=== PATIENT | female | born 1960 | race Caucasian/White ===

== ENCOUNTER → 2016-11-09 | Outpatient (CLI) | payer BC, MEDICARE ==
[~2016-11-09] MED LIST: ALBUAER3 IN; ASPI-231 PO; CARV3.1213 OR; INSUINJ37 SUBCUT; LORA10TA58 PO; MEC25T PO; MET10LQ PO; OMEP20TA44 PO; PIOG45TA6 PO; PRAV20TA3 OR; PREG50CA PO; RAMI5CAP18 PO; SUCR1TAB36 PO; [UNRECOGNIZED DRUG - CODE] PO
[2016-11-09 09:41] LABS: Basophils # (auto) 0.1 uL; Basophils % (auto) 0.6 % (0.0-2.0); Eosinophils # (auto) 0.2 uL; Eosinophils % (auto) 2.6 % (0.0-7.0); Hematocrit 33.9 % (36.0-46.0); Hemoglobin 10.9 g/dL (12.2-16.2); Lymphocytes # (auto) 1.4 uL; Mean Corpuscular Hemoglobin 27.9 pg (28.0-32.0); Mean Corpuscular Hgb Conc. 32.2 g/dL (32.0-36.0); Mean Corpuscular Volume 86.5 fL (80.0-100.0); Mean Platelet Volume 9.6 fL (7.4-10.4); Monocytes # (auto) 0.6 uL; Neutrophils # (auto) 6.6 uL; Neutrophils % (auto) 73.8 % (37.0-80.0); Platelet Count (auto) 342 10^3/uL (140-450); Red Cell Distribution Width 16.5 % (11.6-16.0)
[2016-11-09 10:17] LABS: Albumin 3.9 g/dL (3.4-5.0); BUN/Creatinine Ratio 26.4; Bilirubin, Total 0.2 mg/dL (0.2-1.0); Calcium 10.1 mg/dL (8.5-10.1); Total Protein 8.1 g/dL (6.4-8.2)
== END | disposition home or self-care (01) ==
LOC: LAB 09:27
PROVIDERS: ATTEND Podiatrist Foot & Ankle Surgery
DX: Z00.00 Encounter for general adult medical examination without abnormal findings (principal)
CPT/HCPCS: 36415; 80053; 85025

== ENCOUNTER 2017-05-03 10:52 | Inpatient (IN) | payer BC, MEDICARE ==
[~2017-05-03] VITALS: Ht 165.1 cm; Wt 99.2 kg
[2017-05-03] VITALS (42 sets, daily range): BP systolic 96–131; BP diastolic 55–76
[~2017-05-03 10:52] MED LIST changes: +CAR3125T OR; -CARV3.1213 OR
[2017-05-03] MEDS ORDERED: MORPHINE SULF INJ 2 MG/ML SYRINGE 1ML IV PRN ×2 (11:15)
[2017-05-03] MEDS ORDERED: NITROGLYCERIN 0.4 MG SL TAB SL PRN (11:15)
[2017-05-03] MEDS ORDERED: ACETAMINOPHEN 325 MG TAB PO PRN (11:15)
[2017-05-03] MEDS ORDERED: DEXTROSE (50%) 50ML SYRG IV PRN ×3 (11:15→16:30)
[2017-05-03] MEDS ORDERED: MECLIZINE HCL 25 MG TAB PO PRN (11:30)
[2017-05-03] MEDS ORDERED: ALBUTEROL SULF 2.5 MG/0.5ML(0.5%) NEB SOLN NEB PRN (11:30)
[2017-05-03] MEDS: ONDANSETRON HCL 4 MG/2 ML VIAL IV PRN ×2 (11:54→18:50)
[2017-05-03] MEDS: SODIUM CHLORIDE 0.9% 1,000 ML IV SCH ×2 (11:55→17:11)
[2017-05-03] MEDS ORDERED: ACCU-CHEK COMFORT CURVE STRIP VI SCH ×2 (12:00→13:30)
[2017-05-03] MEDS ORDERED: InsuLIN REG 1unit/0.01ml Soln (100units/ml) SC SCH (12:00)
[2017-05-03] MEDS ORDERED: InsuLIN R (HUMAN) 100 UNITS in SODIUM CHL 0.9% 99 ML IV SCH (12:17)
[2017-05-03] MEDS: SUCRALFATE 1 GM/10 ML ORAL SUSP PO SCH ×2 (12:30→17:03)
[2017-05-03] MEDS: ACCU-CHEK COMFORT CURVE STRIP VI SCH ×4 (13:44→20:00)
[2017-05-03] MEDS: METOCLOPRAMIDE HCL 10 MG TAB PO SCH ×2 (13:56→21:56)
[2017-05-03 13:57] LABS: Eosinophils # (auto) 0 uL; Hemoglobin 11.8 g/dL (12.2-16.2); Mean Platelet Volume 10.3 fL (6.9-10.8); Monocytes # (auto) 0.5 uL
[2017-05-03 13:59] LABS: Potassium 4.4 mmol/L (3.5-5.1)
[2017-05-03 14:00] LABS: BUN/Creatinine Ratio 31.6; Basophils # (auto) 0.1 uL; Basophils % (auto) 0.8 % (0.0-2.0); Calcium 9.4 mg/dL (8.5-10.1); Eosinophils % (auto) 0.4 % (0.0-7.0); Hematocrit 37.7 % (36.0-46.0); Lymphocytes % (auto) 14.6 % (10.0-50.0); Mean Corpuscular Hemoglobin 25.8 pg (28.0-32.0); Mean Corpuscular Hgb Conc. 31.4 g/dL (32.0-36.0); Mean Corpuscular Volume 82.1 fL (80.0-100.0); Neutrophils # (auto) 5.4 uL; Neutrophils % (auto) 77.2 % (37.0-80.0); Platelet Count (auto) 246 10^3/uL (140-450); Red Cell Distribution Width 17.1 % (11.8-14.3)
[2017-05-03] MEDS: BETHANECHOL CHLORIDE 25 MG TAB PO SCH ×2 (14:00→22:00)
[2017-05-03] MEDS ORDERED: BETHANECHOL CHLORIDE 25 MG TAB PO SCH (14:00)
[2017-05-03] MEDS ORDERED: INSULIN DETEMIR(LEVEMIR) 1unit/0.01ml Soln (100units/ml) SC ONE (16:00)
[2017-05-03] MEDS: HYDROmorphone HCL 2 MG/ML VL IV PRN ×2 (16:16→20:20)
[2017-05-03] MEDS: InsuLIN REG 1unit/0.01ml Soln (100units/ml) SC SCH (20:00)
[2017-05-03] MEDS: PRAVASTATIN SODIUM 20 MG TAB PO SCH (21:55)
[2017-05-03] MEDS: PREGABALIN 25 MG CAP PO SCH (21:56)
[2017-05-03] MEDS: LORATADINE 10 MG TAB PO SCH (21:56)
[2017-05-03] MEDS ORDERED: PANTOPRAZOLE 40 MG TAB PO SCH (22:00)
[2017-05-03] MEDS: [UNRECOGNIZED DRUG - OTHER] PO SCH (22:00)
[2017-05-03] MEDS: UROCIT K 10 MEQ PO SCH (22:00)
[2017-05-03] MEDS ORDERED: PRAVASTATIN SODIUM 20 MG TAB PO SCH (22:00)
[2017-05-04] VITALS (35 sets, daily range): BP systolic 93–132; BP diastolic 53–73
[2017-05-04] MEDS: SODIUM CHLORIDE 0.9% 1,000 ML IV SCH ×4 (00:20→22:00)
[2017-05-04] MEDS: HYDROmorphone HCL 2 MG/ML VL IV PRN ×4 (00:21→22:00)
[2017-05-04 03:32] LABS: Basophils # (auto) 0.1 uL; Eosinophils # (auto) 0.2 uL; Hemoglobin 10.4 g/dL (12.2-16.2); Neutrophils # (auto) 2.5 uL; White Blood Cell 4.9 10^3/uL (4.4-10.8)
[2017-05-04 03:34] LABS: Basophils % (auto) 1.3 % (0.0-2.0); Eosinophils % (auto) 4.6 % (0.0-7.0); Hematocrit 32.1 % (36.0-46.0); Lymphocytes # (auto) 1.5 uL; Lymphocytes % (auto) 30.5 % (10.0-50.0); Mean Corpuscular Hemoglobin 25.9 pg (28.0-32.0); Mean Corpuscular Hgb Conc. 32.3 g/dL (32.0-36.0); Mean Corpuscular Volume 80.1 fL (80.0-100.0); Mean Platelet Volume 9.9 fL (6.9-10.8); Monocytes # (auto) 0.6 uL; Monocytes % (auto) 11.7 % (0.0-12.0); Neutrophils % (auto) 51.9 % (37.0-80.0); Platelet Count (auto) 228 10^3/uL (140-450); Red Cell Distribution Width 17.1 % (11.8-14.3)
[2017-05-04 03:57] LABS: BUN/Creatinine Ratio 35.8; Calcium 8.9 mg/dL (8.5-10.1); Potassium 4.3 mmol/L (3.5-5.1)
[2017-05-04] MEDS: ACCU-CHEK COMFORT CURVE STRIP VI SCH ×7 (04:00→23:56)
[2017-05-04] MEDS: InsuLIN REG 1unit/0.01ml Soln (100units/ml) SC SCH ×7 (04:00→23:56)
[2017-05-04 04:01] LABS: Bilirubin, Total 0.1 mg/dL (0.2-1.0); Total Protein 6.3 g/dL (6.4-8.2)
[2017-05-04] MEDS: BETHANECHOL CHLORIDE 25 MG TAB PO SCH ×3 (06:00→21:50)
[2017-05-04] MEDS: METOCLOPRAMIDE HCL 10 MG TAB PO SCH ×3 (06:10→21:47)
[2017-05-04] MEDS: SUCRALFATE 1 GM/10 ML ORAL SUSP PO SCH ×3 (07:22→16:38)
[2017-05-04] MEDS: ONDANSETRON HCL 4 MG/2 ML VIAL IV PRN ×3 (07:57→21:54)
[2017-05-04 08:26] LABS: Urine Mucus FEW (None Seen); Urine RBC 1 /hpf (0 - 4); Urine Squamous Epithelial Cell MANY /hpf (<5)
[2017-05-04] MEDS: UROCIT K 10 MEQ PO SCH ×2 (09:11→21:49)
[2017-05-04] MEDS: RAMIPRIL 2.5 MG CAP PO SCH (09:12)
[2017-05-04] MEDS: PANTOPRAZOLE 40 MG/10 ML VIAL IV SCH ×2 (09:19→21:51)
[2017-05-04] MEDS: ASPirin 81 mg TAB PO SCH (09:20)
[2017-05-04] MEDS: CARVEDILOL 3.125 MG TAB PO SCH (09:20)
[2017-05-04] MEDS: CITALOPRAM HYDROBR 20 MG TAB PO SCH (09:20)
[2017-05-04] MEDS: FUROSEMIDE 40 MG TAB PO SCH (09:21)
[2017-05-04] MEDS: PREGABALIN 25 MG CAP PO SCH ×2 (09:21→21:46)
[2017-05-04] MEDS: PRAVASTATIN SODIUM 20 MG TAB PO SCH (21:47)
[2017-05-04] MEDS: [UNRECOGNIZED DRUG - OTHER] PO SCH (21:48)
[2017-05-04] MEDS: LORATADINE 10 MG TAB PO SCH (21:48)
[2017-05-05] MEDS: SODIUM CHLORIDE 0.9% 1,000 ML IV SCH ×4 (03:15→23:27)
[2017-05-05] MEDS: InsuLIN REG 1unit/0.01ml Soln (100units/ml) SC SCH ×6 (03:48→23:39)
[2017-05-05] MEDS: ACCU-CHEK COMFORT CURVE STRIP VI SCH ×6 (03:48→23:39)
[2017-05-05 05:00] VITALS: BP 136/67
[2017-05-05 05:13] LABS: Basophils # (auto) 0.1 uL; Eosinophils # (auto) 0.2 uL; Lymphocytes # (auto) 1.2 uL; Mean Corpuscular Hemoglobin 26.2 pg (28.0-32.0); Mean Corpuscular Hgb Conc. 32.5 g/dL (32.0-36.0); Mean Platelet Volume 10.3 fL (6.9-10.8); Monocytes # (auto) 0.5 uL; Neutrophils # (auto) 2.7 uL
[2017-05-05 05:18] LABS: Basophils % (auto) 1.3 % (0.0-2.0); Eosinophils % (auto) 5.3 % (0.0-7.0); Hematocrit 31.4 % (36.0-46.0); Hemoglobin 10.2 g/dL (12.2-16.2); Mean Corpuscular Volume 80.7 fL (80.0-100.0); Monocytes % (auto) 10.6 % (0.0-12.0); Neutrophils % (auto) 57.8 % (37.0-80.0); Platelet Count (auto) 202 10^3/uL (140-450); Red Cell Distribution Width 16.5 % (11.8-14.3); White Blood Cell 4.7 10^3/uL (4.4-10.8)
[2017-05-05 05:35] LABS: Potassium 4.5 mmol/L (3.5-5.1)
[2017-05-05 05:44] LABS: Albumin 2.9 g/dL (3.4-5.0); BUN/Creatinine Ratio 19.7; Calcium 8.6 mg/dL (8.5-10.1)
[2017-05-05 05:48] LABS: Bilirubin, Total 0.2 mg/dL (0.2-1.0); Total Protein 6.2 g/dL (6.4-8.2)
[2017-05-05] MEDS: BETHANECHOL CHLORIDE 25 MG TAB PO SCH ×3 (06:30→21:38)
[2017-05-05] MEDS: METOCLOPRAMIDE HCL 10 MG TAB PO SCH ×3 (06:52→21:33)
[2017-05-05] MEDS: SUCRALFATE 1 GM/10 ML ORAL SUSP PO SCH ×3 (06:53→17:11)
[2017-05-05] MEDS: HYDROmorphone HCL 2 MG/ML VL IV PRN ×3 (07:42→23:26)
[2017-05-05] MEDS: ONDANSETRON HCL 4 MG/2 ML VIAL IV PRN ×3 (07:42→23:26)
[2017-05-05 09:00] VITALS: BP 125/96
[2017-05-05] MEDS: UROCIT K 10 MEQ PO SCH ×2 (10:00→21:36)
[2017-05-05] MEDS: RAMIPRIL 2.5 MG CAP PO SCH (10:00)
[2017-05-05] MEDS: PREGABALIN 25 MG CAP PO SCH ×2 (10:00→21:34)
[2017-05-05] MEDS: PANTOPRAZOLE 40 MG/10 ML VIAL IV SCH ×2 (10:43→21:35)
[2017-05-05] MEDS: FUROSEMIDE 40 MG TAB PO SCH (10:44)
[2017-05-05] MEDS: CITALOPRAM HYDROBR 20 MG TAB PO SCH (10:45)
[2017-05-05] MEDS: CARVEDILOL 3.125 MG TAB PO SCH (10:45)
[2017-05-05] MEDS: ASPirin 81 mg TAB PO SCH (10:57)
[2017-05-05] MEDS: [UNRECOGNIZED DRUG - OTHER] PO SCH (10:58)
[2017-05-05 13:00] VITALS: BP 102/54
[2017-05-05 17:38] VITALS: BP 87/49
[2017-05-05] MEDS: LORATADINE 10 MG TAB PO SCH (21:33)
[2017-05-05] MEDS: PRAVASTATIN SODIUM 20 MG TAB PO SCH (21:34)
[2017-05-05 22:00] VITALS: BP 112/60
[2017-05-05] MEDS: INSULIN DETEMIR(LEVEMIR) 1unit/0.01ml Soln (100units/ml) SC SCH (22:00)
[2017-05-06] MEDS: ACCU-CHEK COMFORT CURVE STRIP VI SCH ×5 (04:23→20:29)
[2017-05-06] MEDS: HYDROmorphone HCL 2 MG/ML VL IV PRN ×5 (04:24→21:49)
[2017-05-06] MEDS: InsuLIN REG 1unit/0.01ml Soln (100units/ml) SC SCH ×5 (04:24→20:30)
[2017-05-06 05:00] VITALS: BP 115/61
[2017-05-06] MEDS: SODIUM CHLORIDE 0.9% 1,000 ML IV SCH ×3 (05:40→18:47)
[2017-05-06] MEDS: BETHANECHOL CHLORIDE 25 MG TAB PO SCH ×3 (05:41→21:39)
[2017-05-06] MEDS: SUCRALFATE 1 GM/10 ML ORAL SUSP PO SCH ×3 (05:41→17:34)
[2017-05-06] MEDS: METOCLOPRAMIDE HCL 10 MG TAB PO SCH ×3 (05:41→21:39)
[2017-05-06 06:33] LABS: Eosinophils # (auto) 0.2 uL; Hemoglobin 9.8 g/dL (12.2-16.2); Lymphocytes # (auto) 1.2 uL; Mean Corpuscular Hemoglobin 25.8 pg (28.0-32.0); Mean Corpuscular Hgb Conc. 31.9 g/dL (32.0-36.0); Monocytes # (auto) 0.5 uL; White Blood Cell 4.9 10^3/uL (4.4-10.8)
[2017-05-06 06:35] LABS: Basophils # (auto) 0.1 uL; Basophils % (auto) 1.2 % (0.0-2.0); Eosinophils % (auto) 4.4 % (0.0-7.0); Hematocrit 30.8 % (36.0-46.0); Lymphocytes % (auto) 25.7 % (10.0-50.0); Mean Corpuscular Volume 80.9 fL (80.0-100.0); Mean Platelet Volume 10.6 fL (6.9-10.8); Monocytes % (auto) 10.2 % (0.0-12.0); Neutrophils # (auto) 2.8 uL; Neutrophils % (auto) 58.5 % (37.0-80.0); Nucleated Red Blood Cells % 0.1 %; Platelet Count (auto) 212 10^3/uL (140-450); Red Cell Distribution Width 16.4 % (11.8-14.3)
[2017-05-06 06:41] LABS: INR 0.99 (0.9-1.15); Partial Thromboplastin Time 21.1 sec (22.64-33.71); Prothrombin Time 10.8 sec (9.37-12.3)
[2017-05-06 06:46] LABS: Albumin 2.8 g/dL (3.4-5.0); Calcium 8.5 mg/dL (8.5-10.1); Potassium 4.2 mmol/L (3.5-5.1)
[2017-05-06 06:49] LABS: BUN/Creatinine Ratio 18.3
[2017-05-06 06:52] LABS: Bilirubin, Total 0.2 mg/dL (0.2-1.0)
[2017-05-06] MEDS: ONDANSETRON HCL 4 MG/2 ML VIAL IV PRN ×2 (08:03→17:33)
[2017-05-06] MEDS ORDERED: diphenhdrAMINE HCL 50 MG/1 ML VL ONE (08:07)
[2017-05-06] MEDS ORDERED: SODIUM CHLORIDE LOCK 10 ML ONE (08:07)
[2017-05-06] MEDS ORDERED: LIDOCAINE VISCOUS 2% 15ML UD ONE (08:07)
[2017-05-06 09:00] VITALS: BP 115/62
[2017-05-06] MEDS: RAMIPRIL 2.5 MG CAP PO SCH ×2 (10:00→16:28)
[2017-05-06] MEDS: CARVEDILOL 3.125 MG TAB PO SCH ×3 (10:00→17:34)
[2017-05-06] MEDS: CITALOPRAM HYDROBR 20 MG TAB PO SCH ×2 (10:00→16:28)
[2017-05-06] MEDS: PREGABALIN 25 MG CAP PO SCH ×2 (10:00→21:39)
[2017-05-06] MEDS: FUROSEMIDE 40 MG TAB PO SCH ×2 (10:00→16:29)
[2017-05-06] MEDS: ASPirin 81 mg TAB PO SCH (10:00)
[2017-05-06] MEDS: UROCIT K 10 MEQ PO SCH ×2 (10:00→21:38)
[2017-05-06] MEDS: PANTOPRAZOLE 40 MG/10 ML VIAL IV SCH (10:00)
[2017-05-06] MEDS: MIDAZOLAM HCL 5 MG/ML-1ML VIAL ONE ×2 (11:50→11:54)
[2017-05-06] MEDS: fentaNYL CITRATE 100 MCG/2 ML VL ONE ×2 (11:50→11:54)
[2017-05-06 13:00] VITALS: BP 144/91
[2017-05-06] MEDS: Boost Glucose Control 8 Ounces PO SCH ×2 (13:18→18:44)
[2017-05-06 15:33] VITALS: BP 156/86
[2017-05-06 17:00] VITALS: BP 120/68
[2017-05-06] MEDS: [UNRECOGNIZED DRUG - OTHER] PO SCH (21:38)
[2017-05-06] MEDS: LORATADINE 10 MG TAB PO SCH (21:39)
[2017-05-06] MEDS: PRAVASTATIN SODIUM 20 MG TAB PO SCH (21:39)
[2017-05-06] MEDS: PANTOPRAZOLE 40 MG TAB PO SCH (21:39)
[2017-05-06] MEDS: INSULIN DETEMIR(LEVEMIR) 1unit/0.01ml Soln (100units/ml) SC SCH (21:40)
[2017-05-06 22:09] VITALS: BP 106/51
[2017-05-07] MEDS: InsuLIN REG 1unit/0.01ml Soln (100units/ml) SC SCH ×3 (01:26→08:00)
[2017-05-07] MEDS: HYDROmorphone HCL 2 MG/ML VL IV PRN ×2 (01:39→09:23)
[2017-05-07] MEDS: SODIUM CHLORIDE 0.9% 1,000 ML IV SCH (01:55)
[2017-05-07] MEDS: ACCU-CHEK COMFORT CURVE STRIP VI SCH ×3 (04:00→10:29)
[2017-05-07 05:20] VITALS: BP 90/45
[2017-05-07] MEDS: METOCLOPRAMIDE HCL 10 MG TAB PO SCH (06:00)
[2017-05-07] MEDS: BETHANECHOL CHLORIDE 25 MG TAB PO SCH (06:00)
[2017-05-07 06:46] LABS: Basophils # (auto) 0 uL; Eosinophils # (auto) 0.3 uL; Hemoglobin 9.8 g/dL (12.2-16.2); Neutrophils # (auto) 2.9 uL
[2017-05-07 06:49] LABS: Basophils % (auto) 0.9 % (0.0-2.0); Eosinophils % (auto) 5.1 % (0.0-7.0); Hematocrit 30.7 % (36.0-46.0); Lymphocytes # (auto) 1.3 uL; Lymphocytes % (auto) 25.5 % (10.0-50.0); Mean Corpuscular Hemoglobin 25.9 pg (28.0-32.0); Mean Corpuscular Volume 80.9 fL (80.0-100.0); Mean Platelet Volume 10.3 fL (6.9-10.8); Monocytes # (auto) 0.6 uL; Neutrophils % (auto) 56.5 % (37.0-80.0); Platelet Count (auto) 210 10^3/uL (140-450); Red Cell Distribution Width 16.2 % (11.8-14.3); White Blood Cell 5.2 10^3/uL (4.4-10.8)
[2017-05-07] MEDS: SUCRALFATE 1 GM/10 ML ORAL SUSP PO SCH (07:04)
[2017-05-07 07:13] LABS: BUN/Creatinine Ratio 25.3; Calcium 8.7 mg/dL (8.5-10.1); Potassium 4.4 mmol/L (3.5-5.1)
[2017-05-07 09:00] VITALS: BP 107/59
[2017-05-07] MEDS: UROCIT K 10 MEQ PO SCH (10:00)
[2017-05-07] MEDS: Boost Glucose Control 8 Ounces PO SCH (10:29)
[2017-05-07] MEDS: PREGABALIN 25 MG CAP PO SCH (10:30)
[2017-05-07] MEDS: ASPirin 81 mg TAB PO SCH (10:30)
[2017-05-07] MEDS: RAMIPRIL 2.5 MG CAP PO SCH (10:30)
[2017-05-07] MEDS: FUROSEMIDE 40 MG TAB PO SCH (10:31)
[2017-05-07] MEDS: CARVEDILOL 3.125 MG TAB PO SCH (10:31)
[2017-05-07] MEDS: PANTOPRAZOLE 40 MG TAB PO SCH (10:31)
[2017-05-07] MEDS: CITALOPRAM HYDROBR 20 MG TAB PO SCH (10:31)
[2017-05-07 10:51] VITALS: BP 107/59
[2017-05-07 13:00] VITALS: BP 107/70
== END 2017-05-07 12:00 | disposition home or self-care (01) | DRG 392 ==
LOC: TELE-CENTR 10:52 → ICU WEST 12:50 → TELE-EAST 05-04 11:47 → OVERFLOW 05-06 15:28 → TELE-EAST 05-06 15:29
PROVIDERS: ADMIT Internal Medicine; ATTEND Internal Medicine
PROC: 0DB68ZX Excision of Stomach, Via Natural or Artificial Opening Endoscopic, Diagnostic (ICD-10-PCS; principal; 2017-05-06 11:45)
DX: K21.0 Gastro-esophageal reflux disease with esophagitis (principal); E44.0 Moderate protein-calorie malnutrition; K29.70 Gastritis, unspecified, without bleeding; R13.10 Dysphagia, unspecified; I10 Essential (primary) hypertension; K29.60 Other gastritis without bleeding; E11.9 Type 2 diabetes mellitus without complications; E86.0 Dehydration; J45.909 Unspecified asthma, uncomplicated; Z87.440 Personal history of urinary (tract) infections; Z87.11 Personal history of peptic ulcer disease; Z68.36 Body mass index [BMI] 36.0-36.9, adult; Z90.49 Acquired absence of other specified parts of digestive tract; Z90.710 Acquired absence of both cervix and uterus
CPT/HCPCS: 36415; 71010; 80048; 80053; 81015; 82962; 83690; 85025; 85610; 85730; 87081; 87086; 93005; C9113; J1815; J2250; J2405

== ENCOUNTER 2017-06-02 14:16 | Inpatient (IN) | payer BC, MEDICARE ==
[~2017-06-02] VITALS: Ht 165.1 cm; Wt 96.5 kg
[2017-06-02] MEDS ORDERED: SODIUM CHLORIDE 0.9% 1,000 ML IV ONE ×4 (14:59→18:15)
[2017-06-02 15:20] LABS: Basophils # (auto) 0 uL; Basophils % (auto) 0.1 % (0.0-2.0); Eosinophils # (auto) 0 uL; Eosinophils % (auto) 0.1 % (0.0-7.0); Hematocrit 34.5 % (36.0-46.0); Hemoglobin 10.8 g/dL (12.2-16.2); Lymphocytes # (auto) 0.4 uL; Lymphocytes % (auto) 3.1 % (10.0-50.0); Mean Corpuscular Hemoglobin 25.8 pg (28.0-32.0); Mean Corpuscular Hgb Conc. 31.3 g/dL (32.0-36.0); Mean Corpuscular Volume 82.5 fL (80.0-100.0); Monocytes # (auto) 0.9 uL; Monocytes % (auto) 5.9 % (0.0-12.0); Neutrophils # (auto) 13.3 uL; Neutrophils % (auto) 90.8 % (37.0-80.0); Platelet Count (auto) 196 10^3/uL (140-450); Red Blood Cells 4.18 10^6/uL (4.0-5.20); Red Cell Distribution Width 17.6 % (11.8-14.3); White Blood Cell 14.6 10^3/uL (4.4-10.8)
[2017-06-02 15:29] LABS: INR 0.9 (0.9-1.15); Prothrombin Time 9.8 sec (9.37-12.3)
[2017-06-02 15:32] LABS: Albumin 2.5 g/dL (3.4-5.0); Anion Gap 23 (5-15); Blood Urea Nitrogen 44 mg/dL (7-18); Calcium 9.7 mg/dL (8.5-10.1); Carbon Dioxide 12 mmol/L (21-32); Chloride 82 mmol/L (98-107); Magnesium 2.2 mg/dL (1.6-2.6); Potassium 4.5 mmol/L (3.5-5.1)
[2017-06-02 15:33] LABS: Amylase 17 U/L (25-115); Lipase 125 U/L (73-393)
[2017-06-02 15:36] LABS: Alanine Aminotransferase 13 U/L (13-56); Aspartate Aminotransferase 7 U/L (15-37); GFR African American 57 mL/min; GFR Non-African American 47 mL/min; Total Protein 8.1 g/dL (6.4-8.2)
[2017-06-02 15:41] LABS: Alkaline Phosphatase 137 U/L (45-117); Bilirubin, Total 0.5 mg/dL (0.2-1.0)
[2017-06-02 15:56] LABS: Sodium 117 mmol/L (136-145)
[2017-06-02 15:57] LABS: BUN/Creatinine Ratio 35.2; Glucose 715 mg/dL (74-106)
[2017-06-02] MEDS ORDERED: InsuLIN R (HUMAN) 100 UNITS in SODIUM CHL 0.9% 99 ML IV SCH ×2 (15:57→16:54)
[2017-06-02] MEDS ORDERED: PIPERACILLIN-TAZOB 3.375GM 100 ML IV ONE ×2 (16:00→18:00)
[2017-06-02] MEDS ORDERED: DEXTROSE (50%) 50ML SYRG IV PRN ×2 (16:00→17:00)
[2017-06-02] MEDS ORDERED: ACCU-CHEK COMFORT CURVE STRIP VI SCH (16:30)
[2017-06-02] MEDS ORDERED: SOD CHL 0.9%/ KCL 20MEQ 1,000 ML IV SCH (17:00)
[2017-06-02] MEDS ORDERED: NITROGLYCERIN 0.4 MG SL TAB SL PRN (17:00)
[2017-06-02] MEDS ORDERED: MORPHINE SULFATE 10 MG/ML INJ 1ML SDV IV PRN (17:00)
[2017-06-02] MEDS: PROMETHAZINE HCL 25 MG/ML 1ML IV PRN (17:30)
[2017-06-02] MEDS: ACCU-CHEK COMFORT CURVE STRIP VI SCH ×4 (17:38→22:30)
[2017-06-02] MEDS: HYDROmorphone HCL 2 MG/ML VL IV PRN (17:42)
[2017-06-02 17:50] LABS: BUN/Creatinine Ratio 38.1; Calcium 9.3 mg/dL (8.5-10.1); Potassium 4.4 mmol/L (3.5-5.1)
[2017-06-02] MEDS ORDERED: cefTRIAXone 1GM/50ML D5W 50 ML IV ONE (18:00)
[2017-06-02] MEDS ORDERED: PANTOPRAZOLE 40 MG/10 ML VIAL IV ONE (18:00)
[2017-06-02 18:45] LABS: Urine Bacteria NONE SEEN /hpf (None Seen); Urine Blood Negative /uL (Negative); Urine Specific Gravity 1.016 (1.001-1.035); Urine WBC 6 /hpf (0 - 5)
[2017-06-02] MEDS: SOD CHL 0.9%/ KCL 20MEQ 1,000 ML IV SCH (20:00)
[2017-06-02] MEDS: PANTOPRAZOLE 80 MG in SODIUM CHL 0.9% 60 ML IV SCH (20:00)
[2017-06-03 00:24] LABS: BUN/Creatinine Ratio 34.4; Potassium 3.8 mmol/L (3.5-5.1)
[2017-06-03] MEDS: ACCU-CHEK COMFORT CURVE STRIP VI SCH ×6 (00:40→23:53)
[2017-06-03] MEDS: HYDROmorphone HCL 2 MG/ML VL IV PRN ×4 (01:06→20:22)
[2017-06-03] MEDS: PROMETHAZINE HCL 25 MG/ML 1ML IV PRN ×4 (01:06→20:22)
[2017-06-03] MEDS ORDERED: DEXTROSE (50%) 50ML SYRG IV PRN ×2 (01:30→06:15)
[2017-06-03] MEDS ORDERED: InsuLIN REG 1unit/0.01ml Soln (100units/ml) ONE (01:39)
[2017-06-03] MEDS: SOD CHL 0.9%/ KCL 20MEQ 1,000 ML IV SCH ×4 (03:00→23:53)
[2017-06-03 03:43] LABS: Basophils # (auto) 0 uL; Hemoglobin 9.6 g/dL (12.2-16.2); Monocytes # (auto) 1.3 uL
[2017-06-03 03:45] LABS: Basophils % (auto) 0.1 % (0.0-2.0); Eosinophils # (auto) 0.1 uL; Eosinophils % (auto) 0.5 % (0.0-7.0); Hematocrit 29.7 % (36.0-46.0); Lymphocytes # (auto) 0.6 uL; Lymphocytes % (auto) 4.3 % (10.0-50.0); Mean Corpuscular Hemoglobin 25.3 pg (28.0-32.0); Mean Corpuscular Hgb Conc. 32.4 g/dL (32.0-36.0); Mean Corpuscular Volume 78.2 fL (80.0-100.0); Monocytes % (auto) 8.8 % (0.0-12.0); Neutrophils # (auto) 12.8 uL; Neutrophils % (auto) 86.3 % (37.0-80.0); Platelet Count (auto) 175 10^3/uL (140-450); White Blood Cell 14.9 10^3/uL (4.4-10.8)
[2017-06-03] MEDS ORDERED: ACCU-CHEK COMFORT CURVE STRIP VI SCH (04:00)
[2017-06-03] MEDS ORDERED: InsuLIN REG 1unit/0.01ml Soln (100units/ml) SC SCH (04:00)
[2017-06-03 04:01] LABS: BUN/Creatinine Ratio 33.8; Calcium 8.6 mg/dL (8.5-10.1); Potassium 3.9 mmol/L (3.5-5.1)
[2017-06-03] MEDS: PANTOPRAZOLE 80 MG in SODIUM CHL 0.9% 60 ML IV SCH (04:27)
[2017-06-03] MEDS: InsuLIN REG 1unit/0.01ml Soln (100units/ml) SC SCH ×5 (08:15→23:54)
[2017-06-03] MEDS: cefTRIAXone 1GM/50ML D5W 50 ML IV SCH (09:30)
[2017-06-03] MEDS: METOCLOPRAMIDE HCL 5MG/ml INJ 2ml VIAL IV SCH ×2 (16:48→22:23)
[2017-06-03] MEDS: SUCRALFATE 1 GM/10 ML ORAL SUSP PO SCH ×2 (16:49→22:23)
[2017-06-03 17:00] VITALS: BP 156/89
[2017-06-03 20:00] VITALS: BP 150/65
[2017-06-03 21:30] VITALS: BP 150/65
[2017-06-03] MEDS: PANTOPRAZOLE 40 MG/10 ML VIAL IV SCH (22:24)
[2017-06-04] VITALS (8 sets, daily range): BP systolic 132–182; BP diastolic 72–89
[2017-06-04] MEDS: HYDROmorphone HCL 2 MG/ML VL IV PRN ×4 (02:36→21:07)
[2017-06-04] MEDS: PROMETHAZINE HCL 25 MG/ML 1ML IV PRN ×4 (02:36→21:06)
[2017-06-04] MEDS: InsuLIN REG 1unit/0.01ml Soln (100units/ml) SC SCH ×6 (04:01→23:50)
[2017-06-04] MEDS: ACCU-CHEK COMFORT CURVE STRIP VI SCH ×6 (04:01→23:50)
[2017-06-04] MEDS: METOCLOPRAMIDE HCL 5MG/ml INJ 2ml VIAL IV SCH ×3 (06:18→22:03)
[2017-06-04] MEDS: SUCRALFATE 1 GM/10 ML ORAL SUSP PO SCH ×4 (06:18→22:03)
[2017-06-04] MEDS ORDERED: METF-370 PO (07:07)
[2017-06-04 07:30] LABS: Basophils # (auto) 0 uL; Eosinophils # (auto) 0.3 uL; Hematocrit 31.6 % (36.0-46.0); Hemoglobin 10.3 g/dL (12.2-16.2); Lymphocytes # (auto) 1.1 uL; Neutrophils # (auto) 7.7 uL; Red Blood Cells 4.02 10^6/uL (4.0-5.20)
[2017-06-04 07:32] LABS: Basophils % (auto) 0.4 % (0.0-2.0); Lymphocytes % (auto) 10.5 % (10.0-50.0); Mean Corpuscular Hemoglobin 25.7 pg (28.0-32.0); Mean Corpuscular Hgb Conc. 32.7 g/dL (32.0-36.0); Mean Corpuscular Volume 78.7 fL (80.0-100.0); Monocytes % (auto) 9.8 % (0.0-12.0); Neutrophils % (auto) 76.3 % (37.0-80.0); Platelet Count (auto) 183 10^3/uL (140-450); Red Cell Distribution Width 17.3 % (11.8-14.3)
[2017-06-04 08:00] LABS: BUN/Creatinine Ratio 17.2; Bilirubin, Total 0.4 mg/dL (0.2-1.0); Calcium 8.4 mg/dL (8.5-10.1); Potassium 3.5 mmol/L (3.5-5.1); Total Protein 6.6 g/dL (6.4-8.2)
[2017-06-04] MEDS: SOD CHL 0.9%/ KCL 20MEQ 1,000 ML IV SCH ×3 (08:15→18:00)
[2017-06-04] MEDS: cefTRIAXone 1GM/50ML D5W 50 ML IV SCH (09:37)
[2017-06-04] MEDS: PANTOPRAZOLE 40 MG/10 ML VIAL IV SCH ×2 (09:37→22:03)
[2017-06-04] MEDS: LISINOPRIL 5 MG TAB PO SCH (09:38)
[2017-06-05] VITALS (8 sets, daily range): BP systolic 105–165; BP diastolic 48–89
[2017-06-05] MEDS: ACCU-CHEK COMFORT CURVE STRIP VI SCH ×5 (04:28→20:54)
[2017-06-05] MEDS: InsuLIN REG 1unit/0.01ml Soln (100units/ml) SC SCH ×5 (04:28→20:54)
[2017-06-05] MEDS: PROMETHAZINE HCL 25 MG/ML 1ML IV PRN (04:29)
[2017-06-05] MEDS: HYDROmorphone HCL 2 MG/ML VL IV PRN ×5 (04:29→22:46)
[2017-06-05] MEDS: SOD CHL 0.9%/ KCL 20MEQ 1,000 ML IV SCH ×3 (04:54→22:46)
[2017-06-05] MEDS: SUCRALFATE 1 GM/10 ML ORAL SUSP PO SCH ×4 (06:09→21:43)
[2017-06-05] MEDS: METOCLOPRAMIDE HCL 5MG/ml INJ 2ml VIAL IV SCH ×3 (06:09→21:44)
[2017-06-05 07:36] LABS: BUN/Creatinine Ratio 10.6; Calcium 8.2 mg/dL (8.5-10.1); Potassium 3.5 mmol/L (3.5-5.1)
[2017-06-05] MEDS: LISINOPRIL 5 MG TAB PO SCH (09:58)
[2017-06-05] MEDS: cefTRIAXone 1GM/50ML D5W 50 ML IV SCH (09:58)
[2017-06-05] MEDS: PANTOPRAZOLE 40 MG/10 ML VIAL IV SCH ×2 (09:58→21:45)
[2017-06-05] MEDS: ALBUTEROL SULF 2.5 MG/0.5ML(0.5%) NEB SOLN NEB PRN (20:59)
[2017-06-06] VITALS (8 sets, daily range): BP systolic 124–162; BP diastolic 77–89
[2017-06-06] MEDS: ACCU-CHEK COMFORT CURVE STRIP VI SCH ×6 (00:24→21:00)
[2017-06-06] MEDS: InsuLIN REG 1unit/0.01ml Soln (100units/ml) SC SCH ×6 (00:25→21:00)
[2017-06-06] MEDS: HYDROmorphone HCL 2 MG/ML VL IV PRN ×5 (04:31→22:02)
[2017-06-06 06:20] LABS: Hemoglobin 9.6 g/dL (12.2-16.2); White Blood Cell 7.3 10^3/uL (4.4-10.8)
[2017-06-06 06:21] LABS: Hematocrit 29.8 % (36.0-46.0); Mean Corpuscular Hemoglobin 25.4 pg (28.0-32.0); Mean Corpuscular Hgb Conc. 32.3 g/dL (32.0-36.0); Mean Corpuscular Volume 78.5 fL (80.0-100.0); Platelet Count (auto) 221 10^3/uL (140-450); Red Cell Distribution Width 17.7 % (11.8-14.3)
[2017-06-06 06:24] LABS: Basophils % (manual) 0 (0.0-2.0); Blast Cells 0; Myelocytes % 0; Promyelocytes % 0; Reactive Lymphocytes 0
[2017-06-06] MEDS: METOCLOPRAMIDE HCL 5MG/ml INJ 2ml VIAL IV SCH (06:30)
[2017-06-06] MEDS: SUCRALFATE 1 GM/10 ML ORAL SUSP PO SCH ×4 (06:30→21:58)
[2017-06-06 06:34] LABS: Albumin 1.9 g/dL (3.4-5.0); BUN/Creatinine Ratio 9.8; Bilirubin, Total 0.2 mg/dL (0.2-1.0); Calcium 8.2 mg/dL (8.5-10.1); Potassium 3.2 mmol/L (3.5-5.1); Total Protein 6.2 g/dL (6.4-8.2)
[2017-06-06 07:28] LABS: Band Neutrophils % (manual) 6; Eosinophils % (manual) 3 (0-7); Lymphocytes % (manual) 15 (10.0-50.0); Metamyelocytes % 2; Monocytes % (manual) 19 (0-12)
[2017-06-06] MEDS: ALBUTEROL SULF 2.5 MG/0.5ML(0.5%) NEB SOLN NEB PRN ×3 (07:35→22:15)
[2017-06-06] MEDS: cefTRIAXone 1GM/50ML D5W 50 ML IV SCH (09:44)
[2017-06-06] MEDS: PANTOPRAZOLE 40 MG/10 ML VIAL IV SCH ×2 (09:44→22:01)
[2017-06-06] MEDS: LISINOPRIL 5 MG TAB PO SCH (09:44)
[2017-06-06] MEDS ORDERED: InsuLIN REG 1unit/0.01ml Soln (100units/ml) SC ONE (12:30)
[2017-06-06] MEDS: POTASSIUM CHLORIDE 40 MEQ, LIDOCAINE 1% (LOCAL ANESTH.) 4 ML in SODIUM CHL 0.9% 250 ML IV SCH ×2 (12:33→16:21)
[2017-06-06] MEDS: SOD CHL 0.9%/ KCL 20MEQ 1,000 ML IV SCH (12:55)
[2017-06-06] MEDS: METOCLOPRAMIDE HCL 10 MG TAB PO SCH ×2 (13:07→22:03)
[2017-06-06] MEDS ORDERED: INSULIN DETEMIR(LEVEMIR) 1unit/0.01ml Soln (100units/ml) SC SCH (22:00)
[2017-06-07] MEDS: ACCU-CHEK COMFORT CURVE STRIP VI SCH ×3 (00:09→08:21)
[2017-06-07] MEDS: SOD CHL 0.9%/ KCL 20MEQ 1,000 ML IV SCH (02:35)
[2017-06-07] MEDS: HYDROmorphone HCL 2 MG/ML VL IV PRN ×2 (02:36→06:20)
[2017-06-07] MEDS: InsuLIN REG 1unit/0.01ml Soln (100units/ml) SC SCH ×3 (04:44→08:21)
[2017-06-07 05:00] VITALS: BP 141/82
[2017-06-07] MEDS: METOCLOPRAMIDE HCL 10 MG TAB PO SCH (06:12)
[2017-06-07] MEDS: SUCRALFATE 1 GM/10 ML ORAL SUSP PO SCH (06:12)
[2017-06-07] MEDS: ALBUTEROL SULF 2.5 MG/0.5ML(0.5%) NEB SOLN NEB PRN (06:44)
[2017-06-07 07:05] LABS: BUN/Creatinine Ratio 7.4; Calcium 8.9 mg/dL (8.5-10.1); Magnesium 1.9 mg/dL (1.6-2.6); Potassium 3.9 mmol/L (3.5-5.1)
[2017-06-07 09:44] VITALS: BP 131/79
== END 2017-06-07 10:40 | disposition home or self-care (01) | DRG 871 ==
LOC: ER 14:16 → TELE 14:17 → TELE-E-ADS 06-03 10:36 → TELE-CENTR 06-03 16:12
PROVIDERS: ADMIT Internal Medicine; ATTEND Internal Medicine
DX: A41.51 Sepsis due to Escherichia coli [E. coli] (principal); E11.10 Type 2 diabetes mellitus with ketoacidosis without coma; E43 Unspecified severe protein-calorie malnutrition; E11.42 Type 2 diabetes mellitus with diabetic polyneuropathy; K31.84 Gastroparesis; E83.42 Hypomagnesemia; E86.0 Dehydration; N39.0 Urinary tract infection, site not specified; E87.1 Hypo-osmolality and hyponatremia; K25.9 Gastric ulcer, unspecified as acute or chronic, without hemorrhage or perforation; K29.70 Gastritis, unspecified, without bleeding; D64.9 Anemia, unspecified; E78.5 Hyperlipidemia, unspecified; F41.9 Anxiety disorder, unspecified; I10 Essential (primary) hypertension; J44.9 Chronic obstructive pulmonary disease, unspecified; K21.9 Gastro-esophageal reflux disease without esophagitis; Z88.6 Allergy status to analgesic agent; Z68.35 Body mass index [BMI] 35.0-35.9, adult; Z90.49 Acquired absence of other specified parts of digestive tract; Z90.710 Acquired absence of both cervix and uterus; I25.2 Old myocardial infarction; Z23 Encounter for immunization
CPT/HCPCS: 36415; 36600; 71010; 74176; 80048; 80053; 81001; 82010; 82150; 82805; 82962; 83605; 83690; 83735; 84484; 85007; 85025; 85027; 85610; 85730; 87040; 87077; 87086; 87088; 87186; 93005; 94640; 96361; 96372; 96374; 96375; C9113; J0696; J1815; J2001; J2543

== ENCOUNTER 2018-08-12 11:45 | Emergency (ER) | payer MEDICARE, BC ==
[~2018-08-12] VITALS: Ht 165.1 cm; Wt 89.4 kg
[~2018-08-12 11:45] MED LIST changes: +METF-370 PO; -PIOG45TA6 PO; +PIOG45TA8 PO; -RAMI5CAP18 PO; -[UNRECOGNIZED DRUG - CODE] PO
[2018-08-12] MEDS ORDERED: CARISOPRODOL 350 MG TAB PO ONE (12:30)
[2018-08-12 13:06] LABS: Basophils # (auto) 0.1 uL; Eosinophils # (auto) 0.1 uL; Monocytes # (auto) 0.8 uL; Nucleated Red Blood Cells % 0.1 %
[2018-08-12 13:08] LABS: Basophils % (auto) 0.7 % (0.0-2.0); Eosinophils % (auto) 1.1 % (0.0-7.0); Hematocrit 33.9 % (36.0-46.0); Hemoglobin 10.3 g/dL (12.2-16.2); Lymphocytes # (auto) 1.2 uL; Lymphocytes % (auto) 10.8 % (10.0-50.0); Mean Corpuscular Hemoglobin 22.7 pg (28.0-32.0); Mean Corpuscular Hgb Conc. 30.4 g/dL (32.0-36.0); Mean Corpuscular Volume 74.7 fL (80.0-100.0); Neutrophils % (auto) 80.4 % (37.0-80.0); Platelet Count (auto) 386 10^3/uL (140-450); Red Blood Cells 4.55 10^6/uL (4.0-5.20); Red Cell Distribution Width 17.9 % (11.8-14.3); White Blood Cell 11.2 10^3/uL (4.4-10.8)
[2018-08-12 13:19] LABS: INR 0.95 (0.9-1.15); Partial Thromboplastin Time 31.3 sec (23.78-33.04); Prothrombin Time 10.2 sec (9.27-12.13)
[2018-08-12 13:24] LABS: Alanine Aminotransferase 23 U/L (13-56); Albumin 3.3 g/dL (3.4-5.0); Anion Gap 12 (5-15); Aspartate Aminotransferase 18 U/L (15-37); BUN/Creatinine Ratio 12.1; Blood Urea Nitrogen 17 mg/dL (7-18); Calcium 8.8 mg/dL (8.5-10.1); Carbon Dioxide 19 mmol/L (21-32); Chloride 106 mmol/L (98-107); GFR African American 50 mL/min; GFR Non-African American 41 mL/min; Glucose 154 mg/dL (74-106); Magnesium 1.9 mg/dL (1.6-2.6); Potassium 4.4 mmol/L (3.5-5.1); Sodium 137 mmol/L (136-145)
[2018-08-12 13:29] LABS: Alkaline Phosphatase 100 U/L (45-117); Bilirubin, Total 0.3 mg/dL (0.2-1.0); Total Protein 7.5 g/dL (6.4-8.2)
[2018-08-12] MEDS ORDERED: cefTRIAXone 1GM/50ML D5W 50 ML IV ONE (14:45)
[2018-08-12 14:57] VITALS: BP 95/63
== END 2018-08-12 15:20 | disposition home or self-care (01) ==
LOC: ER 11:59 → UNDOADMIN 14:03 → TELE 14:03 → ER 15:20
DX: S29.011A Strain of muscle and tendon of front wall of thorax, initial encounter (principal); N39.0 Urinary tract infection, site not specified; J44.9 Chronic obstructive pulmonary disease, unspecified; E11.9 Type 2 diabetes mellitus without complications; I10 Essential (primary) hypertension; I25.2 Old myocardial infarction; Z88.6 Allergy status to analgesic agent; Z79.82 Long term (current) use of aspirin; Z79.899 Other long term (current) drug therapy; Z79.84 Long term (current) use of oral hypoglycemic drugs; W22.8XXA Striking against or struck by other objects, initial encounter; Y93.89 Activity, other specified; Y99.8 Other external cause status; Y92.89 Other specified places as the place of occurrence of the external cause
CPT/HCPCS: 36415; 70450; 71101; 80053; 83735; 83880; 84484; 85025; 85610; 85730; 93005; 96365; 99284; J0696

== ENCOUNTER 2019-04-15 09:21 | Day surgery (SDC) | payer MEDICARE, BC ==
[2019-04-14 13:04] LABS: Basophils # (auto) 0.1 uL; Basophils % (auto) 0.7 % (0.0-2.0); Eosinophils # (auto) 0.2 uL; Eosinophils % (auto) 2.4 % (0.0-7.0); Hematocrit 34.1 % (36.0-46.0); Lymphocytes # (auto) 1.1 uL; Lymphocytes % (auto) 15.2 % (10.0-50.0); Mean Corpuscular Hemoglobin 28.6 pg (28.0-32.0); Mean Corpuscular Hgb Conc. 32.2 g/dL (32.0-36.0); Mean Corpuscular Volume 88.6 fL (80.0-100.0); Monocytes # (auto) 0.4 uL; Monocytes % (auto) 5.4 % (0.0-12.0); Neutrophils # (auto) 5.7 uL; Neutrophils % (auto) 76.3 % (37.0-80.0); Platelet Count (auto) 322 10^3/uL (140-450); Red Blood Cells 3.85 10^6/uL (4.0-5.20); Red Cell Distribution Width 15.8 % (11.8-14.3); Urine Bacteria NONE SEEN /hpf (None Seen); Urine Blood Negative /uL (Negative); Urine Hyaline Cast FEW /lpf (0 - 2); Urine Specific Gravity 1.027 (1.001-1.035); Urine WBC 1 /hpf (0 - 5); White Blood Cell 7.5 10^3/uL (4.4-10.8)
[2019-04-14 13:16] LABS: INR < 0.93 (0.9-1.15); Partial Thromboplastin Time 28.5 sec (23.64-32.05)
[2019-04-14 13:40] LABS: Albumin 3.1 g/dL (3.4-5.0); BUN/Creatinine Ratio 21.4; Calcium 9.4 mg/dL (8.5-10.1); Potassium 4.8 mmol/L (3.5-5.1)
[2019-04-14 13:42] LABS: Bilirubin, Total 0.2 mg/dL (0.2-1.0); Total Protein 7.3 g/dL (6.4-8.2)
[~2019-04-15] VITALS: Ht 165.1 cm; Wt 88.0 kg
[~2019-04-15 09:21] MED LIST changes: -ALBUAER3 IN; +BETH50TA2 PO; +BUSP10TA90 PO; -CAR3125T OR; +CITA-73 PO; +FLUT100I IN; +INSLISPI SC; -MEC25T PO; -MET10LQ PO; +MIDO5TAB22 PO; -PIOG45TA8 PO; +PRA25T PO; -PREG50CA PO; +RAMI5CAP40 PO; +RANI-226 PO; +SITA100T7 PO; +SODI650T PO
[2019-04-15] MEDS ORDERED: ceFAZolin 1GM/50ML 50 ML IV ONE (12:20)
[2019-04-15] MEDS ORDERED: ROPIVACAINE 0.5% (5MG/ML) 20ML AMPULE IJ ONE (13:27)
[2019-04-15] MEDS ORDERED: ETOMIDATE (2MG/ML) 20ML VIAL IV ONE (13:45)
[2019-04-15] MEDS ORDERED: PHENYLEPHRINE HCL 10 MG/ML VL IV ONE (13:45)
[2019-04-15] MEDS ORDERED: MIDAZOLAM HCL 1MG/1ML-2 ML VIAL ONE (13:53)
[2019-04-15] MEDS ORDERED: MEPERIDINE HCL (50 MG/ML) 1 ML VIAL ONE (13:53)
[2019-04-15] MEDS ORDERED: fentaNYL CITRATE 100 MCG/2 ML VL ONE (13:53)
[2019-04-15] MEDS ORDERED: PROPOFOL 10 MG/ML 20 ML IV ONE (14:22)
[2019-04-15] MEDS ORDERED: KETOROLAC TROMETH 30 MG/ML 1ML VIAL ONE (14:22)
[2019-04-15] MEDS ORDERED: ACCU-CHEK COMFORT CURVE STRIP VI ONE (14:30)
[2019-04-15] MEDS ORDERED: ONDANSETRON HCL 4 MG/2 ML VIAL IV PRN (14:30)
[2019-04-15] MEDS ORDERED: MIDAZOLAM HCL 1MG/1ML-2 ML VIAL IV PRN (14:30)
[2019-04-15] MEDS ORDERED: LABETALOL HCL 5 MG/ML 4ML SYRINGE IV PRN (14:30)
[2019-04-15] MEDS ORDERED: ePHEDrine SULFATE 50 MG/ML AMP IV PRN (14:30)
[2019-04-15] MEDS ORDERED: MORPHINE SULFATE 4 MG/ML SYR/VIAL IV PRN (14:30)
[2019-04-15] MEDS ORDERED: HYDROmorphone HCL 2 MG/ML VL IV PRN (14:30)
[2019-04-15 16:20] VITALS: BP 148/84
== END 2019-04-15 16:30 | disposition home or self-care (01) ==
LOC: SUR 09:21
PROVIDERS: ATTEND Podiatrist Foot & Ankle Surgery
DX: S82.842A Displaced bimalleolar fracture of left lower leg, initial encounter for closed fracture (principal); M85.872 Other specified disorders of bone density and structure, left ankle and foot; E11.9 Type 2 diabetes mellitus without complications; I10 Essential (primary) hypertension; J44.9 Chronic obstructive pulmonary disease, unspecified; K21.9 Gastro-esophageal reflux disease without esophagitis; E66.9 Obesity, unspecified; Z68.32 Body mass index [BMI] 32.0-32.9, adult; Z44.9 Encounter for fitting and adjustment of unspecified external prosthetic device; Z98.51 Tubal ligation status; Z90.710 Acquired absence of both cervix and uterus; Z98.890 Other specified postprocedural states; Z87.59 Personal history of other complications of pregnancy, childbirth and the puerperium; Z79.4 Long term (current) use of insulin; Z88.8 Allergy status to other drugs, medicaments and biological substances; X58.XXXA Exposure to other specified factors, initial encounter; Y93.89 Activity, other specified; Y92.89 Other specified places as the place of occurrence of the external cause; Y99.8 Other external cause status
CPT/HCPCS: 27814; 36415; 73600; 80053; 81001; 82962; 85025; 85610; 85730; 88304; 88311; 93005; C1713; J0690; J1170; J1885; J2175; J2250; J2370; J2704; J2795; J3010

== ENCOUNTER 2019-04-27 13:26 | Inpatient (IN) | payer MEDICARE, BC ==
[~2019-04-27] VITALS: Ht 165.1 cm; Wt 90.9 kg
[2019-04-27] MEDS ORDERED: NITROGLYCERIN 0.4 MG SL TAB SL PRN (14:30)
[2019-04-27] MEDS ORDERED: DEXTROSE (50%) 50ML SYRG IV PRN (14:30)
[2019-04-27] MEDS ORDERED: MORPHINE SULF INJ 2 MG/ML SYRINGE 1ML IV PRN (14:30)
[2019-04-27 14:45] VITALS: BP 123/84
--- NOTE | 2019-04-27 14:45 | NUR ---
Telemetry admit from [facility] admitted to Telemetry unit after SBAR received. Patient oriented to Beatrice Kern, primary RN, unit, room, bed, and unit policies regarding patient care and visiting hours. Patient weighed by bedscale and encouraged to call if they need something. All questions and concerns addressed, patient verbalized understanding.
[2019-04-27] MEDS: ONDANSETRON HCL 4 MG/2 ML VIAL IV PRN ×2 (15:30→23:53)
[2019-04-27] MEDS: SODIUM CHLORIDE 0.9% 1,000 ML IV SCH (15:30)
--- NOTE | 2019-04-27 15:45 | NUR ---
Pt placed of tele monitor, tele 34, sinus rhythm at 95 bpm. MRSA swab sent to lab.
[2019-04-27 15:47] LABS: Basophils # (auto) 0.1 uL; Eosinophils # (auto) 0.1 uL; Mean Corpuscular Hemoglobin 28.3 pg (28.0-32.0); Monocytes # (auto) 0.7 uL; Red Cell Distribution Width 15.6 % (11.8-14.3); White Blood Cell 10.1 10^3/uL (4.4-10.8)
[2019-04-27 15:49] LABS: Basophils % (auto) 0.7 % (0.0-2.0); Eosinophils % (auto) 0.8 % (0.0-7.0); Hematocrit 36.8 % (36.0-46.0); Hemoglobin 12.2 g/dL (12.2-16.2); Lymphocytes # (auto) 1.9 uL; Lymphocytes % (auto) 18.9 % (10.0-50.0); Mean Corpuscular Hgb Conc. 33.1 g/dL (32.0-36.0); Mean Corpuscular Volume 85.5 fL (80.0-100.0); Monocytes % (auto) 7.3 % (0.0-12.0); Neutrophils # (auto) 7.3 uL; Neutrophils % (auto) 72.3 % (37.0-80.0); Platelet Count (auto) 682 10^3/uL (140-450)
[2019-04-27 16:04] LABS: BUN/Creatinine Ratio 15.8; Calcium 10.3 mg/dL (8.5-10.1); Potassium 4.9 mmol/L (3.5-5.1)
[2019-04-27 17:00] VITALS: BP 122/83
[2019-04-27] MEDS: HYDROcodone-ACET 5/325MG TAB PO PRN ×2 (17:06→21:24)
[2019-04-27] MEDS: ACCU-CHEK COMFORT CURVE STRIP VI SCH (17:07)
[2019-04-27] MEDS: InsuLIN REG 1unit/0.01ml Soln (100units/ml) SC SCH (17:12)
--- NOTE | 2019-04-27 17:31 | NUR ---
Dr. Williamson at bed side to see pt, doctor discussed the plan of care with pt and pt's .
[2019-04-27] MEDS: cefTRIAXone 1GM/50ML D5W 50 ML IV SCH (18:46)
--- NOTE | 2019-04-27 19:30 | NUR ---
Opening Shift Note Assumed care of patient, alert and oriented x 4. No S/S of distress/SOB. C/O pain level of 8/10 to LT ankle. ambulatory to bedside commode. On room air. Contact precautions in place. Bed in lowest locked position, side rails up x 2, call light within reach. Instructed on POC and to call for assist PRN, will continue to monitor for changes Q1hr and PRN.
[2019-04-27 20:00] VITALS: BP 134/79
[2019-04-27 20:13] LABS: Urine WBC None Seen /hpf (0 - 5)
[2019-04-27 21:03] LABS: Urine Bacteria NONE SEEN /hpf (None Seen); Urine Blood Negative /uL (Negative); Urine Specific Gravity 1.008 (1.001-1.035)
[2019-04-27 21:48] VITALS: BP 134/79
[2019-04-27] MEDS: CLINDAMYCIN 300MG IV 50 ML IV SCH (21:52)
[2019-04-27] MEDS ORDERED: ENOXAPARIN SOD 40 MG/0.4 ML SYRINGE SC SCH (22:00)
[2019-04-28] MEDS: ACCU-CHEK COMFORT CURVE STRIP VI SCH ×5 (00:01→23:46)
[2019-04-28] MEDS: SODIUM CHLORIDE 0.9% 1,000 ML IV SCH ×3 (00:30→23:46)
[2019-04-28] MEDS: HYDROcodone-ACET 5/325MG TAB PO PRN ×2 (01:32→05:40)
[2019-04-28 04:49] VITALS: BP 181/83
--- NOTE | 2019-04-28 05:10 | NUR ---
LEFT MESSAGE WITH STAFFING ASSISTANT ANSWERING SERVICE FOR DR. FUENTES. NOTIFIED OF ELEVATED BLOOD PRESSURE OF 181/83. AWAITING CALL BACK. PATIENT A&OX4, NO S/S OF ACUTE DISTRESS NOTED.
[2019-04-28 05:12] LABS: Basophils # (auto) 0.1 uL; Eosinophils # (auto) 0 uL; Eosinophils % (auto) 0.5 % (0.0-7.0); Hematocrit 34.9 % (36.0-46.0); Hemoglobin 11.6 g/dL (12.2-16.2); Lymphocytes # (auto) 0.9 uL; Lymphocytes % (auto) 10.5 % (10.0-50.0); Mean Corpuscular Hemoglobin 28.3 pg (28.0-32.0); Mean Corpuscular Hgb Conc. 33.3 g/dL (32.0-36.0); Mean Corpuscular Volume 85.1 fL (80.0-100.0); Monocytes # (auto) 0.6 uL; Monocytes % (auto) 6.1 % (0.0-12.0); Neutrophils # (auto) 7.4 uL; Neutrophils % (auto) 81.9 % (37.0-80.0); Platelet Count (auto) 572 10^3/uL (140-450); Red Blood Cells 4.11 10^6/uL (4.0-5.20); Red Cell Distribution Width 15.7 % (11.8-14.3)
[2019-04-28 05:32] LABS: Calcium 9.5 mg/dL (8.5-10.1)
[2019-04-28 05:35] LABS: Albumin 3.3 g/dL (3.4-5.0); BUN/Creatinine Ratio 17.9
--- NOTE | 2019-04-28 05:35 | NUR ---
RECEIVED CALL BACK FROM DR. FUENTES. AWARE OF PATIENTS ELEVATED BLOOD PRESSURE AND PAIN 10/10 TO RIGHT FLANK. ORDERED TO MONITOR BLOOD PRESSURE AND RECEIVED ORDER FOR DILAUDED 0.5 MG IV Q4HR PRN. RBO AND VERIFIED. WILL CARRY OUT AND CONTINUE CARE.
[2019-04-28 05:38] LABS: Bilirubin, Total 0.2 mg/dL (0.2-1.0); Total Protein 7.6 g/dL (6.4-8.2)
[2019-04-28] MEDS: CLINDAMYCIN 300MG IV 50 ML IV SCH ×3 (05:39→21:34)
[2019-04-28] MEDS: InsuLIN REG 1unit/0.01ml Soln (100units/ml) SC SCH ×5 (05:40→23:46)
[2019-04-28] MEDS: HYDROmorphone HCL 2 MG/ML VL IV PRN ×5 (05:50→22:46)
[2019-04-28] MEDS: ONDANSETRON HCL 4 MG/2 ML VIAL IV PRN (06:30)
--- NOTE | 2019-04-28 07:01 | NUR ---
ENDORSED CARE TO DAYSHIFT TAJ CORBETT.
--- NOTE | 2019-04-28 08:00 | NUR ---
Opening Shift Note Assumed care of patient, awake and alert X4. No S/S of distress/SOB or pain. InsTructed on POC and to call for assist PRN, will continue to monitor for changes Q1hr and PRN.
[2019-04-28] MEDS: PANTOPRAZOLE 40 MG TAB PO SCH (08:59)
[2019-04-28 09:00] VITALS: BP 155/76
[2019-04-28] MEDS: cefTRIAXone 1GM/50ML D5W 50 ML IV SCH (09:00)
[2019-04-28] MEDS: ENOXAPARIN SOD 40 MG/0.4 ML SYRINGE SC SCH (09:00)
--- NOTE | 2019-04-28 09:22 | NUR ---
CARLOS AMANDA REGARDING DRESSING CHANGE. STATED OK TO CHANGE DRESSING.
--- NOTE | 2019-04-28 10:00 | NUR ---
Brodie GINA AT BEDSIDE. UPDATED ON PATIENT STATUS. NO NEW ORDERS RECEIVED. WILL CONTINUE CARE
[2019-04-28 13:00] VITALS: BP 146/76
--- NOTE | 2019-04-28 15:36 | NUR ---
Assessment Pt is a 58 yr old alert and oriented female. Prior to admit, pt went to primary Dr. Williamson with complaints of right kidney pain and left-sided face pain. Dr. Williamson instructed her to go to the hospital. Pt is living with her , Tyrone, who is her emergency contact at [phone]. Prior to admit, pt used an electric scooter to ambulate. Pt and her are able to cook and clean between the 2 of them and was independent with ADLs. Pt stated that her and daughter have been helpful and have helped to take care of her. 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 Pt expressed that due to this condition, she is worried about falling again at home when no one is around. Pts is retired and is often home but pt stated that her primary doctor recommended that she gets a manual w/c and sits in it when she doesnt have family members around to prevent future falls. GUTIERREZ asked the pt if she would feel safe to go home if she had a w/c for extra support. Pt agreed. GUTIERREZ talked with pts nurse to notify them of the need for a w/c for safety precautions in the home. Pt has no current interest in AD. No other needs or concerns expressed at this time. Addendum: 04/28/19 at 1536 by NAYA CAST Amended: Links added.
--- NOTE | 2019-04-28 16:00 | NUR ---
DRESSING TO LEFT ANKLE CHANGED. NOTED SEROSANGUINEOUS DRAINAGE ON BOTH INCISIONS. INTERIOR INCISION REDDENED WITH SMALL AMOUNT OF SEROUS DRAINAGE. CLEANED WITH WOUND CLEANSER AND WRAPPED WITH KERLIX. SPLINT PUT BACK IN PLACE. PATIENT TOLERATED WELL.
--- NOTE | 2019-04-28 19:00 | NUR ---
ENDORSED CARE TO TAJ BAEZ. ALL QUESTIONS ANSWERED. FALL PRECAUTIONS IN PLACE. PATIENT IN NO S/S OF DISTRESS AT THIS TIME.
--- NOTE | 2019-04-28 19:45 | NUR ---
OPENING SHIFT NOTE ASSUMED CARE OF PATIENT, A&OX4. ON ROOM AIR AND AMBULATORY TO BEDSIDE COMMODE. NO S/S OF ACUTE DISTRESS OR SOB. NO PAIN. ON CONTACT ISOLATION PRECAUTIONS. BED IN LOWEST LOCKED POSITION, SIDE RAILS UP X 2, CALL LIGHT WITHIN REACH. INSTRUCTED ON POC AND TO CALL FOR ASSIST PRN. WILL CONTINUE TO MONITOR EVERY HOUR AND NEEDED.
[2019-04-28 20:00] VITALS: BP 111/62
[2019-04-28 22:01] VITALS: BP 111/62
[2019-04-29] MEDS: ONDANSETRON HCL 4 MG/2 ML VIAL IV PRN ×2 (01:11→07:30)
[2019-04-29] MEDS: HYDROmorphone HCL 2 MG/ML VL IV PRN ×5 (03:00→20:08)
[2019-04-29 05:00] VITALS: BP 169/98
[2019-04-29] MEDS: ACCU-CHEK COMFORT CURVE STRIP VI SCH ×3 (05:30→17:59)
[2019-04-29] MEDS: CLINDAMYCIN 300MG IV 50 ML IV SCH ×3 (05:30→22:10)
[2019-04-29] MEDS: InsuLIN REG 1unit/0.01ml Soln (100units/ml) SC SCH ×3 (05:31→18:00)
[2019-04-29] MEDS: SODIUM CHLORIDE 0.9% 1,000 ML IV SCH ×2 (05:32→17:03)
[2019-04-29 06:15] LABS: Eosinophils # (auto) 0.1 uL; Lymphocytes # (auto) 0.8 uL; Monocytes # (auto) 0.5 uL; Red Cell Distribution Width 15.3 % (11.8-14.3)
[2019-04-29 06:18] LABS: Basophils # (auto) 0.1 uL; Basophils % (auto) 0.6 % (0.0-2.0); Eosinophils % (auto) 0.6 % (0.0-7.0); Hematocrit 35.6 % (36.0-46.0); Hemoglobin 11.7 g/dL (12.2-16.2); Lymphocytes % (auto) 9.4 % (10.0-50.0); Mean Corpuscular Hemoglobin 27.9 pg (28.0-32.0); Mean Corpuscular Hgb Conc. 32.9 g/dL (32.0-36.0); Mean Corpuscular Volume 84.7 fL (80.0-100.0); Monocytes % (auto) 5.9 % (0.0-12.0); Neutrophils # (auto) 7.5 uL; Neutrophils % (auto) 83.5 % (37.0-80.0); Platelet Count (auto) 576 10^3/uL (140-450); Red Blood Cells 4.21 10^6/uL (4.0-5.20)
[2019-04-29 06:30] LABS: Albumin 3.1 g/dL (3.4-5.0); Calcium 9.3 mg/dL (8.5-10.1); Potassium 3.9 mmol/L (3.5-5.1)
[2019-04-29 06:32] LABS: BUN/Creatinine Ratio 16.9
[2019-04-29 06:35] LABS: Bilirubin, Total 0.3 mg/dL (0.2-1.0); Total Protein 7.7 g/dL (6.4-8.2)
--- NOTE | 2019-04-29 07:30 | NUR ---
Opening Shift Note Assumed care of patient, awake and alert X4. No S/S of distress/SOB. Patient reports pain at a 10/10 to Right lower back area. Instructed on POC and to call for assist PRN, will continue to monitor for changes Q1hr and PRN.
[2019-04-29 09:00] VITALS: BP 122/67
[2019-04-29] MEDS: PANTOPRAZOLE 40 MG TAB PO SCH (09:05)
[2019-04-29] MEDS: ENOXAPARIN SOD 40 MG/0.4 ML SYRINGE SC SCH (09:05)
[2019-04-29] MEDS: cefTRIAXone 1GM/50ML D5W 50 ML IV SCH (09:05)
--- NOTE | 2019-04-29 10:00 | NUR ---
Brodie GINA AT BEDSIDE. RECEIVED NEW ORDERS. WILL FOLLOW THROUGH.
[2019-04-29 13:05] VITALS: BP 106/79
[2019-04-29 17:28] VITALS: BP 109/66
--- NOTE | 2019-04-29 19:45 | NUR ---
Opening Shift Note Assumed care of patient, awake and alert oriented x4. No S/S of distress/SOB noted. Bed is in lowest locked position with bed rails up x2 and call light is within reach of the patient. Instructed on POC and to call for assist PRN.
[2019-04-29 22:00] VITALS: BP 137/72
[2019-04-30] MEDS: ACCU-CHEK COMFORT CURVE STRIP VI SCH ×3 (00:10→11:58)
[2019-04-30] MEDS: HYDROmorphone HCL 2 MG/ML VL IV PRN ×3 (00:10→08:40)
[2019-04-30] MEDS: InsuLIN REG 1unit/0.01ml Soln (100units/ml) SC SCH ×3 (00:19→11:58)
[2019-04-30] MEDS: SODIUM CHLORIDE 0.9% 1,000 ML IV SCH ×2 (00:20→12:30)
[2019-04-30 05:00] VITALS: BP 152/88
[2019-04-30] MEDS: CLINDAMYCIN 300MG IV 50 ML IV SCH (05:33)
[2019-04-30 06:04] LABS: Basophils # (auto) 0 uL; Basophils % (auto) 0.7 % (0.0-2.0); Eosinophils # (auto) 0.1 uL; Eosinophils % (auto) 1.6 % (0.0-7.0); Hematocrit 33.7 % (36.0-46.0); Lymphocytes # (auto) 1.2 uL; Lymphocytes % (auto) 19.9 % (10.0-50.0); Mean Corpuscular Hemoglobin 28.2 pg (28.0-32.0); Mean Corpuscular Hgb Conc. 32.6 g/dL (32.0-36.0); Mean Corpuscular Volume 86.5 fL (80.0-100.0); Monocytes # (auto) 0.6 uL; Monocytes % (auto) 10.1 % (0.0-12.0); Neutrophils # (auto) 4.1 uL; Neutrophils % (auto) 67.7 % (37.0-80.0); Nucleated Red Blood Cells % 0.1 %; Platelet Count (auto) 502 10^3/uL (140-450); Red Cell Distribution Width 15.7 % (11.8-14.3)
[2019-04-30 06:26] LABS: Potassium 4.5 mmol/L (3.5-5.1)
[2019-04-30 06:32] LABS: BUN/Creatinine Ratio 20.8; Bilirubin, Total 0.2 mg/dL (0.2-1.0); Calcium 9.3 mg/dL (8.5-10.1)
[2019-04-30 09:00] VITALS: BP 168/96
[2019-04-30] MEDS: cefTRIAXone 1GM/50ML D5W 50 ML IV SCH (09:00)
[2019-04-30] MEDS: PANTOPRAZOLE 40 MG TAB PO SCH (11:57)
[2019-04-30] MEDS: ENOXAPARIN SOD 40 MG/0.4 ML SYRINGE SC SCH (11:58)
[2019-04-30 13:00] VITALS: BP 166/95
--- NOTE | 2019-04-30 14:30 | NUR ---
D/C Planning Per SS consult for wheelchair due to non weight bearing. I was unable to complete order for wheelchair due to Pt leaving and signing AMA for wheelchair.
[2019-05-26] MEDS ORDERED: ALBUAER3 IN (14:52)
== END 2019-04-30 14:00 | disposition home or self-care (01) | DRG 638 ==
LOC: TELE-CENTR 14:02
PROVIDERS: ADMIT Internal Medicine; ATTEND Internal Medicine
DX: E11.65 Type 2 diabetes mellitus with hyperglycemia (principal); E44.0 Moderate protein-calorie malnutrition; J01.90 Acute sinusitis, unspecified; F32.9 Major depressive disorder, single episode, unspecified; E88.09 Other disorders of plasma-protein metabolism, not elsewhere classified; J45.909 Unspecified asthma, uncomplicated; K29.70 Gastritis, unspecified, without bleeding; I10 Essential (primary) hypertension; G90.8 Other disorders of autonomic nervous system; K21.9 Gastro-esophageal reflux disease without esophagitis; Z87.440 Personal history of urinary (tract) infections; Z87.11 Personal history of peptic ulcer disease; Z90.710 Acquired absence of both cervix and uterus; Z90.49 Acquired absence of other specified parts of digestive tract; Z88.6 Allergy status to analgesic agent; Z79.899 Other long term (current) drug therapy; Z68.33 Body mass index [BMI] 33.0-33.9, adult
CPT/HCPCS: 36415; 76775; 80048; 80053; 81001; 82962; 85025; 87040; 87081; 87086; 87205; G0378; J0696; J1815; J2405; J3490

== ENCOUNTER 2019-05-27 10:50 | Inpatient (IN) | payer MEDICARE, OTHER ==
[2019-05-26 15:43] LABS: Eosinophils # (auto) 0.1 uL; Lymphocytes # (auto) 2.2 uL; Neutrophils # (auto) 5.2 uL; Nucleated Red Blood Cells % 0.1 %; Red Cell Distribution Width 16.8 % (11.8-14.3)
[2019-05-26 15:47] LABS: Basophils # (auto) 0 uL; Basophils % (auto) 0.5 % (0.0-2.0); Eosinophils % (auto) 1.7 % (0.0-7.0); Hematocrit 32.9 % (36.0-46.0); Hemoglobin 10.7 g/dL (12.2-16.2); Lymphocytes % (auto) 27.5 % (10.0-50.0); Mean Corpuscular Hemoglobin 28.5 pg (28.0-32.0); Mean Corpuscular Hgb Conc. 32.6 g/dL (32.0-36.0); Mean Corpuscular Volume 87.3 fL (80.0-100.0); Monocytes # (auto) 0.5 uL; Monocytes % (auto) 5.9 % (0.0-12.0); Neutrophils % (auto) 64.4 % (37.0-80.0); Platelet Count (auto) 533 10^3/uL (140-450); Red Blood Cells 3.76 10^6/uL (4.0-5.20); White Blood Cell 8.1 10^3/uL (4.4-10.8)
[2019-05-26 15:56] LABS: INR < 0.93 (0.9-1.15); Partial Thromboplastin Time 28.3 sec (23.64-32.05)
[2019-05-26 16:14] LABS: Urine Bacteria NONE SEEN /hpf (None Seen); Urine Blood Negative /uL (Negative); Urine WBC 3 /hpf (0 - 5)
[2019-05-26 16:17] LABS: Albumin 3.3 g/dL (3.4-5.0); BUN/Creatinine Ratio 18.7; Bilirubin, Total 0.2 mg/dL (0.2-1.0); Calcium 9.6 mg/dL (8.5-10.1); Potassium 4.4 mmol/L (3.5-5.1); Total Protein 7.7 g/dL (6.4-8.2)
[~2019-05-27] VITALS: Ht 165.1 cm; Wt 87.6 kg
[~2019-05-27 10:50] MED LIST changes: +ALBUAER3 IN
[2019-05-27] MEDS ORDERED: ceFAZolin 1GM VL ONE ×2 (13:18→13:50)
[2019-05-27] MEDS ORDERED: MIDAZOLAM HCL 1MG/1ML-2 ML VIAL ONE (13:37)
[2019-05-27] MEDS ORDERED: fentaNYL CITRATE 100 MCG/2 ML VL ONE ×2 (13:37→14:29)
[2019-05-27] MEDS ORDERED: PROPOFOL 10 MG/ML 20 ML IV ONE (13:38)
[2019-05-27] MEDS ORDERED: ePHEDrine SULFATE 50 MG/ML AMP IV PRN (14:00)
[2019-05-27] MEDS ORDERED: ONDANSETRON HCL 4 MG/2 ML VIAL IV PRN ×2 (14:00→14:15)
[2019-05-27] MEDS ORDERED: fentaNYL CITRATE 100 MCG/2 ML VL IV PRN (14:00)
[2019-05-27] MEDS ORDERED: hydrALAZINE HCL 20 MG/ML VL IV PRN (14:00)
[2019-05-27] MEDS ORDERED: VANCOMYCIN PER PHARMACY 0 MG IV SCH (14:15)
[2019-05-27] MEDS ORDERED: DEXTROSE (50%) 50ML SYRG IV PRN (14:15)
--- NOTE | 2019-05-27 15:45 | NUR ---
PATIENT ARRIVED FROM RECOVERY ROOM VIA HOSPITAL BED, ALERT ORIENTED X4, NO DISTRESS NOTED, HEAD OF BED ELEVATED, PT HAS SOFT SPLINT AT THE LEFT LOWER LEG, PATIENT TOES WARM TO TOUCH, POSITIVE DORSALIS PULSES, LEFT HAND 22 G WITH LR INFUSION,ROOM ORIENTATION GIVEN TO PT, ON A PRIVATE ROOM FOR HISTORY OF MRSA, IN CONTACT ISOLATION, REMAIN AT BED SIDE AT ALL TIMES.
[2019-05-27] MEDS: InsuLIN REG 1unit/0.01ml Soln (100units/ml) SC SCH ×2 (17:00→22:00)
[2019-05-27] MEDS: MORPHINE SULF INJ 2 MG/ML SYRINGE 1ML IV PRN ×2 (17:50→22:51)
[2019-05-27] MEDS: ACCU-CHEK COMFORT CURVE STRIP VI SCH ×2 (17:57→22:56)
[2019-05-27] MEDS: SUCRALFATE 1 GM TAB PO SCH ×2 (17:57→22:50)
[2019-05-27 17:58] VITALS: BP 134/79
[2019-05-27] MEDS: MIDODRINE HCL 10 MG TAB PO SCH (17:58)
[2019-05-27] MEDS: VANCOMYCIN 750mg/250ml 250 ML IV SCH (18:21)
--- NOTE | 2019-05-27 18:35 | NUR ---
PT CONTINUE STABLE, CONTINUE MONITORING
--- NOTE | 2019-05-27 19:15 | NUR ---
Opening Shift Note Report received from day shift RN. Assumed care of patient. Patient sitting in bed awake and A&O x4. No S/S of distress/SOB noted. Patient states having pain to left foot 5/10 on numerical scale. Will medicate as ordered. Patient's left foot wrapped in bandages and supported with a soft splint. The left foot is warm to the touch, pulses palpable, and has appropriate sensation. Fall risk precautions continued. Bed locked left in the lowest position with side rails up x2. Call light left within reach. Instructed on POC and to call for assist PRN, will continue to monitor for changes Q1hr and PRN.
[2019-05-27 21:34] VITALS: BP 129/70
[2019-05-27] MEDS: PRAMIPEXOLE DIHYDROCHLORIDE MO 0.25 MG TAB PO SCH (22:50)
[2019-05-27] MEDS: busPIRone HCL 10 MG TAB PO SCH (22:50)
[2019-05-28] MEDS: VANCOMYCIN 750mg/250ml 250 ML IV SCH ×2 (05:30→18:06)
[2019-05-28] MEDS: MORPHINE SULF INJ 2 MG/ML SYRINGE 1ML IV PRN ×5 (05:31→22:35)
[2019-05-28] MEDS: MIDODRINE HCL 10 MG TAB PO SCH ×3 (05:32→18:06)
[2019-05-28 05:37] VITALS: BP 110/56
[2019-05-28 06:22] LABS: Basophils # (auto) 0 uL; Basophils % (auto) 0.6 % (0.0-2.0); Eosinophils # (auto) 0.2 uL; Hematocrit 33.5 % (36.0-46.0); Hemoglobin 10.9 g/dL (12.2-16.2); Lymphocytes # (auto) 1.1 uL; Lymphocytes % (auto) 20.2 % (10.0-50.0); Mean Corpuscular Hemoglobin 28.4 pg (28.0-32.0); Mean Corpuscular Hgb Conc. 32.4 g/dL (32.0-36.0); Mean Corpuscular Volume 87.5 fL (80.0-100.0); Monocytes # (auto) 0.5 uL; Monocytes % (auto) 8.8 % (0.0-12.0); Neutrophils # (auto) 3.7 uL; Neutrophils % (auto) 67.4 % (37.0-80.0); Platelet Count (auto) 492 10^3/uL (140-450); Red Blood Cells 3.83 10^6/uL (4.0-5.20); Red Cell Distribution Width 16.7 % (11.8-14.3); White Blood Cell 5.5 10^3/uL (4.4-10.8)
[2019-05-28] MEDS: InsuLIN REG 1unit/0.01ml Soln (100units/ml) SC SCH ×4 (06:37→22:00)
[2019-05-28] MEDS: ACCU-CHEK COMFORT CURVE STRIP VI SCH ×4 (06:37→21:55)
[2019-05-28 06:41] LABS: BUN/Creatinine Ratio 11.7; Calcium 9.4 mg/dL (8.5-10.1); Potassium 4.3 mmol/L (3.5-5.1)
[2019-05-28] MEDS: SUCRALFATE 1 GM TAB PO SCH ×4 (06:41→21:55)
--- NOTE | 2019-05-28 08:00 | NUR ---
ASSESSMENT NOTE PATIENT CONTINUE TO BE ALERT ORIENTED X4, SELF REPOSITION NEEDED, LEFT LEG CONTINUE ON SOFT SPLINT, PAIN MANAGEMENT NEEDED, NO DISTRESS NOTED, IN CONTACT ISOLATION FOR HISTORY FOR MRSA, CALL LIGHT WITHIN REACH
[2019-05-28 09:00] VITALS: BP 125/80
[2019-05-28] MEDS: busPIRone HCL 10 MG TAB PO SCH ×2 (09:15→21:54)
[2019-05-28] MEDS: RAMIPRIL 2.5 MG CAP PO SCH (09:15)
[2019-05-28] MEDS: FAMOTIDINE 20 MG TAB PO SCH (09:16)
[2019-05-28] MEDS: CITALOPRAM HYDROBR 20 MG TAB PO SCH (09:16)
[2019-05-28] MEDS: ASPirin 81 mg TAB PO SCH (09:52)
--- NOTE | 2019-05-28 10:30 | NUR ---
WOUND CARE NOTE: IN TO SEE PATIENT AT THIS TIME PER WOUND CARE CONSULT REQUEST FOR WOUND VAC PLACEMENT. PATIENT IS S/P DEBRIDEMENT OF INFECTED WOUND AND DEVITALIZED TISSUE/WOUND DEHISCENCE LEFT MEDIAL ANKLE, PERFORMED BY DR. AMANDA ON 05/27/19. PATIENT HAS CURRENT MARSHALL SCORE OF 18. SKIN/WOUND CARE PLAN HAS BEEN IMPLEMENTED. WOUND VAC PLACEMENT ORDERED BY DR. AMANDA, TO BE DONE THIS AM. PATIENT HAS BEEN PREMEDICATED FOR PAIN BY BEDSIDE NURSE. PATIENT IS CURRENTLY IN NO PAIN/DISCOMFORT. POST SURGICAL DRESSING REMOVED. THERE IS LIGHT AMOUNTS OF SEROSANGUINEOUS DRAINAGE NOTED ON OLD DRESSING. WOUND MEASURES 4.2 X 3 X 1 CM. NO UNDERMINING OR TUNNELLING NOTED. WOUND BED IS RED, PERIWOUND IS PINK. LIGHT SEROSANGUINOUS DRAINAGE NOTED. MILD EDEMA NOTED TO PERIWOUND. CLEANSED WOUND WITH NS, PATTED DRY WITH STERILE GAUZE. APPLIED CAVILON NO STING BARRIER FILM TO PERIWOUND, PLACED CLEAR DRAPE TO PERIWOUND AND BRIDGE SKIN FOR PROTECTION. APPLIED BLACK GRANUFOAM INTO OPEN WOUND BED AND UP ALONG SKIN/CALF TO MEDIAL LOWER THIGH. COVERED ALL WITH STERILE DRAPE. APPLIED TRAC PAD, ATTACHED TO WOUND VAC. VAC TURNED ON, SET TO 125 MM/HG CONTINUOUS. GOOD SUCTION, NO LEAKS DETECTED. APPLIED POST SURGICAL BRACE TO LEG/FOOT, SECURED WITH 4 INCH PHILIP WRAP. TRAC PAD IS PLACED ABOVE BRACE/PHILIP WRAP SO NOT TO CAUSE ANY PRESSURE INJURIES. PATIENT TOLERATED DRESSING CHANGE WELL, NOTING NO PAIN BY PATIENT. RECOMMEND: Q 3 DAY WOUND VAC DRESSING CHANGE PER MD ORDER, SKIN/WOUND CARE PLAN, DIETARY CONSULT. HOSPITALIST, DR. FUENTES HAS ORDERED WOUND VAC FOR HOME. COMPLETED [employer] THER[employer]Y INSURANCE AUTHORIZATION FORM, PLACED IN CHART FOR FUND DIRECTOR/CASE MANAGEMENT ACTION. WOUND CARE TEAM WILL CONTINUE TO MONITOR. Addendum: 05/28/19 at 1424 by Ainsley Quezada RN Amended: Links added.
[2019-05-28] MEDS: HYDROcodone-ACET 5/325MG TAB PO PRN (10:52)
--- NOTE | 2019-05-28 11:10 | NUR ---
WOUND NURSE RN TYRONE AT BED SIDE WITH WOUND VACUUM PT TOLERATED WELL AT BED SIDE AWARE
--- NOTE | 2019-05-28 11:45 | NUR ---
PI LINE NURSE AT BED SIDE
--- NOTE | 2019-05-28 12:06 | NUR ---
NUTRITION CONSULT/ASSESSMENT NOTES Please refer to link notes of nutrition screen form filed under the intervention section of the plan of care for further details. Est. Needs: 1700 kcal to 2100 kcal (20-25 kcal/kgBW), 67 gms to 84 gms pro (0.8-1.0 gms/kgBW). Will continue to monitor pertinent labs and reassess nutrient need prn Thank you for this consult. Addendum: 05/28/19 at [address] Amended: Links added.
[2019-05-28 13:00] VITALS: BP 106/62
--- NOTE | 2019-05-28 13:00 | NUR ---
DR VILLALOBOS IS HERE FOLLOWING UP ON PT, SAID PT IS CLEAR TO GO HOME TOMORROW
--- NOTE | 2019-05-28 13:06 | NUR ---
PICC line placement Patient/Patient significant other educated on need for PICC line placement. All risks and benefits explained and all questions and concerns addressed prior to procedure. Noted past medical history and allergies with no contraindications. INR and Plt counts within acceptable range. 4 fr PICC line inserted via RIGHT BASILIC vein using [employer] US and Tip Location System. Sterile technique with maximum barrier precautions utilized. Blood return obtained from each of SINGLE lumens and each flushed easily with NS using proper technique. PICC secured with Stat-lock; biodisc and occlusive dressing applied. Stat portable chest x-ray obtained for PICC tip placement. *Baseline Arm Circumference 34CM. *Internal lenght 36cm *External lenght 0cm * PICC lot #[id number]. Note:
[2019-05-28] MEDS ORDERED: LIDOCAINE 1% (LOCAL ANESTH.) PF 5ml SDV ID ONE (13:15)
--- NOTE | 2019-05-28 14:37 | NUR ---
Okay to use PICC line Xray completed. Okay to use PICC line.
[2019-05-28 16:49] VITALS: BP 111/66
--- NOTE | 2019-05-28 17:04 | NUR ---
Discharge planning per SS consult, referral sent to [facility], they have accepted per Arabella. Shane will provided IV ABX upon dc, and wound vac will be sent to [facility] on 05.29.19 for processing.
--- NOTE | 2019-05-28 19:09 | NUR ---
PT IS RESTING COMFORTABLY IN BED, ABLE TO USE BSC NEEDED, ROUNDEDWITH PERINATAL SPECIALIST NURSE AND INTRODUCE , CONTINUE MONITORING
--- NOTE | 2019-05-28 20:10 | NUR ---
RECEIVE IN BED CONTACT ISOLATION LT ANLKE WITH WOUND VAC LEG IS WRAPPED NO VOICED COMPLAINTS
[2019-05-28 21:00] VITALS: BP 147/80
[2019-05-28] MEDS: PRAMIPEXOLE DIHYDROCHLORIDE MO 0.25 MG TAB PO SCH (21:55)
[2019-05-28] MEDS: SODIUM CHLOR 0.9% PF (SALINE LOCK) 10ML VIAL/SYR IV SCH (22:04)
[2019-05-29] MEDS: MORPHINE SULF INJ 2 MG/ML SYRINGE 1ML IV PRN ×5 (04:11→23:15)
[2019-05-29 04:30] VITALS: BP 131/78
[2019-05-29] MEDS: VANCOMYCIN 750mg/250ml 250 ML IV SCH ×2 (05:53→18:34)
[2019-05-29] MEDS: MIDODRINE HCL 10 MG TAB PO SCH ×3 (05:54→18:35)
[2019-05-29 06:29] LABS: Basophils # (auto) 0.1 uL; Eosinophils # (auto) 0.2 uL; Monocytes # (auto) 0.5 uL; Nucleated Red Blood Cells % 0.1 %
[2019-05-29 06:33] LABS: Basophils % (auto) 1.4 % (0.0-2.0); Eosinophils % (auto) 3.8 % (0.0-7.0); Hemoglobin 10.3 g/dL (12.2-16.2); Lymphocytes # (auto) 1.3 uL; Lymphocytes % (auto) 23.9 % (10.0-50.0); Mean Corpuscular Hgb Conc. 33.4 g/dL (32.0-36.0); Mean Corpuscular Volume 86.9 fL (80.0-100.0); Monocytes % (auto) 9.6 % (0.0-12.0); Neutrophils # (auto) 3.3 uL; Neutrophils % (auto) 61.3 % (37.0-80.0); Platelet Count (auto) 442 10^3/uL (140-450); Red Blood Cells 3.57 10^6/uL (4.0-5.20); Red Cell Distribution Width 17.3 % (11.8-14.3); White Blood Cell 5.3 10^3/uL (4.4-10.8)
[2019-05-29 06:38] LABS: Albumin 2.7 g/dL (3.4-5.0); BUN/Creatinine Ratio 20.3; Calcium 9.1 mg/dL (8.5-10.1); Potassium 4.2 mmol/L (3.5-5.1)
[2019-05-29 06:41] LABS: Bilirubin, Total 0.1 mg/dL (0.2-1.0); Total Protein 6.7 g/dL (6.4-8.2)
[2019-05-29] MEDS: SUCRALFATE 1 GM TAB PO SCH ×4 (06:42→23:13)
[2019-05-29] MEDS: InsuLIN REG 1unit/0.01ml Soln (100units/ml) SC SCH ×4 (06:46→23:14)
[2019-05-29] MEDS: ACCU-CHEK COMFORT CURVE STRIP VI SCH ×4 (06:51→23:14)
--- NOTE | 2019-05-29 07:54 | NUR ---
AT THE BEDSIDE DR. FUENTES AT THE BEDSIDE, UPDATING PATIENT ON POC. ALL QUESTIONS AND CONCERNS ADDRESSED AT THIS TIME.
--- NOTE | 2019-05-29 08:15 | NUR ---
Opening Shift Note Assumed care of patient, awake and alert. No S/S of distress/SOB. Patient reports 9/10 pain in her left foot. Will medicate patient for pain per MD order. Instructed on POC and to call for assist PRN, will continue to monitor for changes Q1hr and PRN.
[2019-05-29 08:49] VITALS: BP 139/94
--- NOTE | 2019-05-29 09:45 | NUR ---
WOUND CARE NOTE: IN TO ASSESS FUNCTION OF WOUND VAC DRESSING APPLIED TO LEFT ANKLE AT THIS TIME. VAC IS RUNNING AT 125 MM/HG CONTINUOUS. GOOD SUCTION, NO LEAKS DETECTED AT THIS TIME. WOUND CARE TEAM WILL CONTINUE TO MONITOR.
[2019-05-29] MEDS: FAMOTIDINE 20 MG TAB PO SCH (09:46)
[2019-05-29] MEDS: CITALOPRAM HYDROBR 20 MG TAB PO SCH (09:47)
[2019-05-29] MEDS: busPIRone HCL 10 MG TAB PO SCH ×2 (09:47→23:13)
[2019-05-29] MEDS: RAMIPRIL 2.5 MG CAP PO SCH (09:47)
[2019-05-29] MEDS: ASPirin 81 mg TAB PO SCH (09:47)
--- NOTE | 2019-05-29 09:50 | NUR ---
warp placer Kelsie at bedside with patient.
[2019-05-29] MEDS: SODIUM CHLOR 0.9% PF (SALINE LOCK) 10ML VIAL/SYR IV SCH ×2 (10:04→23:12)
--- NOTE | 2019-05-29 10:22 | NUR ---
[facility] Spoke with Thao from [facility] regarding vancomycin patient will receive at home 1 gram for 4 weeks. Vancomycin order was verified. Thao asked to receive a call when patient discharge date will be known. Call back phone number is .
[2019-05-29 12:52] VITALS: BP 158/85
--- NOTE | 2019-05-29 14:30 | NUR ---
SPOKE WITH NEHEMIAS FROM [facility] REGARDING WOUND VAC. PER NEHEMIAS, WOUND VAC WILL BE DELIVERED TONIGHT AND IS COMING FROM [facility].
--- NOTE | 2019-05-29 14:46 | NUR ---
Pt is an alert and oriented female that has been functioning independently prior to admission. Pt resides with her spouse, Tyrone, who will be able to provide assistance upon discharge. Pt will need home health for IV ABX upon discharge. Pt states she has not been on home health before. Provided pt with list of choice and pt selected [facility]. Pt signed choice letter. Will have hospitality coordinator completion of discharge plan for home health with [facility]. Addendum: 05/29/19 at 1454 by DENNYS GOMEZ SS Amended: Links added.
[2019-05-29 16:58] VITALS: BP 114/68
--- NOTE | 2019-05-29 17:37 | NUR ---
Discharge planning per SS consult. Patient has orders to dc with IV antibiotics, home health and wound vac. Referral sent to [facility] for home health and wound vac care, they have accepted. Please call Ignacio at [phone] prior to discharge to advise so that they can start care for IV meds and wound vac. Please call Shane at [phone] prior to discharge to advise so they can deliver the IV medication. Wound Vac was sent to [facility], placed a follow up call, spoke with Naa and was advised that they will deliver the the wound vac to bedside today. [facility] was advised.
--- NOTE | 2019-05-29 19:00 | NUR ---
CLOSING NOTE Patient is awake and alert. No S/S of distress/SOB or pain. Bed locked in the lowest position. Bed rails up x2. Call light in reach. Endorsed care to night nurse.
[2019-05-29 21:00] VITALS: BP 109/69
[2019-05-29] MEDS: PRAMIPEXOLE DIHYDROCHLORIDE MO 0.25 MG TAB PO SCH (23:13)
[2019-05-30 05:07] VITALS: BP 116/69
[2019-05-30] MEDS: MORPHINE SULF INJ 2 MG/ML SYRINGE 1ML IV PRN ×2 (06:27→11:30)
[2019-05-30] MEDS: MIDODRINE HCL 10 MG TAB PO SCH ×2 (06:28→11:30)
[2019-05-30] MEDS: SUCRALFATE 1 GM TAB PO SCH ×2 (06:28→11:30)
[2019-05-30] MEDS: VANCOMYCIN 750mg/250ml 250 ML IV SCH ×2 (06:28→15:08)
[2019-05-30] MEDS: InsuLIN REG 1unit/0.01ml Soln (100units/ml) SC SCH ×2 (06:29→11:31)
[2019-05-30] MEDS: ACCU-CHEK COMFORT CURVE STRIP VI SCH ×2 (06:29→11:31)
[2019-05-30 06:59] LABS: Calcium 9.4 mg/dL (8.5-10.1); Potassium 4.1 mmol/L (3.5-5.1)
--- NOTE | 2019-05-30 07:50 | NUR ---
Opening Shift Note Assumed care of patient, awake and alert. No S/S of distress/SOB or pain. Instructed on POC and to call for assist PRN, will continue to monitor for changes Q1hr and PRN.
[2019-05-30 08:48] LABS: BUN/Creatinine Ratio 19.4
[2019-05-30 09:00] VITALS: BP 123/73
[2019-05-30] MEDS: busPIRone HCL 10 MG TAB PO SCH (09:50)
[2019-05-30] MEDS: CITALOPRAM HYDROBR 20 MG TAB PO SCH (09:51)
[2019-05-30] MEDS: ASPirin 81 mg TAB PO SCH (09:51)
[2019-05-30] MEDS: FAMOTIDINE 20 MG TAB PO SCH (09:51)
[2019-05-30] MEDS: RAMIPRIL 2.5 MG CAP PO SCH (09:52)
[2019-05-30] MEDS: SODIUM CHLOR 0.9% PF (SALINE LOCK) 10ML VIAL/SYR IV SCH (09:52)
[2019-05-30] MEDS: HYDROcodone-ACET 5/325MG TAB PO PRN (09:58)
[2019-05-30 13:00] VITALS: BP 120/70
--- NOTE | 2019-05-30 15:00 | NUR ---
WOUND CARE NOTE: Patient is being discharged home with home vac. Educated patient with bedside RNMaria T at bedside on use of home vac. Dressing intact to left leg. Good suction maintained at 125mm Hg continuous. All questions answered.
== END 2019-05-30 16:45 | disposition home health service (06) | DRG 856 ==
LOC: SUR 10:50 → EAST 15:59
PROVIDERS: ADMIT Podiatrist Foot & Ankle Surgery; ATTEND Internal Medicine
PROC: 0JBR0ZZ Excision of Left Foot Subcutaneous Tissue and Fascia, Open Approach (ICD-10-PCS; principal; 2019-05-27 13:26)
PROC: 02HV33Z Insertion of Infusion Device into Superior Vena Cava, Percutaneous Approach (ICD-10-PCS; 2019-05-28)
DX: T81.41XA Infection following a procedure, superficial incisional surgical site, initial encounter (principal); E43 Unspecified severe protein-calorie malnutrition; E78.5 Hyperlipidemia, unspecified; F41.9 Anxiety disorder, unspecified; F32.9 Major depressive disorder, single episode, unspecified; J45.909 Unspecified asthma, uncomplicated; K21.9 Gastro-esophageal reflux disease without esophagitis; E11.42 Type 2 diabetes mellitus with diabetic polyneuropathy; G90.8 Other disorders of autonomic nervous system; L08.89 Other specified local infections of the skin and subcutaneous tissue; Y83.8 Other surgical procedures as the cause of abnormal reaction of the patient, or of later complication, without mention of misadventure at the time of the procedure; I10 Essential (primary) hypertension; Z90.710 Acquired absence of both cervix and uterus; Z87.11 Personal history of peptic ulcer disease; Z88.6 Allergy status to analgesic agent; Z86.19 Personal history of other infectious and parasitic diseases; Z87.898 Personal history of other specified conditions; Z87.440 Personal history of urinary (tract) infections; Y92.89 Other specified places as the place of occurrence of the external cause; Z68.32 Body mass index [BMI] 32.0-32.9, adult; Z79.899 Other long term (current) drug therapy
CPT/HCPCS: 36415; 36569; 71045; 80048; 80053; 80202; 81001; 82962; 83036; 85025; 85610; 85730; 87070; 87075; 87077; 87081; 87086; 87088; 87186; 87205; G0378; J0690; J1815; J2250; J2704

== ENCOUNTER → 2019-07-15 | Day surgery (SDC) | payer MEDICARE, BC ==
[2019-07-14 10:25] LABS: Basophils # (auto) 0.1 uL; Basophils % (auto) 1.1 % (0.0-2.0); Eosinophils # (auto) 0.1 uL; Eosinophils % (auto) 2.1 % (0.0-7.0); Hematocrit 35.4 % (36.0-46.0); Hemoglobin 11.2 g/dL (12.2-16.2); Lymphocytes % (auto) 15.5 % (10.0-50.0); Mean Corpuscular Hgb Conc. 31.5 g/dL (32.0-36.0); Mean Corpuscular Volume 85.6 fL (80.0-100.0); Monocytes # (auto) 0.4 uL; Monocytes % (auto) 6.4 % (0.0-12.0); Neutrophils # (auto) 4.8 uL; Neutrophils % (auto) 74.9 % (37.0-80.0); Platelet Count (auto) 321 10^3/uL (140-450); Red Blood Cells 4.13 10^6/uL (4.0-5.20); Red Cell Distribution Width 17.5 % (11.8-14.3); White Blood Cell 6.4 10^3/uL (4.4-10.8)
[2019-07-14 10:40] LABS: INR 0.97 (0.9-1.15); Partial Thromboplastin Time 27.4 sec (23.64-32.05)
[2019-07-14 10:58] LABS: Urine Bacteria NONE SEEN /hpf (None Seen); Urine Blood Negative /uL (Negative); Urine Mucus FEW (None Seen); Urine Specific Gravity 1.023 (1.001-1.035); Urine WBC 1 /hpf (0 - 5)
[2019-07-14 11:27] LABS: Potassium 4.5 mmol/L (3.5-5.1)
[2019-07-14 11:32] LABS: Albumin 3.7 g/dL (3.4-5.0); BUN/Creatinine Ratio 15.1; Bilirubin, Total 0.3 mg/dL (0.2-1.0); Calcium 9.5 mg/dL (8.5-10.1); Total Protein 7.7 g/dL (6.4-8.2)
[~2019-07-15] VITALS: Ht 165.1 cm; Wt 84.8 kg
[~2019-07-15] MED LIST changes: +ACCU-CHEK COMFORT CURVE STRIP VI ONE; +GLYCOPYRROLATE 0.2 MG/ML 1ML VIAL ONE; +HYDROmorphone HCL 2 MG/ML VL IV PRN; +METOCLOPRAMIDE HCL 5MG/ml INJ 2ml VIAL ONE; +MIDAZOLAM HCL 1MG/1ML-2 ML VIAL ONE; +NALOXONE HCL 0.4 MG/ML VIAL IV PRN; +ONDANSETRON HCL 4 MG/2 ML VIAL IV PRN; +PROPOFOL 10 MG/ML 20 ML IV ONE; +ceFAZolin 1GM VL ONE; +ceFAZolin 1GM/50ML 50 ML IV ONE; +diphenhdrAMINE HCL 50 MG/1 ML VL ONE
[2019-07-15] MEDS: HYDROmorphone HCL 2 MG/ML VL IV PRN ×4 (15:26→15:56)
[2019-07-15 16:21] VITALS: BP 157/77
== END | disposition home or self-care (01) ==
LOC: SUR 11:34
PROVIDERS: ATTEND Podiatrist Foot & Ankle Surgery
DX: T81.30XA Disruption of wound, unspecified, initial encounter (principal); K44.9 Diaphragmatic hernia without obstruction or gangrene; D64.9 Anemia, unspecified; E66.9 Obesity, unspecified; J44.9 Chronic obstructive pulmonary disease, unspecified; I25.10 Atherosclerotic heart disease of native coronary artery without angina pectoris; E11.9 Type 2 diabetes mellitus without complications; G40.909 Epilepsy, unspecified, not intractable, without status epilepticus; Z79.01 Long term (current) use of anticoagulants; Z88.8 Allergy status to other drugs, medicaments and biological substances; Z90.49 Acquired absence of other specified parts of digestive tract; Z98.890 Other specified postprocedural states; Z68.32 Body mass index [BMI] 32.0-32.9, adult; Z79.02 Long term (current) use of antithrombotics/antiplatelets; Z79.4 Long term (current) use of insulin; Z79.84 Long term (current) use of oral hypoglycemic drugs; Z79.899 Other long term (current) drug therapy; Z91.048 Other nonmedicinal substance allergy status
CPT/HCPCS: 15271; 36415; 80053; 81001; 82962; 85025; 85610; 85730; 87070; 87075; 87077; 87186; 87205; C1887; C9354; J0690; J1170; J1200; J2250; J2704; J2765

== ENCOUNTER 2020-04-06 06:18 | Day surgery (SDC) | payer MEDICARE, BC ==
[2020-04-01 14:25] LABS: Basophils # (auto) 0.1 10 ^3/uL (0-0.2); Eosinophils # (auto) 0.1 10 ^3/uL (0-0.8); Eosinophils % (auto) 0.8 % (0.0-7.0); Hemoglobin 10.2 g/dL (12.2-16.2); Monocytes # (auto) 0.4 10 ^3/uL (0-1.3); White Blood Cell 7.9 10^3/uL (4.4-10.8)
[2020-04-01 14:27] LABS: Basophils % (auto) 0.9 % (0.0-2.0); Hematocrit 33.2 % (36.0-46.0); Lymphocytes % (auto) 25.6 % (10.0-50.0); Mean Corpuscular Hemoglobin 24.4 pg (28.0-32.0); Mean Corpuscular Hgb Conc. 30.7 g/dL (32.0-36.0); Mean Corpuscular Volume 79.5 fL (80.0-100.0); Monocytes % (auto) 5.7 % (0.0-12.0); Neutrophils # (auto) 5.3 10 ^3/uL (1.6-8.6); Platelet Count (auto) 366 10^3/uL (140-450); Red Blood Cells 4.17 10^6/uL (4.0-5.20); Red Cell Distribution Width 17.5 % (11.8-14.3)
[2020-04-01 14:37] LABS: Urine Bacteria NONE SEEN /hpf (None Seen); Urine Blood Negative /uL (Negative); Urine Specific Gravity 1.033 (1.001-1.035); Urine WBC 1 /hpf (0 - 5)
[2020-04-01 14:45] LABS: INR 0.92 (0.9-1.15); Partial Thromboplastin Time 25.8 sec (23.0-31.2)
[2020-04-01 14:46] LABS: Albumin 3.3 g/dL (3.4-5.0); BUN/Creatinine Ratio 21.7; Calcium 9.3 mg/dL (8.5-10.1); Potassium 4.1 mmol/L (3.5-5.1)
[2020-04-01 14:48] LABS: Bilirubin, Total 0.1 mg/dL (0.2-1.0); Total Protein 7.5 g/dL (6.4-8.2)
[~2020-04-06] VITALS: Ht 165.1 cm; Wt 83.9 kg
[~2020-04-06 06:18] MED LIST changes: -ACCU-CHEK COMFORT CURVE STRIP VI ONE; -GLYCOPYRROLATE 0.2 MG/ML 1ML VIAL ONE; -HYDROmorphone HCL 2 MG/ML VL IV PRN; -INSUINJ37 SUBCUT; +LEVEMIR SC; -METF-370 PO; -METOCLOPRAMIDE HCL 5MG/ml INJ 2ml VIAL ONE; -MIDAZOLAM HCL 1MG/1ML-2 ML VIAL ONE; -NALOXONE HCL 0.4 MG/ML VIAL IV PRN; -ONDANSETRON HCL 4 MG/2 ML VIAL IV PRN; -PRA25T PO; +PRAM0.252 PO; -PROPOFOL 10 MG/ML 20 ML IV ONE; -RAMI5CAP40 PO; -SITA100T7 PO; -ceFAZolin 1GM VL ONE; -ceFAZolin 1GM/50ML 50 ML IV ONE; -diphenhdrAMINE HCL 50 MG/1 ML VL ONE
[2020-04-06] MEDS ORDERED: ceFAZolin 1GM/50ML 50 ML IV ONE (06:36)
[2020-04-06] MEDS ORDERED: LIDOCAINE 1% HCL (LOCAL ANESTH.) INJ 20ML MDV ONE (06:59)
[2020-04-06] MEDS ORDERED: SUCCINYLCHOLINE CHLORIDE 20 MG/ML 10ML VIAL IV ONE (06:59)
[2020-04-06] MEDS ORDERED: SODIUM CHLORIDE LOCK 10 ML ONE (07:04)
[2020-04-06] MEDS ORDERED: PROPOFOL 10 MG/ML 20 ML IV ONE (07:04)
[2020-04-06] MEDS ORDERED: MIDAZOLAM HCL 1MG/1ML-2 ML VIAL ONE (07:04)
[2020-04-06] MEDS ORDERED: fentaNYL CITRATE 100 MCG/2 ML VL ONE (07:04)
[2020-04-06] MEDS ORDERED: ONDANSETRON HCL 4 MG/2 ML VIAL ONE (07:04)
[2020-04-06] MEDS ORDERED: ROPIVACAINE 0.5% (5MG/ML) 20ML AMPULE IJ ONE (07:12)
[2020-04-06] MEDS ORDERED: ceFAZolin 1GM VL ONE (07:12)
[2020-04-06] MEDS ORDERED: HYDROmorphone HCL 2 MG/ML VL IV PRN (07:45)
[2020-04-06] MEDS ORDERED: ACCU-CHEK COMFORT CURVE STRIP VI ONE (07:45)
[2020-04-06] MEDS ORDERED: MORPHINE SULFATE 4 MG/ML SYR/VIAL IV PRN (07:45)
[2020-04-06] MEDS ORDERED: METOCLOPRAMIDE HCL 5MG/ml INJ 2ml VIAL IV PRN (07:45)
[2020-04-06 09:05] VITALS: BP 131/65
== END 2020-04-06 09:05 | disposition home or self-care (01) ==
LOC: SUR 06:18
PROVIDERS: ATTEND Podiatrist Foot & Ankle Surgery
DX: M25.572 Pain in left ankle and joints of left foot (principal); S91.002A Unspecified open wound, left ankle, initial encounter; I10 Essential (primary) hypertension; E11.9 Type 2 diabetes mellitus without complications; I25.10 Atherosclerotic heart disease of native coronary artery without angina pectoris; I25.2 Old myocardial infarction; G40.909 Epilepsy, unspecified, not intractable, without status epilepticus; F32.9 Major depressive disorder, single episode, unspecified; E07.9 Disorder of thyroid, unspecified; J44.9 Chronic obstructive pulmonary disease, unspecified; K21.9 Gastro-esophageal reflux disease without esophagitis; E66.01 Morbid (severe) obesity due to excess calories; I49.8 Other specified cardiac arrhythmias; K44.9 Diaphragmatic hernia without obstruction or gangrene; Z98.890 Other specified postprocedural states; Z88.6 Allergy status to analgesic agent; Z68.30 Body mass index [BMI] 30.0-30.9, adult; Z20.828 Contact with and (suspected) exposure to other viral communicable diseases; X58.XXXA Exposure to other specified factors, initial encounter; Y93.89 Activity, other specified; Y92.89 Other specified places as the place of occurrence of the external cause; Y99.8 Other external cause status
CPT/HCPCS: 15271; 36415; 80053; 81001; 82962; 85025; 85610; 85730; 87070; 87075; 87205; J0330; J0690; J2001; J2250; J2405; J2704; J3010; L3260; Q4126; U0003

== ENCOUNTER → 2020-04-18 | Outpatient (CLI) | payer MEDICARE, BC | END | disposition home or self-care (01) | LOC: XYW 12:54 | PROVIDERS: ATTEND Internal Medicine | DX: R60.0 Localized edema (principal); M79.89 Other specified soft tissue disorders; M79.622 Pain in left upper arm | CPT/HCPCS: 76881 ==

== ENCOUNTER 2020-06-15 10:50 | Emergency (ER) | payer MEDICARE, BC ==
[~2020-06-15] VITALS: Ht 165.1 cm; Wt 80.3 kg
[2020-06-15 14:17] LABS: Basophils # (auto) 0.1 10 ^3/uL (0-0.2); Basophils % (auto) 0.5 % (0.0-2.0); Eosinophils # (auto) 0 10 ^3/uL (0-0.8); Eosinophils % (auto) 0.3 % (0.0-7.0); Mean Corpuscular Volume 76.2 fL (80.0-100.0); Monocytes # (auto) 0.6 10 ^3/uL (0-1.3)
[2020-06-15 14:19] LABS: Hematocrit 35.2 % (36.0-46.0); Hemoglobin 10.9 g/dL (12.2-16.2); Lymphocytes # (auto) 1.9 10 ^3/uL (0.4-5.4); Lymphocytes % (auto) 17.7 % (10.0-50.0); Mean Corpuscular Hemoglobin 23.5 pg (28.0-32.0); Mean Corpuscular Hgb Conc. 30.9 g/dL (32.0-36.0); Monocytes % (auto) 5.6 % (0.0-12.0); Neutrophils # (auto) 8.2 10 ^3/uL (1.6-8.6); Neutrophils % (auto) 75.9 % (37.0-80.0); Platelet Count (auto) 392 10^3/uL (140-450); Red Blood Cells 4.62 10^6/uL (4.0-5.20); Red Cell Distribution Width 16.9 % (11.8-14.3); White Blood Cell 10.8 10^3/uL (4.4-10.8)
[2020-06-15 14:33] LABS: Albumin 3.6 g/dL (3.4-5.0); Anion Gap 11 (5-15); Blood Urea Nitrogen 35 mg/dL (7-18); Calcium 9.4 mg/dL (8.5-10.1); Carbon Dioxide 26 mmol/L (21-32); Chloride 91 mmol/L (98-107); Sodium 128 mmol/L (136-145)
[2020-06-15 14:44] LABS: Alanine Aminotransferase 15 U/L (13-56); Alkaline Phosphatase 119 U/L (45-117); Aspartate Aminotransferase 7 U/L (15-37); BUN/Creatinine Ratio 22.6; Bilirubin, Total 0.4 mg/dL (0.2-1.0); GFR African American 44 mL/min; GFR Non-African American 37 mL/min; Total Protein 8.1 g/dL (6.4-8.2)
[2020-06-15 14:45] LABS: INR 0.97 (0.9-1.15); Partial Thromboplastin Time 25.2 sec (23.0-31.2)
[2020-06-15 15:04] LABS: Potassium 2.8 mmol/L (3.5-5.1)
[2020-06-15 15:05] LABS: Glucose 518 mg/dL (74-106)
[2020-06-15] MEDS ORDERED: SODIUM CHLORIDE 0.9% 2,000 ML IV ONE (15:45)
[2020-06-15] MEDS ORDERED: POTASSIUM EFFERVESENT TAB 25 MEQ PO ONE (16:30)
[2020-06-15] MEDS ORDERED: InsuLIN REG 1unit/0.01ml Soln (100units/ml) IV ONE (16:30)
[2020-06-15 17:00] VITALS: BP 133/73
== END 2020-06-15 18:16 | disposition home or self-care (01) ==
LOC: ER 10:50
DX: J06.9 Acute upper respiratory infection, unspecified (principal); E11.9 Type 2 diabetes mellitus without complications; I10 Essential (primary) hypertension; Z20.828 Contact with and (suspected) exposure to other viral communicable diseases
CPT/HCPCS: 36415; 71045; 80053; 82010; 82962; 84484; 85025; 85610; 85730; 87426; 93005; 96361; 96374; 99285; C9803; J1815; J7030; U0003

== ENCOUNTER 2020-08-17 07:10 | Day surgery (SDC) | payer MEDICARE, BC ==
[2020-08-12 16:05] LABS: Basophils # (auto) 0.1 10 ^3/uL (0-0.2); Basophils % (auto) 0.9 % (0.0-2.0); Eosinophils # (auto) 0.1 10 ^3/uL (0-0.8); Lymphocytes # (auto) 1.9 10 ^3/uL (0.4-5.4); Monocytes # (auto) 0.6 10 ^3/uL (0-1.3); Neutrophils # (auto) 5.6 10 ^3/uL (1.6-8.6)
[2020-08-12 16:07] LABS: Eosinophils % (auto) 1.8 % (0.0-7.0); Hematocrit 34.3 % (36.0-46.0); Hemoglobin 10.8 g/dL (12.2-16.2); Mean Corpuscular Hgb Conc. 31.7 g/dL (32.0-36.0); Mean Corpuscular Volume 72.7 fL (80.0-100.0); Monocytes % (auto) 7.1 % (0.0-12.0); Neutrophils % (auto) 67.2 % (37.0-80.0); Platelet Count (auto) 288 10^3/uL (140-450); Red Blood Cells 4.72 10^6/uL (4.0-5.20); White Blood Cell 8.3 10^3/uL (4.4-10.8)
[2020-08-12 16:08] LABS: Urine Bacteria FEW /hpf (None Seen); Urine Blood Negative /uL (Negative); Urine Specific Gravity 1.026 (1.001-1.035); Urine WBC 2 /hpf (0 - 5)
[2020-08-12 16:25] LABS: Albumin 3.8 g/dL (3.4-5.0); Calcium 9.7 mg/dL (8.5-10.1); Potassium 4.4 mmol/L (3.5-5.1)
[2020-08-12 16:28] LABS: BUN/Creatinine Ratio 22.7; Bilirubin, Total 0.2 mg/dL (0.2-1.0); Total Protein 8.1 g/dL (6.4-8.2)
[2020-08-12 16:42] LABS: INR 0.93 (0.9-1.15); Partial Thromboplastin Time 24.5 sec (23.0-31.2)
[~2020-08-17] VITALS: Ht 165.1 cm; Wt 79.4 kg
[~2020-08-17 07:10] MED LIST changes: +INSLANTI SC; -LEVEMIR SC; -LORA10TA58 PO; +METF-370 PO; +RAMI5CAP40 PO; +SITA100T7 PO
[2020-08-17] MEDS ORDERED: ceFAZolin 1GM/50ML 50 ML IV ONE (07:28)
[2020-08-17] MEDS ORDERED: BUPIVACAINE 0.75% INJ 10ML MPV SDV IJ ONE (07:38)
[2020-08-17] MEDS ORDERED: BACITRACIN TOP OINT 1 UD PKG TOP ONE (07:38)
[2020-08-17] MEDS ORDERED: BUPIVACAINE HCL 0 ML ONE (07:45)
[2020-08-17] MEDS ORDERED: MEPERIDINE HCL (50 MG/ML) 1 ML VIAL ONE (08:26)
[2020-08-17] MEDS ORDERED: MIDAZOLAM HCL 1MG/1ML-2 ML VIAL ONE (08:26)
[2020-08-17] MEDS ORDERED: fentaNYL CITRATE 100 MCG/2 ML VL ONE (08:26)
[2020-08-17] MEDS ORDERED: ROPIVACAINE 0.5% (5MG/ML) 20ML AMPULE IJ ONE (08:42)
[2020-08-17] MEDS ORDERED: PROPOFOL 10 MG/ML 20 ML IV ONE (09:25)
[2020-08-17] MEDS ORDERED: DexAMETHasone SOD PHOS 10MG/1ML VIAL INJ ONE (09:25)
[2020-08-17] MEDS ORDERED: METOCLOPRAMIDE HCL 5MG/ml INJ 2ml VIAL ONE (09:26)
[2020-08-17] MEDS ORDERED: ONDANSETRON HCL 4 MG/2 ML VIAL IV PRN (09:30)
[2020-08-17] MEDS ORDERED: MIDAZOLAM HCL 1MG/1ML-2 ML VIAL IV PRN (09:30)
[2020-08-17] MEDS ORDERED: MORPHINE SULFATE 4 MG/ML SYR/VIAL IV PRN (09:30)
[2020-08-17] MEDS ORDERED: ePHEDrine SULFATE 50 MG/ML AMP IV PRN (09:30)
[2020-08-17] MEDS ORDERED: LABETALOL HCL 5 MG/ML 4ML SYRINGE IV PRN (09:30)
[2020-08-17] MEDS ORDERED: ACCU-CHEK COMFORT CURVE STRIP VI ONE (09:30)
[2020-08-17] MEDS ORDERED: HYDROmorphone HCL 2 MG/ML VL IV PRN (09:30)
[2020-08-17] MEDS ORDERED: ONDANSETRON HCL 4 MG/2 ML VIAL IV ONE (10:18)
[2020-08-17] MEDS ORDERED: HYDROmorphone HCL 2 MG/ML VL IV ONE (10:18)
[2020-08-17 11:00] VITALS: BP 148/76
== END 2020-08-17 11:15 | disposition home or self-care (01) ==
LOC: SUR 07:10
PROVIDERS: ATTEND Podiatrist Foot & Ankle Surgery
DX: Z47.2 Encounter for removal of internal fixation device (principal); N80.8 Other endometriosis; E66.01 Morbid (severe) obesity due to excess calories; J44.9 Chronic obstructive pulmonary disease, unspecified; G40.909 Epilepsy, unspecified, not intractable, without status epilepticus; K21.9 Gastro-esophageal reflux disease without esophagitis; E11.22 Type 2 diabetes mellitus with diabetic chronic kidney disease; I12.9 Hypertensive chronic kidney disease with stage 1 through stage 4 chronic kidney disease, or unspecified chronic kidney disease; N18.2 Chronic kidney disease, stage 2 (mild); D64.9 Anemia, unspecified; E11.42 Type 2 diabetes mellitus with diabetic polyneuropathy; Z88.6 Allergy status to analgesic agent; E66.9 Obesity, unspecified; Z85.118 Personal history of other malignant neoplasm of bronchus and lung; Z68.32 Body mass index [BMI] 32.0-32.9, adult; Z20.822 Contact with and (suspected) exposure to COVID-19; Z98.890 Other specified postprocedural states; Z79.899 Other long term (current) drug therapy; Z98.51 Tubal ligation status; Z90.710 Acquired absence of both cervix and uterus; Z80.41 Family history of malignant neoplasm of ovary; Z91.018 Allergy to other foods
CPT/HCPCS: 20680; 36415; 80053; 81001; 82962; 85025; 85610; 85730; 88300; J0690; J1100; J1170; J2175; J2250; J2405; J2704; J2765; J2795; J3010; U0003; J3490

== ENCOUNTER 2020-09-27 10:27 | Inpatient (IN) | payer MEDICARE, BC ==
[~2020-09-27] VITALS: Ht 165.1 cm; Wt 85.4 kg
[~2020-09-27 10:27] MED LIST changes: -ASPI-231 PO; +ASPI1TAB20 PO
[2020-09-27] MEDS ORDERED: PIPERACILLIN-TAZOB 3.375GM 100 ML IV ONE (11:00)
[2020-09-27] MEDS ORDERED: SODIUM CHLORIDE 0.9% 1,000 ML IV ONE ×2 (11:00)
[2020-09-27 11:59] LABS: Eosinophils # (auto) 0 10 ^3/uL (0-0.8)
[2020-09-27 12:02] LABS: Basophils # (auto) 0 10 ^3/uL (0-0.2); Basophils % (auto) 0.5 % (0.0-2.0); Eosinophils % (auto) 0.5 % (0.0-7.0); Hematocrit 27.5 % (36.0-46.0); Hemoglobin 8.4 g/dL (12.2-16.2); Lymphocytes # (auto) 0.8 10 ^3/uL (0.4-5.4); Lymphocytes % (auto) 8.3 % (10.0-50.0); Mean Corpuscular Hemoglobin 22.5 pg (28.0-32.0); Mean Corpuscular Hgb Conc. 30.6 g/dL (32.0-36.0); Mean Corpuscular Volume 73.6 fL (80.0-100.0); Monocytes # (auto) 0.6 10 ^3/uL (0-1.3); Monocytes % (auto) 6.4 % (0.0-12.0); Neutrophils % (auto) 84.3 % (37.0-80.0); Red Blood Cells 3.73 10^6/uL (4.0-5.20); White Blood Cell 9.5 10^3/uL (4.4-10.8)
[2020-09-27 12:11] LABS: Red Cell Distribution Width 21.1 % (11.8-14.3)
[2020-09-27 12:14] LABS: Albumin 2.4 g/dL (3.4-5.0); Calcium 8.9 mg/dL (8.5-10.1); Potassium 4.7 mmol/L (3.5-5.1)
[2020-09-27 12:16] LABS: INR 0.97 (0.9-1.15); Partial Thromboplastin Time 27.6 sec (23.0-31.2)
[2020-09-27 12:19] LABS: BUN/Creatinine Ratio 14.3; Bilirubin, Total 0.4 mg/dL (0.2-1.0); Total Protein 7.9 g/dL (6.4-8.2)
[2020-09-27] MEDS ORDERED: MORPHINE SULFATE 4 MG/ML SYR/VIAL IV ONE ×2 (12:45)
[2020-09-27] MEDS ORDERED: ONDANSETRON HCL 4 MG/2 ML VIAL IV ONE ×2 (12:45)
[2020-09-27] MEDS ORDERED: ALBUTEROL SULF HFA 90MCG INH 200DOSE IN PRN (13:30)
[2020-09-27] MEDS ORDERED: DEXTROSE (50%) 50ML SYRG IV PRN (13:30)
[2020-09-27] MEDS ORDERED: MORPHINE SULFATE INJECTION 2 MG/ML SYRG IV PRN (13:30)
[2020-09-27] MEDS ORDERED: ACETAMINOPHEN 325 MG TAB PO PRN (13:30)
[2020-09-27] MEDS ORDERED: NITROGLYCERIN 0.4 MG SL TAB SL PRN (13:30)
[2020-09-27] MEDS ORDERED: VANCOMYCIN PER PHARMACY 0 MG IV SCH (14:30)
[2020-09-27] MEDS: BETHANECHOL CHLORIDE 50 MG PO SCH ×2 (14:50→22:00)
[2020-09-27] MEDS: SUCRALFATE 1 GM TAB PO SCH ×2 (14:55→21:54)
[2020-09-27] MEDS ORDERED: LIDOCAINE 1% (LOCAL ANESTH.) PF 5ml SDV ID ONE (15:00)
[2020-09-27] MEDS ORDERED: VANCOMYCIN 1GM/250ML 250 ML IV ONE (15:00)
[2020-09-27] MEDS: SODIUM CHLORIDE 0.9% 1,000 ML IV SCH (15:26)
[2020-09-27] MEDS ORDERED: POTASSIUM CHL 20 Meq TABLET PO ONE (17:00)
[2020-09-27] MEDS: HYDROmorphone HCL 2 MG/ML VL IV PRN ×2 (17:10→23:50)
[2020-09-27] MEDS: InsuLIN REG 1unit/0.01ml Soln (100units/ml) SC SCH (17:10)
[2020-09-27] MEDS: ACCU-CHEK COMFORT CURVE STRIP VI SCH (17:12)
[2020-09-27] MEDS ORDERED: ONDANSETRON HCL 4 MG/2 ML VIAL IV PRN (17:45)
[2020-09-27] MEDS: busPIRone HCL 10 MG TAB PO SCH (21:54)
[2020-09-27] MEDS: PANTOPRAZOLE 40 MG/10 ML VIAL INJ IV SCH (21:54)
[2020-09-27] MEDS: SODIUM CHLOR 0.9% PF (SALINE LOCK) 10ML VIAL/SYR IV SCH (21:55)
[2020-09-27 22:05] VITALS: BP 122/71
[2020-09-27 22:10] VITALS: BP 122/71
[2020-09-27 22:30] VITALS: BP 118/64
[2020-09-27] MEDS: RAMIPRIL 2.5 MG CAP PO SCH (22:50)
[2020-09-27] MEDS: INSULIN LANTUS (GLARGINE) 1 /0.01ml (100units/ml) SC SCH (22:50)
[2020-09-27 23:00] VITALS: BP 119/64
[2020-09-27 23:30] VITALS: BP 98/41
[2020-09-28] VITALS (48 sets, daily range): BP systolic 68–142; BP diastolic 30–106
[2020-09-28] MEDS: HYDROmorphone HCL 2 MG/ML VL IV PRN ×2 (01:31→14:59)
[2020-09-28] MEDS: ACCU-CHEK COMFORT CURVE STRIP VI SCH ×4 (05:45→18:34)
[2020-09-28] MEDS: InsuLIN REG 1unit/0.01ml Soln (100units/ml) SC SCH ×4 (05:45→18:34)
[2020-09-28] MEDS: BETHANECHOL CHLORIDE 50 MG PO SCH ×3 (05:46→21:16)
[2020-09-28] MEDS: SUCRALFATE 1 GM TAB PO SCH ×3 (05:51→21:16)
[2020-09-28 06:05] LABS: Albumin 1.9 g/dL (3.4-5.0); Calcium 8.4 mg/dL (8.5-10.1); Potassium 4.2 mmol/L (3.5-5.1)
[2020-09-28 06:09] LABS: Bilirubin, Total 0.3 mg/dL (0.2-1.0); Total Protein 6.4 g/dL (6.4-8.2)
[2020-09-28 06:12] LABS: Basophils # (auto) 0.1 10 ^3/uL (0-0.2); Basophils % (auto) 0.8 % (0.0-2.0); Eosinophils # (auto) 0.2 10 ^3/uL (0-0.8); Eosinophils % (auto) 3.3 % (0.0-7.0); Hematocrit 22.1 % (36.0-46.0); Lymphocytes # (auto) 1.6 10 ^3/uL (0.4-5.4); Lymphocytes % (auto) 26.2 % (10.0-50.0); Mean Corpuscular Hemoglobin 22.5 pg (28.0-32.0); Mean Corpuscular Hgb Conc. 31.1 g/dL (32.0-36.0); Mean Corpuscular Volume 72.4 fL (80.0-100.0); Monocytes # (auto) 0.6 10 ^3/uL (0-1.3); Monocytes % (auto) 10.6 % (0.0-12.0); Neutrophils # (auto) 3.5 10 ^3/uL (1.6-8.6); Neutrophils % (auto) 59.1 % (37.0-80.0); Nucleated Red Blood Cells % 0.1 %; Red Blood Cells 3.05 10^6/uL (4.0-5.20)
[2020-09-28 06:29] LABS: Hemoglobin 6.9 g/dL (12.2-16.2)
[2020-09-28] MEDS ORDERED: FUROSEMIDE 20 MG/2 ML VIAL IV ONE (07:00)
[2020-09-28] MEDS ORDERED: VANCOMYCIN PER PHARMACY 0 MG IV SCH (08:15)
[2020-09-28] MEDS: PANTOPRAZOLE 40 MG/10 ML VIAL INJ IV SCH ×2 (08:58→21:15)
[2020-09-28] MEDS: SODIUM CHLOR 0.9% PF (SALINE LOCK) 10ML VIAL/SYR IV SCH ×2 (08:59→21:15)
[2020-09-28] MEDS: busPIRone HCL 10 MG TAB PO SCH (08:59)
[2020-09-28] MEDS: CITALOPRAM HYDROBR 20 MG TAB PO SCH (08:59)
[2020-09-28] MEDS: HYDROcodone-ACET 10/325MG TAB PO PRN ×2 (09:08→21:26)
[2020-09-28] MEDS: VANCOMYCIN 1GM/250ML 250 ML IV SCH ×2 (09:20→21:15)
[2020-09-28] MEDS ORDERED: [UNRECOGNIZED DRUG - OTHER] INJ ONE (10:45)
[2020-09-28] MEDS: SODIUM CHLORIDE 0.9% 1,000 ML IV SCH ×2 (13:30→18:06)
[2020-09-28] MEDS: INSULIN LANTUS (GLARGINE) 1 /0.01ml (100units/ml) SC SCH (21:28)
[2020-09-28] MEDS: RAMIPRIL 2.5 MG CAP PO SCH (22:00)
[2020-09-29] VITALS (40 sets, daily range): BP systolic 90–130; BP diastolic 43–91
[2020-09-29] MEDS: InsuLIN REG 1unit/0.01ml Soln (100units/ml) SC SCH ×4 (00:42→17:59)
[2020-09-29] MEDS: ACCU-CHEK COMFORT CURVE STRIP VI SCH ×4 (00:43→17:55)
[2020-09-29] MEDS: SODIUM CHLORIDE 0.9% 1,000 ML IV SCH ×2 (02:45→22:42)
[2020-09-29] MEDS: SUCRALFATE 1 GM TAB PO SCH ×3 (03:22→21:25)
[2020-09-29] MEDS: BETHANECHOL CHLORIDE 50 MG PO SCH ×3 (03:22→21:24)
[2020-09-29 05:59] LABS: Basophils # (auto) 0.1 10 ^3/uL (0-0.2); Eosinophils # (auto) 0.1 10 ^3/uL (0-0.8); Eosinophils % (auto) 2.6 % (0.0-7.0); Monocytes # (auto) 0.5 10 ^3/uL (0-1.3)
[2020-09-29 06:01] LABS: Basophils % (auto) 1.2 % (0.0-2.0); Hematocrit 24.6 % (36.0-46.0); Hemoglobin 8.3 g/dL (12.2-16.2); Lymphocytes % (auto) 22.6 % (10.0-50.0); Mean Corpuscular Hemoglobin 25.1 pg (28.0-32.0); Mean Corpuscular Hgb Conc. 33.5 g/dL (32.0-36.0); Monocytes % (auto) 11.9 % (0.0-12.0); Neutrophils # (auto) 2.8 10 ^3/uL (1.6-8.6); Neutrophils % (auto) 61.7 % (37.0-80.0); Nucleated Red Blood Cells % 0.2 %; Red Blood Cells 3.29 10^6/uL (4.0-5.20); White Blood Cell 4.6 10^3/uL (4.4-10.8)
[2020-09-29 06:17] LABS: Albumin 1.8 g/dL (3.4-5.0); Calcium 7.5 mg/dL (8.5-10.1); Potassium 3.7 mmol/L (3.5-5.1)
[2020-09-29 06:23] LABS: BUN/Creatinine Ratio 16.7; Bilirubin, Total 0.2 mg/dL (0.2-1.0); Total Protein 5.9 g/dL (6.4-8.2)
[2020-09-29] MEDS ORDERED: LIDOCAINE VISCOUS 2% 15ML UD ONE (08:44)
[2020-09-29] MEDS ORDERED: SODIUM CHLORIDE LOCK 10 ML ONE (08:44)
[2020-09-29] MEDS ORDERED: ONABOTULINUMTOXINA 200 UNIT INJ IJ ONE (08:45)
[2020-09-29] MEDS ORDERED: diphenhdrAMINE HCL 50 MG/1 ML VL ONE (08:45)
[2020-09-29] MEDS: fentaNYL CITRATE 100 MCG/2 ML VL ONE ×2 (09:22→09:28)
[2020-09-29] MEDS: MIDAZOLAM HCL 5 MG/ML-1ML VIAL ONE ×2 (09:22→09:28)
[2020-09-29] MEDS: ENOXAPARIN SOD 40 MG/0.4 ML SYRINGE SC SCH (10:00)
[2020-09-29] MEDS: PANTOPRAZOLE 40 MG/10 ML VIAL INJ IV SCH ×2 (12:03→21:24)
[2020-09-29] MEDS: VANCOMYCIN 1GM/250ML 250 ML IV SCH ×2 (12:03→22:00)
[2020-09-29] MEDS: SODIUM CHLOR 0.9% PF (SALINE LOCK) 10ML VIAL/SYR IV SCH ×2 (12:04→21:24)
[2020-09-29] MEDS: HYDROmorphone HCL 2 MG/ML VL IV PRN ×2 (12:18→18:07)
[2020-09-29] MEDS: CITALOPRAM HYDROBR 20 MG TAB PO SCH (12:54)
[2020-09-29] MEDS: busPIRone HCL 10 MG TAB PO SCH (12:54)
[2020-09-29] MEDS: MUPIROCIN 2% OINT 15gm or 22gm EACHNOSTRI SCH ×2 (15:07→21:24)
[2020-09-29 15:43] LABS: Urine Bacteria FEW /hpf (None Seen); Urine Blood Negative /uL (Negative); Urine Specific Gravity 1.007 (1.001-1.035); Urine WBC 8 /hpf (0 - 5)
[2020-09-29] MEDS: RAMIPRIL 2.5 MG CAP PO SCH (21:24)
[2020-09-29] MEDS ORDERED: INSULIN LANTUS (GLARGINE) 1 /0.01ml (100units/ml) SC SCH (22:00)
[2020-09-30] VITALS (13 sets, daily range): BP systolic 97–156; BP diastolic 49–87
[2020-09-30] MEDS: BETHANECHOL CHLORIDE 50 MG PO SCH ×3 (05:51→22:44)
[2020-09-30] MEDS: ACCU-CHEK COMFORT CURVE STRIP VI SCH ×5 (05:52→23:38)
[2020-09-30] MEDS: InsuLIN REG 1unit/0.01ml Soln (100units/ml) SC SCH ×5 (05:52→23:41)
[2020-09-30] MEDS: SUCRALFATE 1 GM TAB PO SCH ×3 (05:52→22:45)
[2020-09-30] MEDS: HYDROmorphone HCL 2 MG/ML VL IV PRN ×3 (05:52→19:26)
[2020-09-30 06:22] LABS: Basophils # (auto) 0 10 ^3/uL (0-0.2); Eosinophils # (auto) 0.1 10 ^3/uL (0-0.8); Eosinophils % (auto) 1.2 % (0.0-7.0); Lymphocytes # (auto) 1.1 10 ^3/uL (0.4-5.4); Monocytes # (auto) 0.5 10 ^3/uL (0-1.3); Neutrophils # (auto) 4.5 10 ^3/uL (1.6-8.6); Nucleated Red Blood Cells % 0.1 %
[2020-09-30 06:25] LABS: Basophils % (auto) 0.6 % (0.0-2.0); Hematocrit 28.6 % (36.0-46.0); Hemoglobin 9.1 g/dL (12.2-16.2); Lymphocytes % (auto) 17.6 % (10.0-50.0); Mean Corpuscular Hemoglobin 24.6 pg (28.0-32.0); Mean Corpuscular Hgb Conc. 31.8 g/dL (32.0-36.0); Mean Corpuscular Volume 77.2 fL (80.0-100.0); Monocytes % (auto) 8.5 % (0.0-12.0); Neutrophils % (auto) 72.1 % (37.0-80.0); Red Blood Cells 3.71 10^6/uL (4.0-5.20); White Blood Cell 6.2 10^3/uL (4.4-10.8)
[2020-09-30 06:38] LABS: Albumin 1.9 g/dL (3.4-5.0); BUN/Creatinine Ratio 9.2; Calcium 8.4 mg/dL (8.5-10.1); Potassium 4.1 mmol/L (3.5-5.1)
[2020-09-30 06:41] LABS: Bilirubin, Total 0.3 mg/dL (0.2-1.0); Total Protein 6.6 g/dL (6.4-8.2)
[2020-09-30 07:17] LABS: Red Cell Distribution Width 21.5 % (11.8-14.3)
[2020-09-30] MEDS ORDERED: NYSTATIN (MOUTH-THROAT) 500,000 UNITS/5 ML SUSP MT ONE (08:30)
[2020-09-30] MEDS: MUPIROCIN 2% OINT 15gm or 22gm EACHNOSTRI SCH ×2 (09:25→22:43)
[2020-09-30] MEDS: busPIRone HCL 10 MG TAB PO SCH (09:26)
[2020-09-30] MEDS: VANCOMYCIN 1GM/250ML 250 ML IV SCH ×2 (09:26→22:43)
[2020-09-30] MEDS: PANTOPRAZOLE 40 MG/10 ML VIAL INJ IV SCH ×2 (09:26→22:44)
[2020-09-30] MEDS: SODIUM CHLOR 0.9% PF (SALINE LOCK) 10ML VIAL/SYR IV SCH ×2 (09:26→22:44)
[2020-09-30] MEDS: CITALOPRAM HYDROBR 20 MG TAB PO SCH (09:27)
[2020-09-30] MEDS: ENOXAPARIN SOD 40 MG/0.4 ML SYRINGE SC SCH (09:27)
[2020-09-30] MEDS: ASPirin-EC 81 mg tab PO SCH (09:27)
[2020-09-30] MEDS ORDERED: ENOXAPARIN SOD 60 MG/0.6 ML SYRINGE SC SCH (10:00)
[2020-09-30] MEDS: SODIUM CHLORIDE 0.9% 1,000 ML IV SCH (12:50)
[2020-09-30] MEDS ORDERED: INSULIN LANTUS (GLARGINE) 1 /0.01ml (100units/ml) SC SCH (22:00)
[2020-09-30] MEDS: RAMIPRIL 2.5 MG CAP PO SCH (22:45)
[2020-09-30] MEDS: HYDROcodone-ACET 10/325MG TAB PO PRN (23:20)
[2020-10-01] MEDS: SODIUM CHLORIDE 0.9% 1,000 ML IV SCH ×2 (03:18→17:08)
[2020-10-01] MEDS: HYDROmorphone HCL 2 MG/ML VL IV PRN ×4 (03:32→23:00)
[2020-10-01 05:00] VITALS: BP 118/66
[2020-10-01] MEDS: SUCRALFATE 1 GM TAB PO SCH ×3 (05:51→21:51)
[2020-10-01] MEDS: ACCU-CHEK COMFORT CURVE STRIP VI SCH ×4 (05:51→21:52)
[2020-10-01] MEDS: BETHANECHOL CHLORIDE 50 MG PO SCH ×3 (05:51→21:51)
[2020-10-01] MEDS: InsuLIN REG 1unit/0.01ml Soln (100units/ml) SC SCH ×4 (05:51→23:47)
[2020-10-01] MEDS ORDERED: DEXTROSE (50%) 50ML SYRG IV PRN ×2 (07:00)
[2020-10-01] MEDS: HYDROcodone-ACET 10/325MG TAB PO PRN ×3 (08:48→19:13)
[2020-10-01 09:00] VITALS: BP 143/79
[2020-10-01] MEDS: VANCOMYCIN 1GM/250ML 250 ML IV SCH (10:00)
[2020-10-01] MEDS: PANTOPRAZOLE 40 MG/10 ML VIAL INJ IV SCH ×2 (10:40→21:50)
[2020-10-01] MEDS: MUPIROCIN 2% OINT 15gm or 22gm EACHNOSTRI SCH ×2 (10:40→21:50)
[2020-10-01] MEDS: SODIUM CHLOR 0.9% PF (SALINE LOCK) 10ML VIAL/SYR IV SCH ×2 (10:41→21:51)
[2020-10-01] MEDS: busPIRone HCL 10 MG TAB PO SCH (10:41)
[2020-10-01] MEDS: ENOXAPARIN SOD 40 MG/0.4 ML SYRINGE SC SCH (10:41)
[2020-10-01] MEDS: CITALOPRAM HYDROBR 20 MG TAB PO SCH (10:41)
[2020-10-01] MEDS: ASPirin-EC 81 mg tab PO SCH (10:42)
[2020-10-01 13:00] VITALS: BP 142/80
[2020-10-01 17:00] VITALS: BP 142/78
[2020-10-01] MEDS ORDERED: VANCOMYCIN 1GM/250ML 250 ML IV SCH (21:00)
[2020-10-01] MEDS: RAMIPRIL 2.5 MG CAP PO SCH (21:55)
[2020-10-01 22:00] VITALS: BP 148/88
[2020-10-01] MEDS ORDERED: INSULIN LANTUS (GLARGINE) 1 /0.01ml (100units/ml) SC SCH (22:00)
[2020-10-02] MEDS: HYDROcodone-ACET 10/325MG TAB PO PRN ×4 (02:53→22:43)
[2020-10-02 05:00] VITALS: BP 126/68
[2020-10-02] MEDS: HYDROmorphone HCL 2 MG/ML VL IV PRN ×3 (05:00→17:56)
[2020-10-02] MEDS: BETHANECHOL CHLORIDE 50 MG PO SCH ×3 (05:27→22:24)
[2020-10-02] MEDS: SUCRALFATE 1 GM TAB PO SCH ×3 (05:27→22:24)
[2020-10-02] MEDS: ACCU-CHEK COMFORT CURVE STRIP VI SCH ×3 (05:27→17:24)
[2020-10-02] MEDS: InsuLIN REG 1unit/0.01ml Soln (100units/ml) SC SCH ×3 (05:28→17:24)
[2020-10-02] MEDS: SODIUM CHLORIDE 0.9% 1,000 ML IV SCH ×2 (07:54→22:41)
[2020-10-02 09:00] VITALS: BP 110/63
[2020-10-02] MEDS: SODIUM CHLOR 0.9% PF (SALINE LOCK) 10ML VIAL/SYR IV SCH ×2 (09:48→22:24)
[2020-10-02] MEDS: CITALOPRAM HYDROBR 20 MG TAB PO SCH (09:48)
[2020-10-02] MEDS: busPIRone HCL 10 MG TAB PO SCH (09:48)
[2020-10-02] MEDS: MUPIROCIN 2% OINT 15gm or 22gm EACHNOSTRI SCH ×2 (09:48→22:24)
[2020-10-02] MEDS: PANTOPRAZOLE 40 MG/10 ML VIAL INJ IV SCH ×2 (09:48→22:24)
[2020-10-02] MEDS: ASPirin-EC 81 mg tab PO SCH (09:49)
[2020-10-02] MEDS: ENOXAPARIN SOD 40 MG/0.4 ML SYRINGE SC SCH (09:49)
[2020-10-02 10:38] LABS: Basophils # (auto) 0 10 ^3/uL (0-0.2); Eosinophils # (auto) 0.2 10 ^3/uL (0-0.8); Hemoglobin 8.3 g/dL (12.2-16.2); Lymphocytes # (auto) 1.3 10 ^3/uL (0.4-5.4); Monocytes # (auto) 0.4 10 ^3/uL (0-1.3)
[2020-10-02 10:41] LABS: Basophils % (auto) 0.7 % (0.0-2.0); Eosinophils % (auto) 3.7 % (0.0-7.0); Hematocrit 25.8 % (36.0-46.0); Mean Corpuscular Hemoglobin 24.8 pg (28.0-32.0); Mean Corpuscular Volume 77.6 fL (80.0-100.0); Monocytes % (auto) 8.5 % (0.0-12.0); Neutrophils % (auto) 61.1 % (37.0-80.0); Nucleated Red Blood Cells % 0.1 %; Red Blood Cells 3.33 10^6/uL (4.0-5.20)
[2020-10-02 10:45] LABS: Red Cell Distribution Width 22.8 % (11.8-14.3)
[2020-10-02 10:53] LABS: Potassium 3.7 mmol/L (3.5-5.1)
[2020-10-02 10:58] LABS: Albumin 1.8 g/dL (3.4-5.0); BUN/Creatinine Ratio 11.6; Bilirubin, Total 0.1 mg/dL (0.2-1.0); Calcium 7.1 mg/dL (8.5-10.1); Total Protein 5.8 g/dL (6.4-8.2)
[2020-10-02] MEDS ORDERED: VANCOMYCIN 1GM/250ML 250 ML IV ONE (12:15)
[2020-10-02 13:00] VITALS: BP 109/74
[2020-10-02 17:00] VITALS: BP 134/74
[2020-10-02 22:00] VITALS: BP 118/69
[2020-10-02] MEDS ORDERED: INSULIN LANTUS (GLARGINE) 1 /0.01ml (100units/ml) SC SCH (22:00)
[2020-10-02] MEDS: RAMIPRIL 2.5 MG CAP PO SCH (22:00)
[2020-10-03] MEDS: ACCU-CHEK COMFORT CURVE STRIP VI SCH ×5 (00:08→23:35)
[2020-10-03] MEDS: HYDROmorphone HCL 2 MG/ML VL IV PRN ×3 (00:16→18:02)
[2020-10-03] MEDS: VANCOMYCIN 1GM/250ML 250 ML IV SCH ×2 (02:48→18:01)
[2020-10-03 05:00] VITALS: BP 131/75
[2020-10-03] MEDS: BETHANECHOL CHLORIDE 50 MG PO SCH ×3 (05:09→21:47)
[2020-10-03] MEDS: SUCRALFATE 1 GM TAB PO SCH ×3 (05:09→21:48)
[2020-10-03] MEDS: InsuLIN REG 1unit/0.01ml Soln (100units/ml) SC SCH ×5 (05:10→23:35)
[2020-10-03] MEDS: HYDROcodone-ACET 10/325MG TAB PO PRN ×3 (05:12→21:53)
[2020-10-03 06:34] LABS: Basophils # (auto) 0 10 ^3/uL (0-0.2); Eosinophils # (auto) 0.3 10 ^3/uL (0-0.8); Hemoglobin 9.1 g/dL (12.2-16.2); Monocytes # (auto) 0.4 10 ^3/uL (0-1.3); Neutrophils # (auto) 2.6 10 ^3/uL (1.6-8.6); Nucleated Red Blood Cells % 0.1 %
[2020-10-03 06:36] LABS: Basophils % (auto) 0.9 % (0.0-2.0); Eosinophils % (auto) 5.1 % (0.0-7.0); Hematocrit 28.3 % (36.0-46.0); Lymphocytes # (auto) 1.7 10 ^3/uL (0.4-5.4); Lymphocytes % (auto) 33.4 % (10.0-50.0); Mean Corpuscular Hemoglobin 24.7 pg (28.0-32.0); Mean Corpuscular Hgb Conc. 32.3 g/dL (32.0-36.0); Mean Corpuscular Volume 76.3 fL (80.0-100.0); Monocytes % (auto) 8.9 % (0.0-12.0); Neutrophils % (auto) 51.7 % (37.0-80.0)
[2020-10-03 06:46] LABS: Potassium 4.2 mmol/L (3.5-5.1)
[2020-10-03 06:56] LABS: Red Cell Distribution Width 22.5 % (11.8-14.3)
[2020-10-03 06:57] LABS: Albumin 2.1 g/dL (3.4-5.0); BUN/Creatinine Ratio 6.8; Bilirubin, Total 0.2 mg/dL (0.2-1.0); Calcium 8.5 mg/dL (8.5-10.1); Total Protein 6.9 g/dL (6.4-8.2)
[2020-10-03 09:06] VITALS: BP 132/80
[2020-10-03] MEDS: PANTOPRAZOLE 40 MG/10 ML VIAL INJ IV SCH ×2 (09:56→21:47)
[2020-10-03] MEDS: CITALOPRAM HYDROBR 20 MG TAB PO SCH (09:57)
[2020-10-03] MEDS: busPIRone HCL 10 MG TAB PO SCH (09:57)
[2020-10-03] MEDS: ASPirin-EC 81 mg tab PO SCH (09:58)
[2020-10-03] MEDS: MUPIROCIN 2% OINT 15gm or 22gm EACHNOSTRI SCH (09:59)
[2020-10-03] MEDS: SODIUM CHLOR 0.9% PF (SALINE LOCK) 10ML VIAL/SYR IV SCH ×2 (09:59→21:47)
[2020-10-03] MEDS: ENOXAPARIN SOD 40 MG/0.4 ML SYRINGE SC SCH (10:01)
[2020-10-03 12:45] VITALS: BP 129/70
[2020-10-03] MEDS: SODIUM CHLORIDE 0.9% 1,000 ML IV SCH ×2 (12:51→23:37)
[2020-10-03 17:13] VITALS: BP 155/90
[2020-10-03 21:00] VITALS: BP 138/72
[2020-10-03] MEDS: RAMIPRIL 2.5 MG CAP PO SCH (21:47)
[2020-10-03] MEDS: INSULIN LANTUS (GLARGINE) 1 /0.01ml (100units/ml) SC SCH (22:00)
[2020-10-03] MEDS ORDERED: MUPIROCIN 2% OINT 15gm or 22gm EACHNOSTRI SCH (22:00)
[2020-10-04] MEDS: HYDROmorphone HCL 2 MG/ML VL IV PRN ×3 (00:04→16:53)
[2020-10-04] MEDS: HYDROcodone-ACET 10/325MG TAB PO PRN ×3 (04:07→20:42)
[2020-10-04 05:00] VITALS: BP 140/70
[2020-10-04] MEDS: SUCRALFATE 1 GM TAB PO SCH ×3 (05:20→21:31)
[2020-10-04] MEDS: BETHANECHOL CHLORIDE 50 MG PO SCH ×3 (05:20→21:31)
[2020-10-04] MEDS: ACCU-CHEK COMFORT CURVE STRIP VI SCH ×3 (05:21→17:55)
[2020-10-04] MEDS: InsuLIN REG 1unit/0.01ml Soln (100units/ml) SC SCH ×3 (05:25→17:55)
[2020-10-04 06:36] LABS: Potassium 3.9 mmol/L (3.5-5.1)
[2020-10-04 06:42] LABS: Albumin 2.2 g/dL (3.4-5.0); BUN/Creatinine Ratio 11.1; Calcium 8.6 mg/dL (8.5-10.1)
[2020-10-04 06:44] LABS: Bilirubin, Total 0.3 mg/dL (0.2-1.0); Total Protein 6.9 g/dL (6.4-8.2)
[2020-10-04 06:49] LABS: Eosinophils # (auto) 0.2 10 ^3/uL (0-0.8); Lymphocytes # (auto) 1.4 10 ^3/uL (0.4-5.4); Mean Corpuscular Hemoglobin 24.4 pg (28.0-32.0); Monocytes # (auto) 0.4 10 ^3/uL (0-1.3); Neutrophils # (auto) 2.3 10 ^3/uL (1.6-8.6)
[2020-10-04 06:51] LABS: Basophils # (auto) 0 10 ^3/uL (0-0.2); Basophils % (auto) 1.1 % (0.0-2.0); Eosinophils % (auto) 4.7 % (0.0-7.0); Hematocrit 29.4 % (36.0-46.0); Hemoglobin 9.5 g/dL (12.2-16.2); Lymphocytes % (auto) 32.5 % (10.0-50.0); Mean Corpuscular Hgb Conc. 32.2 g/dL (32.0-36.0); Mean Corpuscular Volume 75.7 fL (80.0-100.0); Monocytes % (auto) 9.9 % (0.0-12.0); Neutrophils % (auto) 51.8 % (37.0-80.0); Nucleated Red Blood Cells % 0.1 %; Red Blood Cells 3.89 10^6/uL (4.0-5.20); White Blood Cell 4.4 10^3/uL (4.4-10.8)
[2020-10-04 07:23] LABS: Red Cell Distribution Width 22.4 % (11.8-14.3)
[2020-10-04 08:57] VITALS: BP 121/68
[2020-10-04] MEDS: VANCOMYCIN 1GM/250ML 250 ML IV SCH ×2 (10:01→23:57)
[2020-10-04] MEDS: SODIUM CHLORIDE 0.9% 1,000 ML IV SCH ×2 (10:02→17:13)
[2020-10-04] MEDS: SODIUM CHLOR 0.9% PF (SALINE LOCK) 10ML VIAL/SYR IV SCH ×2 (10:02→21:30)
[2020-10-04] MEDS: PANTOPRAZOLE 40 MG/10 ML VIAL INJ IV SCH ×2 (10:02→21:30)
[2020-10-04] MEDS: ASPirin-EC 81 mg tab PO SCH (10:03)
[2020-10-04] MEDS: ENOXAPARIN SOD 40 MG/0.4 ML SYRINGE SC SCH (10:03)
[2020-10-04] MEDS: busPIRone HCL 10 MG TAB PO SCH (10:04)
[2020-10-04] MEDS: CITALOPRAM HYDROBR 20 MG TAB PO SCH (10:04)
[2020-10-04 13:00] VITALS: BP 140/76
[2020-10-04] MEDS: FLUCONAZOLE 100 MG TAB PO SCH (15:38)
[2020-10-04] MEDS: RAMIPRIL 2.5 MG CAP PO SCH (21:31)
[2020-10-04] MEDS: INSULIN LANTUS (GLARGINE) 1 /0.01ml (100units/ml) SC SCH (21:32)
[2020-10-04 22:28] VITALS: BP 145/83
[2020-10-05] MEDS: HYDROmorphone HCL 2 MG/ML VL IV PRN ×3 (00:01→18:03)
[2020-10-05] MEDS: ACCU-CHEK COMFORT CURVE STRIP VI SCH ×4 (00:01→17:51)
[2020-10-05 00:11] LABS: INR 1.03 (0.9-1.15)
[2020-10-05] MEDS: InsuLIN REG 1unit/0.01ml Soln (100units/ml) SC SCH ×4 (00:18→18:05)
[2020-10-05 05:00] VITALS: BP_SYST 119; BP_SYST 168; BP_DIAS 84
[2020-10-05] MEDS: SUCRALFATE 1 GM TAB PO SCH ×3 (05:13→21:35)
[2020-10-05] MEDS: BETHANECHOL CHLORIDE 50 MG PO SCH ×3 (05:13→21:34)
[2020-10-05 05:58] LABS: Basophils # (auto) 0 10 ^3/uL (0-0.2); Eosinophils # (auto) 0.2 10 ^3/uL (0-0.8); Lymphocytes # (auto) 1.3 10 ^3/uL (0.4-5.4); Mean Corpuscular Volume 76.3 fL (80.0-100.0); Monocytes # (auto) 0.4 10 ^3/uL (0-1.3); Neutrophils # (auto) 2.2 10 ^3/uL (1.6-8.6)
[2020-10-05 06:01] LABS: Basophils % (auto) 1.1 % (0.0-2.0); Eosinophils % (auto) 4.2 % (0.0-7.0); Hematocrit 31.7 % (36.0-46.0); Hemoglobin 10.2 g/dL (12.2-16.2); Lymphocytes % (auto) 31.6 % (10.0-50.0); Mean Corpuscular Hemoglobin 24.6 pg (28.0-32.0); Mean Corpuscular Hgb Conc. 32.2 g/dL (32.0-36.0); Monocytes % (auto) 9.8 % (0.0-12.0); Neutrophils % (auto) 53.3 % (37.0-80.0); Nucleated Red Blood Cells % 0.1 %; Red Blood Cells 4.15 10^6/uL (4.0-5.20); White Blood Cell 4.2 10^3/uL (4.4-10.8)
[2020-10-05 06:03] LABS: Red Cell Distribution Width 22.1 % (11.8-14.3)
[2020-10-05 06:14] LABS: Potassium 4.4 mmol/L (3.5-5.1)
[2020-10-05 06:27] LABS: Albumin 2.3 g/dL (3.4-5.0); BUN/Creatinine Ratio 12.2; Bilirubin, Total 0.3 mg/dL (0.2-1.0); Calcium 9.3 mg/dL (8.5-10.1); Total Protein 7.7 g/dL (6.4-8.2)
[2020-10-05] MEDS ORDERED: ceFAZolin 1GM/50ML 50 ML IV ONE (06:34)
[2020-10-05] MEDS ORDERED: NEOMYCIN-BACITRACIN-POLYM 15GM TOP OINT TOP ONE (07:08)
[2020-10-05] MEDS ORDERED: ceFAZolin 1GM VL ONE ×2 (07:08→07:10)
[2020-10-05] MEDS ORDERED: ROPIVACAINE 0.5% (5MG/ML) 20ML AMPULE IJ ONE (07:10)
[2020-10-05] MEDS ORDERED: PHENYLEPHRINE HCL 10 MG/ML VL IV ONE (07:15)
[2020-10-05] MEDS ORDERED: fentaNYL CITRATE 100 MCG/2 ML VL ONE (07:46)
[2020-10-05] MEDS ORDERED: MIDAZOLAM HCL 2MG/2ML 2ml VIAL (1mg/ml) ONE (07:46)
[2020-10-05] MEDS ORDERED: MEPERIDINE HCL (25 MG/ML) 1ML VIAL ONE (07:46)
[2020-10-05] MEDS ORDERED: PROPOFOL 10 MG/ML 20 ML IV ONE (07:53)
[2020-10-05] MEDS ORDERED: DexAMETHasone SOD PHOS 10MG/1ML VIAL INJ ONE (07:53)
[2020-10-05] MEDS ORDERED: MORPHINE SULFATE 4 MG/ML SYR/VIAL IV PRN (09:15)
[2020-10-05] MEDS ORDERED: HYDROmorphone HCL 2 MG/ML VL IV PRN (09:15)
[2020-10-05] MEDS ORDERED: LABETALOL HCL 5 MG/ML 4ML SYRINGE IV PRN (09:15)
[2020-10-05] MEDS ORDERED: hydrALAZINE HCL 20 MG/ML VL IV PRN (09:15)
[2020-10-05] MEDS ORDERED: ACCU-CHEK COMFORT CURVE STRIP VI ONE (09:15)
[2020-10-05] MEDS ORDERED: ONDANSETRON HCL 4 MG/2 ML VIAL IV PRN (09:15)
[2020-10-05] MEDS ORDERED: MIDAZOLAM HCL 2MG/2ML 2ml VIAL (1mg/ml) IV PRN (09:15)
[2020-10-05] MEDS: ASPirin-EC 81 mg tab PO SCH (10:00)
[2020-10-05] MEDS: ENOXAPARIN SOD 40 MG/0.4 ML SYRINGE SC SCH (10:00)
[2020-10-05] MEDS: SODIUM CHLOR 0.9% PF (SALINE LOCK) 10ML VIAL/SYR IV SCH ×2 (12:26→21:34)
[2020-10-05] MEDS: busPIRone HCL 10 MG TAB PO SCH (12:31)
[2020-10-05] MEDS: PANTOPRAZOLE 40 MG/10 ML VIAL INJ IV SCH ×2 (12:31→21:33)
[2020-10-05] MEDS: CITALOPRAM HYDROBR 20 MG TAB PO SCH (12:31)
[2020-10-05] MEDS: FLUCONAZOLE 100 MG TAB PO SCH (12:32)
[2020-10-05] MEDS: SODIUM CHLORIDE 0.9% 1,000 ML IV SCH ×2 (12:36→21:33)
[2020-10-05 12:44] VITALS: BP 139/78
[2020-10-05] MEDS: HYDROcodone-ACET 10/325MG TAB PO PRN ×2 (15:10→21:37)
[2020-10-05] MEDS: VANCOMYCIN 1GM/250ML 250 ML IV SCH (15:12)
[2020-10-05 16:21] VITALS: BP 153/77
[2020-10-05] MEDS: RAMIPRIL 2.5 MG CAP PO SCH (21:35)
[2020-10-05] MEDS: INSULIN LANTUS (GLARGINE) 1 /0.01ml (100units/ml) SC SCH (21:39)
[2020-10-05 22:00] VITALS: BP 149/85
[2020-10-06] MEDS: HYDROmorphone HCL 2 MG/ML VL IV PRN ×4 (00:07→19:57)
[2020-10-06] MEDS: InsuLIN REG 1unit/0.01ml Soln (100units/ml) SC SCH ×4 (00:08→17:43)
[2020-10-06] MEDS: ACCU-CHEK COMFORT CURVE STRIP VI SCH ×4 (00:29→17:24)
[2020-10-06] MEDS: HYDROcodone-ACET 10/325MG TAB PO PRN ×4 (03:39→22:24)
[2020-10-06 05:00] VITALS: BP 118/66
[2020-10-06] MEDS: BETHANECHOL CHLORIDE 50 MG PO SCH ×3 (05:55→22:29)
[2020-10-06] MEDS: VANCOMYCIN 1GM/250ML 250 ML IV SCH ×2 (05:55→22:13)
[2020-10-06 05:56] LABS: Basophils # (auto) 0 10 ^3/uL (0-0.2); Basophils % (auto) 0.3 % (0.0-2.0); Eosinophils # (auto) 0 10 ^3/uL (0-0.8); Lymphocytes # (auto) 0.8 10 ^3/uL (0.4-5.4); Monocytes # (auto) 0.4 10 ^3/uL (0-1.3)
[2020-10-06] MEDS: SUCRALFATE 1 GM TAB PO SCH ×3 (05:56→22:14)
[2020-10-06 05:59] LABS: Hematocrit 29.2 % (36.0-46.0); Hemoglobin 9.4 g/dL (12.2-16.2); Lymphocytes % (auto) 11.6 % (10.0-50.0); Mean Corpuscular Hemoglobin 24.3 pg (28.0-32.0); Mean Corpuscular Hgb Conc. 32.1 g/dL (32.0-36.0); Mean Corpuscular Volume 75.8 fL (80.0-100.0); Monocytes % (auto) 5.7 % (0.0-12.0); Neutrophils # (auto) 5.5 10 ^3/uL (1.6-8.6); Neutrophils % (auto) 82.4 % (37.0-80.0); Red Blood Cells 3.85 10^6/uL (4.0-5.20); White Blood Cell 6.7 10^3/uL (4.4-10.8)
[2020-10-06 06:06] LABS: Red Cell Distribution Width 21.7 % (11.8-14.3)
[2020-10-06 06:15] LABS: Potassium 4.3 mmol/L (3.5-5.1)
[2020-10-06 06:22] LABS: Albumin 2.4 g/dL (3.4-5.0); BUN/Creatinine Ratio 14.8; Bilirubin, Total 0.2 mg/dL (0.2-1.0); Calcium 8.9 mg/dL (8.5-10.1); Total Protein 7.3 g/dL (6.4-8.2)
[2020-10-06 08:23] VITALS: BP 117/62
[2020-10-06] MEDS: SODIUM CHLOR 0.9% PF (SALINE LOCK) 10ML VIAL/SYR IV SCH ×2 (10:00→22:30)
[2020-10-06] MEDS: ASPirin-EC 81 mg tab PO SCH (10:41)
[2020-10-06] MEDS: busPIRone HCL 10 MG TAB PO SCH (10:43)
[2020-10-06] MEDS: ENOXAPARIN SOD 40 MG/0.4 ML SYRINGE SC SCH (10:43)
[2020-10-06] MEDS: FLUCONAZOLE 100 MG TAB PO SCH (10:43)
[2020-10-06] MEDS: CITALOPRAM HYDROBR 20 MG TAB PO SCH (10:43)
[2020-10-06] MEDS: PANTOPRAZOLE 40 MG/10 ML VIAL INJ IV SCH ×2 (10:44→22:13)
[2020-10-06] MEDS: SODIUM CHLORIDE 0.9% 1,000 ML IV SCH (12:04)
[2020-10-06 12:49] VITALS: BP 147/75
[2020-10-06 17:01] VITALS: BP 123/52
[2020-10-06 22:00] VITALS: BP 112/64
[2020-10-06] MEDS: RAMIPRIL 2.5 MG CAP PO SCH (22:15)
[2020-10-06] MEDS: INSULIN LANTUS (GLARGINE) 1 /0.01ml (100units/ml) SC SCH (22:28)
[2020-10-07] MEDS: InsuLIN REG 1unit/0.01ml Soln (100units/ml) SC SCH ×4 (00:59→17:53)
[2020-10-07] MEDS: SODIUM CHLORIDE 0.9% 1,000 ML IV SCH ×2 (02:28→16:36)
[2020-10-07] MEDS: HYDROmorphone HCL 2 MG/ML VL IV PRN ×2 (02:29→09:33)
[2020-10-07 05:00] VITALS: BP 90/54
[2020-10-07 05:40] LABS: Basophils # (auto) 0.1 10 ^3/uL (0-0.2); Eosinophils # (auto) 0.1 10 ^3/uL (0-0.8); Lymphocytes # (auto) 1.9 10 ^3/uL (0.4-5.4); Monocytes # (auto) 0.5 10 ^3/uL (0-1.3); Neutrophils # (auto) 2.8 10 ^3/uL (1.6-8.6); Nucleated Red Blood Cells % 0.1 %
[2020-10-07 05:44] LABS: Basophils % (auto) 1.2 % (0.0-2.0); Hematocrit 29.3 % (36.0-46.0); Hemoglobin 9.4 g/dL (12.2-16.2); Lymphocytes % (auto) 34.7 % (10.0-50.0); Mean Corpuscular Hemoglobin 24.7 pg (28.0-32.0); Mean Corpuscular Hgb Conc. 32.2 g/dL (32.0-36.0); Mean Corpuscular Volume 76.6 fL (80.0-100.0); Monocytes % (auto) 9.3 % (0.0-12.0); Neutrophils % (auto) 52.8 % (37.0-80.0); Red Blood Cells 3.82 10^6/uL (4.0-5.20); White Blood Cell 5.3 10^3/uL (4.4-10.8)
[2020-10-07 06:01] LABS: Albumin 2.5 g/dL (3.4-5.0); Calcium 9.1 mg/dL (8.5-10.1); Potassium 4.7 mmol/L (3.5-5.1)
[2020-10-07 06:03] LABS: BUN/Creatinine Ratio 17.4; Bilirubin, Total 0.1 mg/dL (0.2-1.0); Total Protein 7.2 g/dL (6.4-8.2)
[2020-10-07 06:05] LABS: Red Cell Distribution Width 22.2 % (11.8-14.3)
[2020-10-07] MEDS: ACCU-CHEK COMFORT CURVE STRIP VI SCH ×4 (06:14→17:30)
[2020-10-07] MEDS: BETHANECHOL CHLORIDE 50 MG PO SCH ×2 (07:04→14:43)
[2020-10-07] MEDS: SUCRALFATE 1 GM TAB PO SCH ×2 (07:05→14:43)
[2020-10-07 09:00] VITALS: BP 106/60
[2020-10-07] MEDS: PANTOPRAZOLE 40 MG/10 ML VIAL INJ IV SCH (09:32)
[2020-10-07] MEDS: CITALOPRAM HYDROBR 20 MG TAB PO SCH (09:32)
[2020-10-07] MEDS: FLUCONAZOLE 100 MG TAB PO SCH (09:32)
[2020-10-07] MEDS: busPIRone HCL 10 MG TAB PO SCH (09:32)
[2020-10-07] MEDS: ASPirin-EC 81 mg tab PO SCH (09:32)
[2020-10-07] MEDS: ENOXAPARIN SOD 40 MG/0.4 ML SYRINGE SC SCH (09:33)
[2020-10-07] MEDS: SODIUM CHLOR 0.9% PF (SALINE LOCK) 10ML VIAL/SYR IV SCH (10:00)
[2020-10-07 13:00] VITALS: BP 108/59
[2020-10-07] MEDS: VANCOMYCIN 1GM/250ML 250 ML IV SCH (13:07)
[2020-10-07] MEDS: HYDROcodone-ACET 10/325MG TAB PO PRN ×2 (13:20→18:20)
[2020-10-07 17:00] VITALS: BP 123/70
[2020-10-07] MEDS ORDERED: PROMETHAZINE HCL 25 MG/ML 1ML IV PRN (18:45)
[2020-12-02] MEDS ORDERED: FLU01T PO (17:40)
[2020-12-02] MEDS ORDERED: FLUC200T50 PO (17:40)
[2020-12-02] MEDS ORDERED: SITA100T7 PO (17:40)
[2020-12-02] MEDS ORDERED: GLUC1KIT IJ (17:40)
[2020-12-02] MEDS ORDERED: MID10T PO (17:40)
[2020-12-02] MEDS ORDERED: LORA-664 PO (17:40)
[2020-12-02] MEDS ORDERED: NYS5LQ MT (17:40)
[2020-12-02] MEDS ORDERED: METF-370 PO (17:40)
== END 2020-10-07 20:53 | disposition home health service (06) | DRG 628 ==
LOC: ER 10:27 → TELE 10:28 → DOU IN ICU 22:57 → TELE-WESTW 09-30 11:55
PROVIDERS: ADMIT Internal Medicine; ATTEND Internal Medicine
PROC: 05HB33Z Insertion of Infusion Device into Right Basilic Vein, Percutaneous Approach (ICD-10-PCS; 2020-09-27)
PROC: B54MZZA Ultrasonography of Right Upper Extremity Veins, Guidance (ICD-10-PCS; 2020-09-27)
PROC: 05HB33Z Insertion of Infusion Device into Right Basilic Vein, Percutaneous Approach (ICD-10-PCS; 2020-09-28)
PROC: B54MZZA Ultrasonography of Right Upper Extremity Veins, Guidance (ICD-10-PCS; 2020-09-28)
PROC: 30233N1 Transfusion of Nonautologous Red Blood Cells into Peripheral Vein, Percutaneous Approach (ICD-10-PCS; 2020-09-28)
PROC: 3E0G8GC Introduction of Other Therapeutic Substance into Upper GI, Via Natural or Artificial Opening Endoscopic (ICD-10-PCS; 2020-09-29)
PROC: 0DB38ZX Excision of Lower Esophagus, Via Natural or Artificial Opening Endoscopic, Diagnostic (ICD-10-PCS; 2020-09-29)
PROC: 0DB68ZX Excision of Stomach, Via Natural or Artificial Opening Endoscopic, Diagnostic (ICD-10-PCS; 2020-09-29)
PROC: 0QBH0ZZ Excision of Left Tibia, Open Approach (ICD-10-PCS; 2020-10-05)
PROC: 0QBM0ZZ Excision of Left Tarsal, Open Approach (ICD-10-PCS; 2020-10-05)
PROC: 0QBK0ZZ Excision of Left Fibula, Open Approach (ICD-10-PCS; principal; 2020-10-05 07:37)
DX: E11.69 Type 2 diabetes mellitus with other specified complication (principal); E43 Unspecified severe protein-calorie malnutrition; L03.116 Cellulitis of left lower limb; M86.8X7 Other osteomyelitis, ankle and foot; B37.81 Candidal esophagitis; S91.002A Unspecified open wound, left ankle, initial encounter; E11.621 Type 2 diabetes mellitus with foot ulcer; E11.65 Type 2 diabetes mellitus with hyperglycemia; K29.70 Gastritis, unspecified, without bleeding; E11.51 Type 2 diabetes mellitus with diabetic peripheral angiopathy without gangrene; K21.9 Gastro-esophageal reflux disease without esophagitis; K22.0 Achalasia of cardia; R13.10 Dysphagia, unspecified; Z20.822 Contact with and (suspected) exposure to COVID-19; D64.9 Anemia, unspecified; K44.9 Diaphragmatic hernia without obstruction or gangrene; L97.529 Non-pressure chronic ulcer of other part of left foot with unspecified severity; I10 Essential (primary) hypertension; J45.909 Unspecified asthma, uncomplicated; A49.02 Methicillin resistant Staphylococcus aureus infection, unspecified site; Z88.6 Allergy status to analgesic agent; Z88.8 Allergy status to other drugs, medicaments and biological substances; Z91.018 Allergy to other foods; Z91.19 Patient's noncompliance with other medical treatment and regimen; Z68.30 Body mass index [BMI] 30.0-30.9, adult; X58.XXXA Exposure to other specified factors, initial encounter; Y93.89 Activity, other specified; Y92.89 Other specified places as the place of occurrence of the external cause; Y99.8 Other external cause status
CPT/HCPCS: 36415; 36569; 43239; 71045; 73600; 73700; 80053; 80202; 81001; 82565; 82962; 84484; 85025; 85610; 85730; 86850; 86900; 86901; 86920; 87070; 87075; 87077; 87081; 87186; 87205; 87426; 93005; 96361; 96365; 96375; C9113; G0378; J0690; J1100; J1815; J2250; J2405; J2543; J2704

== ENCOUNTER 2020-12-07 06:42 | Day surgery (SDC) | payer MEDICARE, BC ==
[2020-12-02 12:31] LABS: Basophils # (auto) 0.1 10 ^3/uL (0-0.2); Basophils % (auto) 0.8 % (0.0-2.0); Eosinophils # (auto) 0.4 10 ^3/uL (0-0.8); Eosinophils % (auto) 3.9 % (0.0-7.0); Hematocrit 32.1 % (36.0-46.0); Hemoglobin 10.1 g/dL (12.2-16.2); Lymphocytes # (auto) 1.2 10 ^3/uL (0.4-5.4); Lymphocytes % (auto) 12.2 % (10.0-50.0); Mean Corpuscular Hemoglobin 27.2 pg (28.0-32.0); Mean Corpuscular Hgb Conc. 31.5 g/dL (32.0-36.0); Mean Corpuscular Volume 86.2 fL (80.0-100.0); Monocytes # (auto) 0.8 10 ^3/uL (0-1.3); Monocytes % (auto) 7.8 % (0.0-12.0); Neutrophils # (auto) 7.4 10 ^3/uL (1.6-8.6); Neutrophils % (auto) 75.3 % (37.0-80.0); Nucleated Red Blood Cells % 0.1 %; Platelet Count (auto) 205 10^3/uL (140-450); Red Blood Cells 3.72 10^6/uL (4.0-5.20); White Blood Cell 9.9 10^3/uL (4.4-10.8)
[2020-12-02 12:37] LABS: Red Cell Distribution Width 30.4 % (11.8-14.3)
[2020-12-02 12:39] LABS: INR 0.97 (0.9-1.15); Partial Thromboplastin Time 26.5 sec (23.0-31.2)
[2020-12-02 12:57] LABS: Urine Bacteria MANY /hpf (None Seen); Urine Blood 2+ /uL (Negative); Urine Specific Gravity 1.023 (1.001-1.035); Urine WBC 872 /hpf (0 - 5); Urine WBC Clumps PRESENT /hpf (None Seen)
[2020-12-02 13:29] LABS: Calcium 9.8 mg/dL (8.5-10.1); Potassium 4.3 mmol/L (3.5-5.1)
[2020-12-02 13:39] LABS: Albumin 3.4 g/dL (3.4-5.0); Bilirubin, Total 0.6 mg/dL (0.2-1.0); Total Protein 7.4 g/dL (6.4-8.2)
[~2020-12-07] VITALS: Ht 165.1 cm; Wt 79.4 kg
[~2020-12-07 06:42] MED LIST changes: +ASPI-231 PO; -ASPI1TAB20 PO; +FLU01T PO; +FLUC200T50 PO; +GLUC1KIT IJ; +LORA-664 PO; +MID10T PO; +NYS5LQ MT
[2020-12-07] MEDS ORDERED: ceFAZolin 1GM VL ONE (07:09)
[2020-12-07] MEDS ORDERED: ceFAZolin 1GM/50ML 50 ML IV ONE ×2 (07:34→08:33)
[2020-12-07] MEDS ORDERED: MORPHINE SULFATE 4 MG/ML SYR/VIAL IV PRN (08:45)
[2020-12-07] MEDS ORDERED: MIDAZOLAM HCL 1MG/1ML-2 ML VIAL IV PRN (08:45)
[2020-12-07] MEDS ORDERED: LABETALOL HCL 5 MG/ML 4ML SYRINGE IV PRN (08:45)
[2020-12-07] MEDS ORDERED: ONDANSETRON HCL 4 MG/2 ML VIAL IV PRN (08:45)
[2020-12-07] MEDS ORDERED: ePHEDrine SULFATE 50 MG/ML AMP IV PRN (08:45)
[2020-12-07] MEDS ORDERED: ACCU-CHEK COMFORT CURVE STRIP VI ONE (08:45)
[2020-12-07] MEDS ORDERED: fentaNYL CITRATE 100 MCG/2 ML VL ONE (09:03)
[2020-12-07] MEDS ORDERED: MEPERIDINE HCL (25 MG/ML) 1ML VIAL ONE (09:03)
[2020-12-07] MEDS ORDERED: MIDAZOLAM HCL 1MG/1ML-2 ML VIAL ONE (09:05)
[2020-12-07] MEDS ORDERED: DexAMETHasone SOD PHOS 10MG/1ML VIAL INJ ONE (09:10)
[2020-12-07] MEDS ORDERED: PROPOFOL 10 MG/ML 20 ML IV ONE (09:10)
[2020-12-07] MEDS: HYDROmorphone HCL 2 MG/ML VL IV PRN ×2 (09:27→09:50)
[2020-12-07 09:55] VITALS: BP 135/76
== END 2020-12-07 10:05 | disposition home or self-care (01) ==
LOC: SUR 06:42
PROVIDERS: ATTEND Podiatrist Foot & Ankle Surgery
DX: S91.002A Unspecified open wound, left ankle, initial encounter (principal); M25.572 Pain in left ankle and joints of left foot; K44.9 Diaphragmatic hernia without obstruction or gangrene; G40.909 Epilepsy, unspecified, not intractable, without status epilepticus; D64.9 Anemia, unspecified; E11.9 Type 2 diabetes mellitus without complications; Z88.6 Allergy status to analgesic agent; E66.01 Morbid (severe) obesity due to excess calories; J44.9 Chronic obstructive pulmonary disease, unspecified; I25.10 Atherosclerotic heart disease of native coronary artery without angina pectoris; N80.8 Other endometriosis; Z91.018 Allergy to other foods; Z20.822 Contact with and (suspected) exposure to COVID-19; Z98.890 Other specified postprocedural states; Z98.51 Tubal ligation status; Z90.710 Acquired absence of both cervix and uterus; Z90.721 Acquired absence of ovaries, unilateral; Z68.29 Body mass index [BMI] 29.0-29.9, adult; X58.XXXA Exposure to other specified factors, initial encounter; Y93.89 Activity, other specified; Y92.89 Other specified places as the place of occurrence of the external cause; Y99.8 Other external cause status
CPT/HCPCS: 15004; 15275; 36415; 80053; 81001; 82962; 85025; 85610; 85730; 87070; 87075; 87205; 88305; C1887; J0690; J1100; J1170; J2175; J2250; J2704; J3010; Q4126; U0003

== ENCOUNTER 2021-02-17 17:04 | Emergency (ER) | payer MEDICARE, BC, OTHER ==
[~2021-02-17] VITALS: Ht 165.1 cm; Wt 79.4 kg
[~2021-02-17 17:04] MED LIST changes: -ASPI-231 PO; +ASPI1TAB20 PO
[2021-02-17 17:21] VITALS: BP 119/57
[2021-02-17] MEDS ORDERED: ACETAMINOPHEN 325 MG TAB PO ONE (21:00)
== END 2021-02-17 21:34 | disposition home or self-care (01) ==
LOC: ER 17:04
DX: S39.012A Strain of muscle, fascia and tendon of lower back, initial encounter (principal); S70.12XA Contusion of left thigh, initial encounter; M50.222 Other cervical disc displacement at C5-C6 level; M51.26 Other intervertebral disc displacement, lumbar region; R51.9 Headache, unspecified; J44.9 Chronic obstructive pulmonary disease, unspecified; E11.9 Type 2 diabetes mellitus without complications; I10 Essential (primary) hypertension; Z88.6 Allergy status to analgesic agent; Z88.1 Allergy status to other antibiotic agents; Z79.899 Other long term (current) drug therapy; Z79.4 Long term (current) use of insulin; Z79.82 Long term (current) use of aspirin; Z98.890 Other specified postprocedural states; Z90.49 Acquired absence of other specified parts of digestive tract; V49.59XA Passenger injured in collision with other motor vehicles in traffic accident, initial encounter; Y93.89 Activity, other specified; Y92.488 Other paved roadways as the place of occurrence of the external cause; Y99.8 Other external cause status
CPT/HCPCS: 70450; 72125; 72131; 73700

== ENCOUNTER 2021-02-22 07:08 | Inpatient (IN) | payer MEDICARE, BC ==
[2021-02-20 14:20] LABS: Urine Bacteria NONE SEEN /hpf (None Seen); Urine Blood Negative /uL (Negative); Urine Specific Gravity 1.017 (1.001-1.035); Urine WBC 6 /hpf (0 - 5)
[2021-02-20 14:22] LABS: Basophils # (auto) 0.1 10 ^3/uL (0-0.2); Eosinophils # (auto) 0.2 10 ^3/uL (0-0.8); Eosinophils % (auto) 2.2 % (0.0-7.0); Mean Corpuscular Volume 81.3 fL (80.0-100.0); Monocytes # (auto) 0.5 10 ^3/uL (0-1.3)
[2021-02-20 14:24] LABS: Basophils % (auto) 0.8 % (0.0-2.0); Hemoglobin 10.3 g/dL (12.2-16.2); Lymphocytes # (auto) 1.6 10 ^3/uL (0.4-5.4); Lymphocytes % (auto) 21.2 % (10.0-50.0); Mean Corpuscular Hemoglobin 25.5 pg (28.0-32.0); Mean Corpuscular Hgb Conc. 31.4 g/dL (32.0-36.0); Monocytes % (auto) 6.8 % (0.0-12.0); Neutrophils # (auto) 5.2 10 ^3/uL (1.6-8.6); Red Blood Cells 4.05 10^6/uL (4.0-5.20); White Blood Cell 7.5 10^3/uL (4.4-10.8)
[2021-02-20 14:30] LABS: Red Cell Distribution Width 20.2 % (11.8-14.3)
[2021-02-20 14:46] LABS: Albumin 3.1 g/dL (3.4-5.0); Calcium 8.8 mg/dL (8.5-10.1); Potassium 4.2 mmol/L (3.5-5.1)
[2021-02-20 14:49] LABS: BUN/Creatinine Ratio 17.8; Bilirubin, Total 0.2 mg/dL (0.2-1.0); Total Protein 7.5 g/dL (6.4-8.2)
[~2021-02-22] VITALS: Ht 165.1 cm; Wt 79.3 kg
[~2021-02-22 07:08] MED LIST changes: -FLU01T PO; -FLUC200T50 PO; -MID10T PO; -NYS5LQ MT
[2021-02-22] MEDS ORDERED: fentaNYL CITRATE 100 MCG/2 ML VL ONE (08:44)
[2021-02-22] MEDS ORDERED: BUPIVACAINE/DEXTROSE MPF 0.75% 2 ML AMP IT ONE (08:44)
[2021-02-22] MEDS ORDERED: ONDANSETRON HCL 4 MG/2 ML VIAL ONE (08:44)
[2021-02-22] MEDS ORDERED: PROPOFOL 10 MG/ML 20 ML IV ONE ×3 (08:44→11:46)
[2021-02-22] MEDS ORDERED: SODIUM CHLORIDE LOCK 10 ML ONE (08:44)
[2021-02-22] MEDS ORDERED: MIDAZOLAM HCL 2MG/2ML 2ml VIAL (1mg/ml) ONE (08:44)
[2021-02-22] MEDS ORDERED: KETAMINE HCL 10 ML ONE (08:44)
[2021-02-22] MEDS ORDERED: ceFAZolin 1GM/50ML 100 ML IV ONE (08:52)
[2021-02-22] MEDS ORDERED: TETRACAINE 1% INJ 2 ML VIAL IJ ONE (09:00)
[2021-02-22] MEDS ORDERED: ROPIVACAINE 0.5% (5MG/ML) 20ML AMPULE IJ ONE (09:00)
[2021-02-22] MEDS ORDERED: EPINEPHrine HCL 1 MG/1 ML AMP ONE (09:03)
[2021-02-22] MEDS ORDERED: LIDOCAINE 2% (LOCAL ANESTH.) PF 5ml SDV ONE (11:03)
[2021-02-22] MEDS ORDERED: NEOMYCIN-BACITRACIN-POLYM 15GM TOP OINT TOP ONE (12:17)
[2021-02-22] MEDS ORDERED: METOCLOPRAMIDE HCL 5MG/ml INJ 2ml VIAL IV PRN (13:30)
[2021-02-22] MEDS ORDERED: MORPHINE SULFATE 4 MG/ML SYR/VIAL IV PRN (13:30)
[2021-02-22] MEDS ORDERED: ACCU-CHEK COMFORT CURVE STRIP VI ONE (13:30)
[2021-02-22] MEDS ORDERED: HYDROmorphone HCL 2 MG/ML VL ONE (13:31)
[2021-02-22] MEDS: HYDROmorphone HCL 2 MG/ML VL IV PRN ×2 (13:35→13:49)
[2021-02-22] MEDS: ceFAZolin 1GM/50ML 50 ML IV SCH ×2 (14:00→21:21)
[2021-02-22] MEDS ORDERED: RAMIPRIL 2.5 MG CAP PO ONE (14:00)
[2021-02-22] MEDS ORDERED: ONDANSETRON HCL 4 MG/2 ML VIAL IV PRN (14:00)
[2021-02-22] MEDS ORDERED: DEXTROSE (50%) 50ML SYRG IV PRN (14:00)
[2021-02-22] MEDS: MORPHINE SULFATE INJECTION 2 MG/ML SYRG IV PRN ×2 (15:03→19:55)
[2021-02-22] MEDS: HYDROcodone-ACET 5/325MG TAB PO PRN (15:03)
[2021-02-22] MEDS: ACCU-CHEK COMFORT CURVE STRIP VI SCH ×2 (15:05→21:21)
[2021-02-22] MEDS: InsuLIN REG 1unit/0.01ml Soln (100units/ml) SC SCH (15:09)
[2021-02-22 16:02] VITALS: BP 143/70
[2021-02-22] MEDS: MIDODRINE HCL 10 MG TAB PO SCH (18:31)
[2021-02-22] MEDS: ALBUTEROL SULF 2.5 MG/0.5ML(0.5%) NEB SOLN NEB SCH (19:37)
[2021-02-22 19:42] VITALS: BP 143/70
[2021-02-22 19:50] VITALS: BP 102/62
[2021-02-22] MEDS: busPIRone HCL 10 MG TAB PO SCH (21:21)
[2021-02-22] MEDS: FAMOTIDINE 20 MG TAB PO SCH (21:21)
[2021-02-22 22:00] VITALS: BP 104/54
[2021-02-22] MEDS ORDERED: InsuLIN REG 1unit/0.01ml Soln (100units/ml) SC SCH (22:00)
[2021-02-23] MEDS: MORPHINE SULFATE INJECTION 2 MG/ML SYRG IV PRN ×3 (01:15→11:30)
[2021-02-23] MEDS: HYDROcodone-ACET 5/325MG TAB PO PRN ×2 (03:45→08:40)
[2021-02-23] MEDS: ALBUTEROL SULF 2.5 MG/0.5ML(0.5%) NEB SOLN NEB SCH ×2 (04:25→11:56)
[2021-02-23 05:16] VITALS: BP 146/81
[2021-02-23] MEDS: ceFAZolin 1GM/50ML 50 ML IV SCH (05:27)
[2021-02-23] MEDS: MIDODRINE HCL 10 MG TAB PO SCH ×2 (05:27→12:38)
[2021-02-23] MEDS: ACCU-CHEK COMFORT CURVE STRIP VI SCH ×2 (06:08→11:30)
[2021-02-23] MEDS: InsuLIN REG 1unit/0.01ml Soln (100units/ml) SC SCH ×2 (06:08→11:52)
[2021-02-23 06:50] LABS: Basophils # (auto) 0 10 ^3/uL (0-0.2); Eosinophils # (auto) 0.1 10 ^3/uL (0-0.8); Hematocrit 28.6 % (36.0-46.0); Lymphocytes # (auto) 1.2 10 ^3/uL (0.4-5.4); Mean Corpuscular Hemoglobin 25.3 pg (28.0-32.0); Monocytes # (auto) 0.7 10 ^3/uL (0-1.3); Red Cell Distribution Width 19.7 % (11.8-14.3); White Blood Cell 11.9 10^3/uL (4.4-10.8)
[2021-02-23 06:52] LABS: Basophils % (auto) 0.3 % (0.0-2.0); Eosinophils % (auto) 0.4 % (0.0-7.0); Lymphocytes % (auto) 9.9 % (10.0-50.0); Mean Corpuscular Hgb Conc. 31.4 g/dL (32.0-36.0); Mean Corpuscular Volume 80.6 fL (80.0-100.0); Monocytes % (auto) 5.6 % (0.0-12.0); Neutrophils % (auto) 83.8 % (37.0-80.0); Red Blood Cells 3.55 10^6/uL (4.0-5.20)
[2021-02-23 07:09] LABS: Potassium 4.1 mmol/L (3.5-5.1)
[2021-02-23 07:14] LABS: BUN/Creatinine Ratio 17.1; Calcium 8.1 mg/dL (8.5-10.1)
[2021-02-23 08:00] VITALS: BP 106/59
[2021-02-23] MEDS: busPIRone HCL 10 MG TAB PO SCH (08:38)
[2021-02-23] MEDS: FAMOTIDINE 20 MG TAB PO SCH (08:39)
[2021-02-23 09:22] VITALS: BP 106/59
[2021-02-23] MEDS ORDERED: CITALOPRAM HYDROBR 20 MG TAB PO SCH (10:00)
[2021-02-23] MEDS ORDERED: RAMIPRIL 2.5 MG CAP PO SCH (10:00)
[2021-02-23 11:55] VITALS: BP 106/59
[2021-02-23 13:30] VITALS: BP 106/62
== END 2021-02-23 13:20 | disposition home or self-care (01) | DRG 494 ==
LOC: SUR 07:08 → TELE 13:49 → EAST 15:45
PROVIDERS: ADMIT Podiatrist Foot & Ankle Surgery; ATTEND Internal Medicine
PROC: 0SGJ04Z Fusion of Left Tarsal Joint with Internal Fixation Device, Open Approach (ICD-10-PCS; 2021-02-22)
PROC: 0SGJ04Z Fusion of Left Tarsal Joint with Internal Fixation Device, Open Approach (ICD-10-PCS; 2021-02-22)
PROC: 0SGJ04Z Fusion of Left Tarsal Joint with Internal Fixation Device, Open Approach (ICD-10-PCS; 2021-02-22)
PROC: 0SGG04Z Fusion of Left Ankle Joint with Internal Fixation Device, Open Approach (ICD-10-PCS; principal; 2021-02-22 09:13)
DX: M19.072 Primary osteoarthritis, left ankle and foot (principal); E11.9 Type 2 diabetes mellitus without complications; J44.9 Chronic obstructive pulmonary disease, unspecified; F32.9 Major depressive disorder, single episode, unspecified; E78.5 Hyperlipidemia, unspecified; G90.8 Other disorders of autonomic nervous system; F41.9 Anxiety disorder, unspecified; I10 Essential (primary) hypertension; Z88.6 Allergy status to analgesic agent; Z88.1 Allergy status to other antibiotic agents; Z79.899 Other long term (current) drug therapy; Z91.018 Allergy to other foods
CPT/HCPCS: 36415; 73600; 76001; 80048; 80053; 81001; 82962; 85025; 94640; G0378; J0171; J0690; J1815; J2001; J2250; J2405; J2704

== ENCOUNTER 2021-09-22 12:13 | Inpatient (IN) | payer MEDICARE, BC, MEDICAID ==
[~2021-09-22] VITALS: Ht 162.6 cm; Wt 85.0 kg
[~2021-09-22 12:13] MED LIST changes: -PRAV20TA3 OR; +PRAV20TA3 PO
[2021-09-22] MEDS ORDERED: PROCHLORPERAZINE EDISYLATE 5 MG/ML 2ML VIAL IV ONE (12:45)
[2021-09-22] MEDS ORDERED: PANTOPRAZOLE 40 MG/10 ML VIAL INJ IV ONE (12:45)
[2021-09-22] MEDS ORDERED: MORPHINE SULFATE 4 MG/ML SYR/VIAL IV ONE (12:45)
[2021-09-22] MEDS ORDERED: SODIUM CHLORIDE 0.9% 1,000 ML IVB ONE (12:45)
[2021-09-22 13:15] LABS: Basophils # (auto) 0.1 10 ^3/uL (0-0.2); Eosinophils # (auto) 0 10 ^3/uL (0-0.8); Hemoglobin 12.9 g/dL (12.2-16.2); Lymphocytes # (auto) 0.7 10 ^3/uL (0.4-5.4); Lymphocytes % (auto) 5.5 % (10.0-50.0); Mean Corpuscular Hemoglobin 26.5 pg (28.0-32.0); Mean Corpuscular Hgb Conc. 30.6 g/dL (32.0-36.0); Neutrophils # (auto) 10.2 10 ^3/uL (1.6-8.6); White Blood Cell 11.8 10^3/uL (4.4-10.8)
[2021-09-22 13:26] LABS: Hematocrit 42.3 % (36.0-46.0); Mean Corpuscular Volume 86.6 fL (80.0-100.0); Monocytes # (auto) 0.9 10 ^3/uL (0-1.3); Monocytes % (auto) 7.4 % (0.0-12.0); Neutrophils % (auto) 86.1 % (37.0-80.0); Nucleated Red Blood Cells % 0.1 %; Red Blood Cells 4.88 10^6/uL (4.0-5.20); Red Cell Distribution Width 17.2 % (11.8-14.3)
[2021-09-22 13:31] LABS: Albumin 2.8 g/dL (3.4-5.0); Calcium 9.5 mg/dL (8.5-10.1); Potassium 5.3 mmol/L (3.5-5.1)
[2021-09-22 13:34] LABS: Total Protein 7.5 g/dL (6.4-8.2)
[2021-09-22 13:39] LABS: Bilirubin, Total 0.5 mg/dL (0.2-1.0)
[2021-09-22] MEDS: ACCU-CHEK COMFORT CURVE STRIP VI SCH ×6 (14:00→22:49)
[2021-09-22 14:07] LABS: BUN/Creatinine Ratio 28.9
[2021-09-22] MEDS ORDERED: INSULIN LANTUS (GLARGINE) 1 /0.01ml (100units/ml) SC ONE (14:15)
[2021-09-22] MEDS ORDERED: DEXTROSE (50%) 50ML SYRG IV PRN ×2 (14:15→14:45)
[2021-09-22] MEDS ORDERED: InsuLIN REG 1unit/0.01ml Soln (100units/ml) IV ONE (14:15)
[2021-09-22] MEDS ORDERED: DOCUSATE SOD 100 MG CAP PO PRN (14:45)
[2021-09-22] MEDS ORDERED: D5W/SOD CHLO 0.9% 1,000 ML IV SCH (14:45)
[2021-09-22] MEDS ORDERED: ACETAMINOPHEN 325 MG TAB PO PRN (14:45)
[2021-09-22] MEDS ORDERED: NITROGLYCERIN 0.4 MG SL TAB SL PRN (14:45)
[2021-09-22] MEDS: InsuLIN R (HUMAN) 100 UNITS in SODIUM CHL 0.9% 99 ML IV SCH ×2 (15:37→22:49)
[2021-09-22] MEDS ORDERED: ACCU-CHEK COMFORT CURVE STRIP VI SCH (16:00)
[2021-09-22] MEDS ORDERED: InsuLIN REG 1unit/0.01ml Soln (100units/ml) SC SCH (16:00)
[2021-09-22] MEDS: SODIUM CHLORIDE 0.9% 1,000 ML IV SCH (16:41)
[2021-09-22] MEDS ORDERED: SODIUM BICARBONATE 50ML VIAL 50 ML in SOD CHL 0.45% 1,000 ML IV ONE (19:30)
[2021-09-22] MEDS ORDERED: SODIUM BICARBONATE 8.4 % INJ 50ML VIAL IV ONE (20:00)
[2021-09-22 22:00] VITALS: BP 116/66
[2021-09-22] MEDS: FAMOTIDINE (10MG/ML) 2ML VL IV SCH (22:00)
[2021-09-22] MEDS: MORPHINE SULFATE INJECTION 2 MG/ML SYRG IV PRN (22:48)
[2021-09-23] VITALS (10 sets, daily range): BP systolic 92–134; BP diastolic 47–74
[2021-09-23] MEDS: InsuLIN R (HUMAN) 100 UNITS in SODIUM CHL 0.9% 99 ML IV SCH ×6 (00:18→07:56)
[2021-09-23] MEDS: ACCU-CHEK COMFORT CURVE STRIP VI SCH ×13 (00:25→23:43)
[2021-09-23 02:40] LABS: Basophils # (auto) 0 10 ^3/uL (0-0.2); Basophils % (auto) 0.4 % (0.0-2.0); Eosinophils # (auto) 0 10 ^3/uL (0-0.8); Red Blood Cells 4.42 10^6/uL (4.0-5.20); Red Cell Distribution Width 16.4 % (11.8-14.3); White Blood Cell 9.1 10^3/uL (4.4-10.8)
[2021-09-23 02:42] LABS: Eosinophils % (auto) 0.5 % (0.0-7.0); Hemoglobin 11.6 g/dL (12.2-16.2); Lymphocytes # (auto) 1.4 10 ^3/uL (0.4-5.4); Lymphocytes % (auto) 15.1 % (10.0-50.0); Mean Corpuscular Hemoglobin 26.2 pg (28.0-32.0); Mean Corpuscular Volume 79.3 fL (80.0-100.0); Monocytes # (auto) 1.1 10 ^3/uL (0-1.3); Monocytes % (auto) 12.4 % (0.0-12.0); Neutrophils # (auto) 6.5 10 ^3/uL (1.6-8.6); Neutrophils % (auto) 71.6 % (37.0-80.0); Nucleated Red Blood Cells % 0.3 %
[2021-09-23] MEDS: MORPHINE SULFATE INJECTION 2 MG/ML SYRG IV PRN ×4 (02:47→21:35)
[2021-09-23 02:58] LABS: Potassium 3.3 mmol/L (3.5-5.1)
[2021-09-23 03:02] LABS: Albumin 2.4 g/dL (3.4-5.0); BUN/Creatinine Ratio 27.8; Calcium 8.6 mg/dL (8.5-10.1)
[2021-09-23 03:05] LABS: Bilirubin, Total 0.3 mg/dL (0.2-1.0); Total Protein 6.4 g/dL (6.4-8.2)
[2021-09-23] MEDS: SODIUM CHLORIDE 0.9% 1,000 ML IV SCH ×3 (05:35→16:18)
[2021-09-23 06:58] LABS: Calcium 8.9 mg/dL (8.5-10.1); Potassium 3.5 mmol/L (3.5-5.1)
[2021-09-23 07:02] LABS: Albumin 2.3 g/dL (3.4-5.0); BUN/Creatinine Ratio 25.8
[2021-09-23 07:04] LABS: Bilirubin, Total 0.2 mg/dL (0.2-1.0); Total Protein 6.4 g/dL (6.4-8.2)
[2021-09-23] MEDS: SUCRALFATE 1 GM/10 ML ORAL SUSP PO SCH ×4 (08:01→21:29)
[2021-09-23] MEDS ORDERED: INSULIN LANTUS (GLARGINE) 1 /0.01ml (100units/ml) SC SCH ×2 (10:00→22:00)
[2021-09-23] MEDS: FAMOTIDINE (10MG/ML) 2ML VL IV SCH ×2 (10:22→21:28)
[2021-09-23] MEDS: ONDANSETRON HCL 4 MG/2 ML VIAL IV PRN ×2 (10:38→15:57)
[2021-09-23] MEDS ORDERED: DEXTROSE (50%) 50ML SYRG IV PRN (11:45)
[2021-09-23] MEDS: InsuLIN REG 1unit/0.01ml Soln (100units/ml) SC SCH ×4 (12:32→23:43)
[2021-09-24] MEDS: ACCU-CHEK COMFORT CURVE STRIP VI SCH ×6 (03:42→23:48)
[2021-09-24] MEDS: InsuLIN REG 1unit/0.01ml Soln (100units/ml) SC SCH ×6 (03:42→23:47)
[2021-09-24] MEDS: MORPHINE SULFATE INJECTION 2 MG/ML SYRG IV PRN ×3 (03:42→18:43)
[2021-09-24 05:12] VITALS: BP 112/62
[2021-09-24 05:54] LABS: Basophils # (auto) 0.1 10 ^3/uL (0-0.2); Basophils % (auto) 0.7 % (0.0-2.0); Eosinophils # (auto) 0.1 10 ^3/uL (0-0.8); Eosinophils % (auto) 1.5 % (0.0-7.0); Hematocrit 31.7 % (36.0-46.0); Hemoglobin 10.4 g/dL (12.2-16.2); Lymphocytes # (auto) 1.4 10 ^3/uL (0.4-5.4); Lymphocytes % (auto) 14.1 % (10.0-50.0); Mean Corpuscular Hemoglobin 26.1 pg (28.0-32.0); Mean Corpuscular Hgb Conc. 32.7 g/dL (32.0-36.0); Mean Corpuscular Volume 79.9 fL (80.0-100.0); Monocytes # (auto) 1.1 10 ^3/uL (0-1.3); Monocytes % (auto) 10.9 % (0.0-12.0); Neutrophils % (auto) 72.8 % (37.0-80.0); Nucleated Red Blood Cells % 0.1 %; Red Blood Cells 3.96 10^6/uL (4.0-5.20); Red Cell Distribution Width 16.4 % (11.8-14.3); White Blood Cell 9.7 10^3/uL (4.4-10.8)
[2021-09-24 06:15] LABS: Calcium 7.6 mg/dL (8.5-10.1); Magnesium 1.7 mg/dL (1.6-2.6); Potassium 3.4 mmol/L (3.5-5.1)
[2021-09-24 06:21] LABS: Albumin 1.9 g/dL (3.4-5.0); BUN/Creatinine Ratio 18.6; Bilirubin, Total 0.8 mg/dL (0.2-1.0); Total Protein 5.4 g/dL (6.4-8.2)
[2021-09-24] MEDS: SUCRALFATE 1 GM/10 ML ORAL SUSP PO SCH ×4 (06:33→21:47)
[2021-09-24] MEDS: ONDANSETRON HCL 4 MG/2 ML VIAL IV PRN ×2 (07:57→18:41)
[2021-09-24] MEDS: SODIUM CHLORIDE 0.9% 1,000 ML IV SCH (08:10)
[2021-09-24 08:42] VITALS: BP 121/67
[2021-09-24] MEDS ORDERED: MAGNESIUM SULFATE 1GM/100ML 100 ML IV ONE (08:45)
[2021-09-24] MEDS ORDERED: POTASSIUM CHL 20 Meq TABLET PO ONE ×2 (08:45→11:30)
[2021-09-24] MEDS: FAMOTIDINE (10MG/ML) 2ML VL IV SCH ×2 (10:22→21:47)
[2021-09-24 12:37] VITALS: BP 131/69
[2021-09-24] MEDS: HYDROcodone-ACET 5/325MG TAB PO PRN ×2 (15:37→21:48)
[2021-09-24 17:00] VITALS: BP 126/62
[2021-09-24 22:00] VITALS: BP 133/82
[2021-09-24] MEDS: INSULIN LANTUS (GLARGINE) 1 /0.01ml (100units/ml) SC SCH (23:47)
[2021-09-25] MEDS: MORPHINE SULFATE INJECTION 2 MG/ML SYRG IV PRN ×3 (01:29→23:15)
[2021-09-25] MEDS: SODIUM CHLORIDE 0.9% 1,000 ML IV SCH (02:20)
[2021-09-25] MEDS: ACCU-CHEK COMFORT CURVE STRIP VI SCH ×5 (03:50→22:36)
[2021-09-25] MEDS: InsuLIN REG 1unit/0.01ml Soln (100units/ml) SC SCH ×5 (03:51→22:35)
[2021-09-25 05:00] VITALS: BP 132/75
[2021-09-25] MEDS: SUCRALFATE 1 GM/10 ML ORAL SUSP PO SCH ×4 (06:16→21:44)
[2021-09-25] MEDS: IPRATROPIUM BROM 0.5 MG/2.5ML INH SOL NEB PRN ×2 (07:20→18:33)
[2021-09-25] MEDS: ALBUTEROL SULF 2.5 MG/0.5ML(0.5%) NEB SOLN NEB PRN ×2 (07:20→18:33)
[2021-09-25 08:30] VITALS: BP 135/72
[2021-09-25] MEDS: FAMOTIDINE (10MG/ML) 2ML VL IV SCH (08:53)
[2021-09-25] MEDS: HYDROcodone-ACET 5/325MG TAB PO PRN ×2 (08:54→13:05)
[2021-09-25] MEDS: ONDANSETRON HCL 4 MG/2 ML VIAL IV PRN ×2 (08:54→13:05)
[2021-09-25 10:51] LABS: Potassium 3.6 mmol/L (3.5-5.1)
[2021-09-25] MEDS ORDERED: LIDO2SOL18 MT (12:57)
[2021-09-25] MEDS ORDERED: FURO20TA3 PO (12:57)
[2021-09-25 13:00] VITALS: BP 130/70
[2021-09-25] MEDS ORDERED: METOCLOPRAMIDE HCL 5MG/ml INJ 2ml VIAL IV PRN (15:15)
[2021-09-25] MEDS ORDERED: DEXTROSE (50%) 50ML SYRG IV PRN (15:15)
[2021-09-25 17:14] VITALS: BP 115/68
[2021-09-25 22:00] VITALS: BP 109/69
[2021-09-25] MEDS: INSULIN LANTUS (GLARGINE) 1 /0.01ml (100units/ml) SC SCH (22:00)
[2021-09-25] MEDS ORDERED: PANTOPRAZOLE 40 MG/10 ML VIAL INJ IV SCH (22:00)
[2021-09-26 05:00] VITALS: BP 141/57
[2021-09-26] MEDS: SUCRALFATE 1 GM/10 ML ORAL SUSP PO SCH ×4 (06:23→21:44)
[2021-09-26] MEDS: ACCU-CHEK COMFORT CURVE STRIP VI SCH ×4 (06:23→21:44)
[2021-09-26] MEDS: InsuLIN REG 1unit/0.01ml Soln (100units/ml) SC SCH ×4 (06:23→21:58)
[2021-09-26] MEDS: MORPHINE SULFATE INJECTION 2 MG/ML SYRG IV PRN (06:24)
[2021-09-26 06:50] LABS: BUN/Creatinine Ratio 7.7; Calcium 8.3 mg/dL (8.5-10.1); Magnesium 2.2 mg/dL (1.6-2.6); Potassium 3.4 mmol/L (3.5-5.1)
[2021-09-26 07:00] LABS: Basophils # (auto) 0 10 ^3/uL (0-0.2); Basophils % (auto) 0.5 % (0.0-2.0); Eosinophils # (auto) 0 10 ^3/uL (0-0.8); Hemoglobin 9.8 g/dL (12.2-16.2); Monocytes # (auto) 0.8 10 ^3/uL (0-1.3); Neutrophils # (auto) 5.4 10 ^3/uL (1.6-8.6); White Blood Cell 7.2 10^3/uL (4.4-10.8)
[2021-09-26 07:02] LABS: Eosinophils % (auto) 0.5 % (0.0-7.0); Hematocrit 29.6 % (36.0-46.0); Lymphocytes % (auto) 13.3 % (10.0-50.0); Mean Corpuscular Hemoglobin 26.1 pg (28.0-32.0); Mean Corpuscular Hgb Conc. 33.2 g/dL (32.0-36.0); Mean Corpuscular Volume 78.6 fL (80.0-100.0); Monocytes % (auto) 11.6 % (0.0-12.0); Neutrophils % (auto) 74.1 % (37.0-80.0); Red Blood Cells 3.77 10^6/uL (4.0-5.20); Red Cell Distribution Width 16.6 % (11.8-14.3)
[2021-09-26 09:15] VITALS: BP 139/74
[2021-09-26] MEDS ORDERED: PANTOPRAZOLE 40 MG TAB PO ONE (10:30)
[2021-09-26 12:13] VITALS: BP 153/77
[2021-09-26] MEDS: HYDROcodone-ACET 5/325MG TAB PO PRN ×2 (12:35→17:36)
[2021-09-26] MEDS ORDERED: METOCLOPRAMIDE HCL 5MG/ml INJ 2ml VIAL IV PRN (14:00)
[2021-09-26] MEDS ORDERED: POTASSIUM EFFERVESENT TAB 25 MEQ PO ONE (14:30)
[2021-09-26] MEDS: NYSTATIN (MOUTH-THROAT) 500,000 UNITS/5 ML SUSP MT SCH ×2 (15:16→21:44)
[2021-09-26 16:28] VITALS: BP 147/76
[2021-09-26 20:24] VITALS: BP 147/76
[2021-09-26 21:44] VITALS: BP 116/70
[2021-09-26] MEDS: METOCLOPRAMIDE HCL 10 MG TAB PO SCH (21:44)
[2021-09-26] MEDS: PANTOPRAZOLE 40 MG TAB PO SCH (21:44)
[2021-09-26] MEDS: INSULIN LANTUS (GLARGINE) 1 /0.01ml (100units/ml) SC SCH (21:59)
[2021-09-27] MEDS: MORPHINE SULFATE INJECTION 2 MG/ML SYRG IV PRN ×5 (00:24→22:13)
[2021-09-27 05:00] VITALS: BP 111/70
[2021-09-27] MEDS: ACCU-CHEK COMFORT CURVE STRIP VI SCH ×3 (06:00→17:51)
[2021-09-27] MEDS: METOCLOPRAMIDE HCL 10 MG TAB PO SCH ×3 (06:00→22:08)
[2021-09-27] MEDS: NYSTATIN (MOUTH-THROAT) 500,000 UNITS/5 ML SUSP MT SCH ×3 (06:00→22:08)
[2021-09-27] MEDS: InsuLIN REG 1unit/0.01ml Soln (100units/ml) SC SCH ×3 (06:48→18:11)
[2021-09-27] MEDS: SUCRALFATE 1 GM/10 ML ORAL SUSP PO SCH ×4 (06:55→22:08)
[2021-09-27 07:04] LABS: Hemoglobin 10.4 g/dL (12.2-16.2)
[2021-09-27 09:00] VITALS: BP 148/79
[2021-09-27] MEDS: PANTOPRAZOLE 40 MG TAB PO SCH ×2 (09:26→22:08)
[2021-09-27] MEDS: HYDROcodone-ACET 5/325MG TAB PO PRN ×2 (09:27→16:35)
[2021-09-27 13:00] VITALS: BP 135/70
[2021-09-27] MEDS ORDERED: cefTRIAXone 1GM/50ML D5W 50 ML IV ONE (13:15)
[2021-09-27] MEDS: CLINDAMYCIN 600MG IV 50 ML IV SCH ×2 (14:18→22:08)
[2021-09-27 17:00] VITALS: BP 154/88
[2021-09-27 22:00] VITALS: BP 131/51
[2021-09-27] MEDS: INSULIN LANTUS (GLARGINE) 1 /0.01ml (100units/ml) SC SCH (22:52)
[2021-09-28] MEDS: ACCU-CHEK COMFORT CURVE STRIP VI SCH ×4 (00:30→18:17)
[2021-09-28] MEDS: MORPHINE SULFATE INJECTION 2 MG/ML SYRG IV PRN ×4 (03:30→18:48)
[2021-09-28] MEDS: InsuLIN REG 1unit/0.01ml Soln (100units/ml) SC SCH ×4 (04:52→18:00)
[2021-09-28 05:00] VITALS: BP 96/53
[2021-09-28] MEDS: METOCLOPRAMIDE HCL 10 MG TAB PO SCH ×3 (05:53→22:08)
[2021-09-28] MEDS: NYSTATIN (MOUTH-THROAT) 500,000 UNITS/5 ML SUSP MT SCH ×3 (05:53→22:08)
[2021-09-28] MEDS: CLINDAMYCIN 600MG IV 50 ML IV SCH ×3 (05:53→22:08)
[2021-09-28] MEDS: SUCRALFATE 1 GM/10 ML ORAL SUSP PO SCH ×4 (06:01→22:08)
[2021-09-28 06:06] LABS: Basophils # (auto) 0 10 ^3/uL (0-0.2); Eosinophils # (auto) 0.1 10 ^3/uL (0-0.8); Lymphocytes # (auto) 1.2 10 ^3/uL (0.4-5.4)
[2021-09-28 06:08] LABS: Basophils % (auto) 0.7 % (0.0-2.0); Hemoglobin 10.3 g/dL (12.2-16.2); Lymphocytes % (auto) 19.1 % (10.0-50.0); Mean Corpuscular Hgb Conc. 33.2 g/dL (32.0-36.0); Mean Corpuscular Volume 78.3 fL (80.0-100.0); Monocytes # (auto) 0.9 10 ^3/uL (0-1.3); Neutrophils # (auto) 3.9 10 ^3/uL (1.6-8.6); Neutrophils % (auto) 63.2 % (37.0-80.0); Nucleated Red Blood Cells % 0.2 %; Red Blood Cells 3.95 10^6/uL (4.0-5.20); Red Cell Distribution Width 16.9 % (11.8-14.3); White Blood Cell 6.1 10^3/uL (4.4-10.8)
[2021-09-28 06:23] LABS: Potassium 3.9 mmol/L (3.5-5.1)
[2021-09-28 06:32] LABS: BUN/Creatinine Ratio 8.6; Calcium 8.7 mg/dL (8.5-10.1)
[2021-09-28 09:00] VITALS: BP 112/62
[2021-09-28] MEDS: PANTOPRAZOLE 40 MG TAB PO SCH ×2 (10:36→22:08)
[2021-09-28] MEDS: cefTRIAXone 1GM/50ML D5W 50 ML IV SCH (10:36)
[2021-09-28 12:50] VITALS: BP 135/81
[2021-09-28 16:45] VITALS: BP 136/88
[2021-09-28 22:00] VITALS: BP 133/67
[2021-09-28] MEDS: INSULIN LANTUS (GLARGINE) 1 /0.01ml (100units/ml) SC SCH (22:08)
[2021-09-29] MEDS: ACCU-CHEK COMFORT CURVE STRIP VI SCH ×4 (00:49→18:23)
[2021-09-29] MEDS: InsuLIN REG 1unit/0.01ml Soln (100units/ml) SC SCH ×4 (00:49→18:23)
[2021-09-29] MEDS: MORPHINE SULFATE INJECTION 2 MG/ML SYRG IV PRN ×4 (03:32→23:56)
[2021-09-29 05:00] VITALS: BP 128/80
[2021-09-29] MEDS: CLINDAMYCIN 600MG IV 50 ML IV SCH ×3 (06:00→22:45)
[2021-09-29] MEDS: NYSTATIN (MOUTH-THROAT) 500,000 UNITS/5 ML SUSP MT SCH ×3 (06:18→22:45)
[2021-09-29] MEDS: METOCLOPRAMIDE HCL 10 MG TAB PO SCH ×3 (06:30→22:45)
[2021-09-29] MEDS: SUCRALFATE 1 GM/10 ML ORAL SUSP PO SCH ×4 (06:30→22:45)
[2021-09-29 08:47] VITALS: BP 140/82
[2021-09-29] MEDS: cefTRIAXone 1GM/50ML D5W 50 ML IV SCH (10:01)
[2021-09-29] MEDS: PANTOPRAZOLE 40 MG TAB PO SCH ×2 (10:02→22:45)
[2021-09-29 13:02] VITALS: BP 139/76
[2021-09-29 17:09] VITALS: BP 134/73
[2021-09-29] MEDS: Pro-Stat SF 30ml Vanilla PO SCH (18:22)
[2021-09-29] MEDS: HYDROcodone-ACET 5/325MG TAB PO PRN (19:57)
[2021-09-29 22:00] VITALS: BP 148/73
[2021-09-29] MEDS: INSULIN LANTUS (GLARGINE) 1 /0.01ml (100units/ml) SC SCH (22:45)
[2021-09-29 23:49] VITALS: BP 148/73
[2021-09-30] MEDS: ACCU-CHEK COMFORT CURVE STRIP VI SCH ×3 (00:10→12:41)
[2021-09-30] MEDS: InsuLIN REG 1unit/0.01ml Soln (100units/ml) SC SCH ×3 (00:11→12:57)
[2021-09-30 05:00] VITALS: BP 108/68
[2021-09-30] MEDS: CLINDAMYCIN 600MG IV 50 ML IV SCH (05:26)
[2021-09-30] MEDS: NYSTATIN (MOUTH-THROAT) 500,000 UNITS/5 ML SUSP MT SCH (05:27)
[2021-09-30] MEDS: METOCLOPRAMIDE HCL 10 MG TAB PO SCH (05:27)
[2021-09-30] MEDS: SUCRALFATE 1 GM/10 ML ORAL SUSP PO SCH ×2 (06:09→12:40)
[2021-09-30] MEDS ORDERED: CLIN300C8 PO (08:28)
[2021-09-30] MEDS ORDERED: HYDR-4902 PO (08:28)
[2021-09-30 09:03] VITALS: BP 123/73
[2021-09-30] MEDS: Pro-Stat SF 30ml Vanilla PO SCH (09:06)
[2021-09-30] MEDS: PANTOPRAZOLE 40 MG TAB PO SCH (10:23)
[2021-09-30] MEDS: cefTRIAXone 1GM/50ML D5W 50 ML IV SCH (10:23)
[2021-09-30] MEDS: HYDROcodone-ACET 5/325MG TAB PO PRN (10:24)
[2021-09-30 11:06] VITALS: BP 123/73
== END 2021-09-30 13:05 | disposition home or self-care (01) | DRG 637 ==
LOC: ER 12:13 → OVERFLOW 14:42 → TELE-CENTR 09-23 14:46
PROVIDERS: ADMIT Nurse Practitioner Family; ATTEND Family Medicine
PROC: 0J953ZX Drainage of Left Neck Subcutaneous Tissue and Fascia, Percutaneous Approach, Diagnostic (ICD-10-PCS; principal; 2021-09-27)
DX: E11.10 Type 2 diabetes mellitus with ketoacidosis without coma (principal); N17.0 Acute kidney failure with tubular necrosis; R65.10 Systemic inflammatory response syndrome (SIRS) of non-infectious origin without acute organ dysfunction; E87.1 Hypo-osmolality and hyponatremia; K12.2 Cellulitis and abscess of mouth; K31.84 Gastroparesis; E86.0 Dehydration; E87.5 Hyperkalemia; E88.09 Other disorders of plasma-protein metabolism, not elsewhere classified; Z20.822 Contact with and (suspected) exposure to COVID-19; K44.9 Diaphragmatic hernia without obstruction or gangrene; K21.9 Gastro-esophageal reflux disease without esophagitis; E78.5 Hyperlipidemia, unspecified; D72.829 Elevated white blood cell count, unspecified; J44.9 Chronic obstructive pulmonary disease, unspecified; E87.6 Hypokalemia; F41.9 Anxiety disorder, unspecified; I10 Essential (primary) hypertension; R00.0 Tachycardia, unspecified; I25.10 Atherosclerotic heart disease of native coronary artery without angina pectoris; I25.2 Old myocardial infarction; Z79.4 Long term (current) use of insulin; Z80.1 Family history of malignant neoplasm of trachea, bronchus and lung; Z80.41 Family history of malignant neoplasm of ovary; Z90.49 Acquired absence of other specified parts of digestive tract; Z90.710 Acquired absence of both cervix and uterus
CPT/HCPCS: 36415; 36600; 70490; 71250; 74176; 76536; 76942; 80048; 80053; 80061; 82306; 82805; 82962; 83036; 83690; 83735; 84132; 84443; 85014; 85018; 85025; 87081; 87426; 93005; 94640; 96361; 96374; 96375; 99291; C9113; G0378; J0696; J1815; J2405; J3490

== ENCOUNTER 2021-11-14 11:43 | Inpatient (IN) | payer MEDICARE, BC, MEDICAID ==
[~2021-11-14] VITALS: Ht 152.4 cm; Wt 91.0 kg
[~2021-11-14 11:43] MED LIST changes: +CLIN300C8 PO; +FURO20TA3 PO; +HYDR-4902 PO; +LIDO2SOL18 MT; -METF-370 PO; -RAMI5CAP40 PO; -RANI-226 PO
[2021-11-14] MEDS ORDERED: ONDANSETRON HCL 4 MG/2 ML VIAL IV ONE (12:15)
[2021-11-14] MEDS ORDERED: MORPHINE SULFATE 4 MG/ML SYR/VIAL IV ONE (12:15)
[2021-11-14] MEDS ORDERED: SODIUM CHLORIDE 0.9% 500 ML IV ONE (12:15)
[2021-11-14 13:19] LABS: Eosinophils # (auto) 0.1 10 ^3/uL (0-0.8); Hemoglobin 9.4 g/dL (12.2-16.2); Neutrophils # (auto) 7.2 10 ^3/uL (1.6-8.6)
[2021-11-14 13:22] LABS: Basophils # (auto) 0.1 10 ^3/uL (0-0.2); Basophils % (auto) 0.6 % (0.0-2.0); Eosinophils % (auto) 0.9 % (0.0-7.0); Hematocrit 29.7 % (36.0-46.0); Lymphocytes # (auto) 1.8 10 ^3/uL (0.4-5.4); Lymphocytes % (auto) 19.1 % (10.0-50.0); Mean Corpuscular Hemoglobin 24.5 pg (28.0-32.0); Mean Corpuscular Hgb Conc. 31.7 g/dL (32.0-36.0); Mean Corpuscular Volume 77.1 fL (80.0-100.0); Monocytes # (auto) 0.4 10 ^3/uL (0-1.3); Monocytes % (auto) 4.6 % (0.0-12.0); Neutrophils % (auto) 74.8 % (37.0-80.0); Nucleated Red Blood Cells % 0.1 %; Red Blood Cells 3.85 10^6/uL (4.0-5.20); Red Cell Distribution Width 18.1 % (11.8-14.3); White Blood Cell 9.6 10^3/uL (4.4-10.8)
[2021-11-14 13:33] LABS: INR 1.04 (0.9-1.15); Partial Thromboplastin Time 29.4 sec (23.6-33.0)
[2021-11-14 14:37] LABS: Albumin 2.7 g/dL (3.4-5.0); Calcium 10.3 mg/dL (8.5-10.1); Potassium 4.3 mmol/L (3.5-5.1)
[2021-11-14 14:40] LABS: Bilirubin, Total 0.4 mg/dL (0.2-1.0); Total Protein 8.2 g/dL (6.4-8.2)
[2021-11-14] MEDS ORDERED: PANTOPRAZOLE 40 MG/10 ML VIAL INJ IV ONE ×2 (17:15→18:15)
[2021-11-14] MEDS ORDERED: ONDANSETRON HCL 4 MG/2 ML VIAL IV PRN ×2 (17:15→18:15)
[2021-11-14] MEDS ORDERED: NITROGLYCERIN 0.4 MG SL TAB SL PRN (17:15)
[2021-11-14] MEDS ORDERED: PIPERACILLIN-TAZO 4.5GM 100 ML IV ONE (17:15)
[2021-11-14] MEDS ORDERED: MORPHINE SULFATE INJECTION 2 MG/ML SYRG IV PRN ×2 (17:15)
[2021-11-14 18:06] LABS: Urine Bacteria NONE SEEN /hpf (None Seen); Urine Blood Negative /uL (Negative); Urine Specific Gravity 1.009 (1.001-1.035); Urine WBC 5 /hpf (0 - 5)
[2021-11-14] MEDS ORDERED: hydrALAZINE HCL 20 MG/ML VL IV PRN (18:15)
[2021-11-14] MEDS ORDERED: DOCUSATE SOD 100 MG CAP PO PRN (18:15)
[2021-11-14] MEDS ORDERED: ALPRAZolam 0.5 MG TAB PO ONE (18:15)
[2021-11-14] MEDS ORDERED: DEXTROSE (50%) 50ML SYRG IV PRN (18:15)
[2021-11-14] MEDS ORDERED: ALPRAZolam 0.5 MG TAB PO PRN (18:15)
[2021-11-14] MEDS ORDERED: FERROUS SULFATE 325mg EC TAB PO ONE (18:15)
[2021-11-14] MEDS ORDERED: HYDROcodone-ACET 5/325MG TAB PO ONE (18:15)
[2021-11-14] MEDS ORDERED: LACTULOSE 20Gm/30ML SOLN PO PRN (18:15)
[2021-11-14] MEDS ORDERED: ACETAMINOPHEN 325 MG TAB PO PRN (18:15)
[2021-11-14] MEDS ORDERED: MONTELUKAST SODIUM 10 MG TAB PO ONE (18:30)
[2021-11-14] MEDS ORDERED: IPRATROPIUM BROM 0.5 MG/2.5ML INH SOL NEB ONE (18:30)
[2021-11-14] MEDS ORDERED: MIDODRINE HCL 10 MG TAB PO PRN (18:30)
[2021-11-14] MEDS ORDERED: BUDESONIDE (INHALATION) 0.5 MG/2 ML NEB NEB ONE (18:30)
[2021-11-14] MEDS ORDERED: ALBUTEROL SULF 2.5 MG/0.5ML(0.5%) NEB SOLN NEB ONE (18:30)
[2021-11-14] MEDS ORDERED: ZOLEDRONIC ACID 4 MG in SODIUM CHL 0.9% 100 ML IV ONE (19:00)
[2021-11-14 20:09] VITALS: BP 151/80
[2021-11-14 22:00] VITALS: BP 99/69
[2021-11-14] MEDS ORDERED: IPRATROPIUM BROM 0.5 MG/2.5ML INH SOL NEB SCH (22:00)
[2021-11-14] MEDS: ACCU-CHEK COMFORT CURVE STRIP VI SCH (22:00)
[2021-11-14] MEDS ORDERED: MONTELUKAST SODIUM 10 MG TAB PO SCH (22:00)
[2021-11-14] MEDS: BUDESONIDE (INHALATION) 0.5 MG/2 ML NEB NEB SCH (22:00)
[2021-11-14] MEDS: INSULIN LANTUS (GLARGINE) 1 /0.01ml (100units/ml) SC SCH (22:49)
[2021-11-14 22:50] VITALS: BP 99/69
[2021-11-14] MEDS: ATORVASTATIN 20 MG TAB PO SCH (22:59)
[2021-11-14] MEDS: busPIRone HCL 10 MG TAB PO SCH (22:59)
[2021-11-14] MEDS: PRAMIPEXOLE DIHYDROCHLORIDE MO 0.25 MG TAB PO SCH (22:59)
[2021-11-14] MEDS: InsuLIN REG 1unit/0.01ml Soln (100units/ml) SC SCH (22:59)
[2021-11-14] MEDS: LACTATED RINGER'S 1,000 ML IV SCH (23:16)
[2021-11-14] MEDS: MORPHINE SULFATE INJECTION 2 MG/ML SYRG IV PRN (23:17)
[2021-11-14 23:23] VITALS: BP 99/69
[2021-11-14] MEDS: BETHANECHOL CHLORIDE 25 MG TAB PO SCH (23:30)
[2021-11-15 00:06] LABS: Magnesium 1.8 mg/dL (1.6-2.6); Phosphorus 3.7 mg/dL (2.5-4.90)
[2021-11-15 00:08] LABS: INR 1.1 (0.9-1.15); Partial Thromboplastin Time 26.9 sec (23.6-33.0)
[2021-11-15] MEDS: PIPERACILLIN-TAZO 4.5GM 100 ML IV SCH ×4 (01:00→19:58)
[2021-11-15 05:00] VITALS: BP 114/68
[2021-11-15] MEDS: MORPHINE SULFATE INJECTION 2 MG/ML SYRG IV PRN ×2 (05:55→23:04)
[2021-11-15] MEDS: BETHANECHOL CHLORIDE 25 MG TAB PO SCH (05:57)
[2021-11-15] MEDS: BUDESONIDE (INHALATION) 0.5 MG/2 ML NEB NEB SCH ×2 (06:05→18:27)
[2021-11-15] MEDS: SUCRALFATE 1 GM TAB PO SCH ×2 (07:00→11:30)
[2021-11-15] MEDS: InsuLIN REG 1unit/0.01ml Soln (100units/ml) SC SCH ×4 (07:00→23:02)
[2021-11-15] MEDS: LACTATED RINGER'S 1,000 ML IV SCH ×2 (07:00→19:55)
[2021-11-15] MEDS: INSULIN LANTUS (GLARGINE) 1 /0.01ml (100units/ml) SC SCH ×2 (07:00→23:03)
[2021-11-15 07:06] LABS: Basophils # (auto) 0.1 10 ^3/uL (0-0.2); Basophils % (auto) 1.2 % (0.0-2.0); Eosinophils # (auto) 0.2 10 ^3/uL (0-0.8); Hemoglobin 8.3 g/dL (12.2-16.2); Lymphocytes # (auto) 1.5 10 ^3/uL (0.4-5.4); Monocytes # (auto) 0.7 10 ^3/uL (0-1.3); Neutrophils # (auto) 2.7 10 ^3/uL (1.6-8.6)
[2021-11-15 07:09] LABS: Eosinophils % (auto) 4.5 % (0.0-7.0); Hematocrit 26.6 % (36.0-46.0); Lymphocytes % (auto) 29.3 % (10.0-50.0); Mean Corpuscular Hemoglobin 24.3 pg (28.0-32.0); Mean Corpuscular Hgb Conc. 31.3 g/dL (32.0-36.0); Mean Corpuscular Volume 77.6 fL (80.0-100.0); Monocytes % (auto) 13.1 % (0.0-12.0); Neutrophils % (auto) 51.9 % (37.0-80.0); Nucleated Red Blood Cells % 0.2 %; Red Blood Cells 3.42 10^6/uL (4.0-5.20); Red Cell Distribution Width 18.1 % (11.8-14.3); White Blood Cell 5.3 10^3/uL (4.4-10.8)
[2021-11-15 07:21] LABS: Potassium 4.1 mmol/L (3.5-5.1)
[2021-11-15 07:30] LABS: Albumin 2.4 g/dL (3.4-5.0); BUN/Creatinine Ratio 14.6
[2021-11-15 07:38] LABS: Bilirubin, Total 0.3 mg/dL (0.2-1.0); CRP High Sensitivity 5.59 mg/dL (< 0.3); Phosphorus 3.8 mg/dL (2.5-4.90); Total Protein 7.2 g/dL (6.4-8.2)
[2021-11-15 07:40] LABS: INR 1.09 (0.9-1.15)
[2021-11-15 07:54] LABS: % Iron Saturation 8.6 % (15-50)
[2021-11-15] MEDS: FERROUS SULFATE 325mg EC TAB PO SCH ×3 (08:00→18:18)
[2021-11-15 08:12] LABS: Thyroid Stimulating Hormone 2.6 uIU/mL (0.358-3.74)
[2021-11-15 08:33] VITALS: BP 113/62
[2021-11-15 08:57] LABS: Uric Acid 5.9 mg/dL (2.6-6.0)
[2021-11-15] MEDS: busPIRone HCL 10 MG TAB PO SCH ×2 (10:00→22:52)
[2021-11-15] MEDS ORDERED: PANTOPRAZOLE 40 MG/10 ML VIAL INJ IV SCH (10:00)
[2021-11-15] MEDS: ASPirin 81 mg TAB PO SCH (10:00)
[2021-11-15] MEDS: CHOLECALCIFEROL (VITD3) 2,000 UNIT CAP/TAB PO SCH (10:00)
[2021-11-15] MEDS: PRAMIPEXOLE DIHYDROCHLORIDE MO 0.25 MG TAB PO SCH ×2 (10:00→22:52)
[2021-11-15] MEDS: CITALOPRAM HYDROBR 20 MG TAB PO SCH (10:00)
[2021-11-15] MEDS: ENOXAPARIN SOD 40 MG/0.4 ML SYRINGE SC SCH (10:00)
[2021-11-15] MEDS ORDERED: fentaNYL CITRATE 100 MCG/2 ML VL ONE (10:04)
[2021-11-15] MEDS ORDERED: MEPERIDINE HCL (25 MG/ML) 1ML VIAL ONE (10:04)
[2021-11-15] MEDS ORDERED: MIDAZOLAM HCL 2MG/2ML 2ml VIAL (1mg/ml) ONE (10:04)
[2021-11-15] MEDS ORDERED: ceFAZolin 1GM/50ML 100 ML IV ONE (10:14)
[2021-11-15] MEDS ORDERED: ACCU-CHEK COMFORT CURVE STRIP VI ONE (11:00)
[2021-11-15] MEDS ORDERED: ONDANSETRON HCL 4 MG/2 ML VIAL IV PRN (11:00)
[2021-11-15] MEDS ORDERED: MORPHINE SULFATE 4 MG/ML SYR/VIAL IV PRN (11:00)
[2021-11-15] MEDS ORDERED: ePHEDrine SULFATE 50 MG/ML AMP IV PRN (11:00)
[2021-11-15] MEDS ORDERED: LABETALOL HCL 5 MG/ML 4ML SYRINGE IV PRN (11:00)
[2021-11-15] MEDS ORDERED: MIDAZOLAM HCL 2MG/2ML 2ml VIAL (1mg/ml) IV PRN (11:00)
[2021-11-15] MEDS ORDERED: LINEZOLID 600MG/300ML 300 ML IV ONE ×2 (11:00→21:00)
[2021-11-15] MEDS: ACCU-CHEK COMFORT CURVE STRIP VI SCH ×4 (11:30→22:53)
[2021-11-15] MEDS ORDERED: PROPOFOL 10 MG/ML 20 ML IV ONE (11:43)
[2021-11-15] MEDS: HYDROmorphone HCL 2 MG/ML VL IV PRN ×3 (11:55→12:15)
[2021-11-15] MEDS: DOXYCYCLINE 100MG/250ML 250 ML IV SCH (12:45)
[2021-11-15 13:00] VITALS: BP 110/53
[2021-11-15 17:00] VITALS: BP 112/61
[2021-11-15] MEDS: ALBUTEROL SULF 2.5 MG/0.5ML(0.5%) NEB SOLN NEB PRN (18:26)
[2021-11-15] MEDS: IPRATROPIUM BROM 0.5 MG/2.5ML INH SOL NEB PRN (18:27)
[2021-11-15 22:00] VITALS: BP 114/69
[2021-11-15] MEDS: ATORVASTATIN 20 MG TAB PO SCH (22:52)
[2021-11-16] MEDS: DOXYCYCLINE 100MG/250ML 250 ML IV SCH ×3 (01:13→22:55)
[2021-11-16 05:00] VITALS: BP 110/66
[2021-11-16] MEDS: BUDESONIDE (INHALATION) 0.5 MG/2 ML NEB NEB SCH ×2 (05:25→22:11)
[2021-11-16] MEDS: InsuLIN REG 1unit/0.01ml Soln (100units/ml) SC SCH ×4 (06:21→21:55)
[2021-11-16] MEDS: MORPHINE SULFATE INJECTION 2 MG/ML SYRG IV PRN ×3 (06:22→18:28)
[2021-11-16] MEDS: INSULIN LANTUS (GLARGINE) 1 /0.01ml (100units/ml) SC SCH ×2 (06:23→21:57)
[2021-11-16] MEDS: ACCU-CHEK COMFORT CURVE STRIP VI SCH ×4 (06:29→21:49)
[2021-11-16] MEDS: CITALOPRAM HYDROBR 20 MG TAB PO SCH (08:42)
[2021-11-16] MEDS: ASPirin 81 mg TAB PO SCH (08:42)
[2021-11-16] MEDS: CHOLECALCIFEROL (VITD3) 2,000 UNIT CAP/TAB PO SCH (08:43)
[2021-11-16] MEDS: ENOXAPARIN SOD 40 MG/0.4 ML SYRINGE SC SCH (08:43)
[2021-11-16] MEDS: PRAMIPEXOLE DIHYDROCHLORIDE MO 0.25 MG TAB PO SCH ×2 (08:43→21:49)
[2021-11-16] MEDS: busPIRone HCL 10 MG TAB PO SCH ×2 (08:43→21:48)
[2021-11-16] MEDS: FERROUS SULFATE 325mg EC TAB PO SCH ×3 (08:51→18:19)
[2021-11-16 09:00] VITALS: BP 117/58
[2021-11-16 09:11] LABS: Alcohol, Urine < 3.0 mg/dL (0-10); Amphetamine Screen, Urine NEGATIVE (NEGATIVE); Barbiturate Scree,Urine NEGATIVE (NEGATIVE); Benzodiazephine Screen, Urine POSITIVE (NEGATIVE); Cannabinoid Screen, Urine NEGATIVE (NEGATIVE); Cocaine Screen, Urine NEGATIVE (NEGATIVE); Phencyclidine Screen, Urine NEGATIVE (NEGATIVE); Protein, Urine 14.4 mg/dL (0.0-11.9)
[2021-11-16 09:18] LABS: Opiate Scree,Urine POSITIVE (NEGATIVE)
[2021-11-16 09:36] LABS: Urine Bacteria NONE SEEN /hpf (None Seen); Urine Blood Negative /uL (Negative); Urine Specific Gravity 1.009 (1.001-1.035); Urine WBC 22 /hpf (0 - 5)
[2021-11-16] MEDS: PIPERACILLIN-TAZO 4.5GM 100 ML IV SCH ×2 (11:20→18:28)
[2021-11-16] MEDS: LACTATED RINGER'S 1,000 ML IV SCH ×3 (11:21→22:56)
[2021-11-16 13:00] VITALS: BP 126/65
[2021-11-16 17:00] VITALS: BP 127/77
[2021-11-16] MEDS ORDERED: LIDOCAINE 1% (LOCAL ANESTH.) PF 5ml SDV ID ONE (17:45)
[2021-11-16] MEDS: SODIUM CHLOR 0.9% PF (SALINE LOCK) 10ML VIAL/SYR IV SCH (21:48)
[2021-11-16] MEDS: ATORVASTATIN 20 MG TAB PO SCH (21:49)
[2021-11-16 22:00] VITALS: BP 132/79
[2021-11-17] MEDS: PIPERACILLIN-TAZO 4.5GM 100 ML IV SCH ×3 (01:35→17:05)
[2021-11-17 05:00] VITALS: BP 126/72
[2021-11-17] MEDS: ACCU-CHEK COMFORT CURVE STRIP VI SCH ×4 (06:22→23:14)
[2021-11-17] MEDS: INSULIN LANTUS (GLARGINE) 1 /0.01ml (100units/ml) SC SCH ×2 (06:23→23:51)
[2021-11-17] MEDS: MORPHINE SULFATE INJECTION 2 MG/ML SYRG IV PRN ×3 (06:24→23:16)
[2021-11-17] MEDS: InsuLIN REG 1unit/0.01ml Soln (100units/ml) SC SCH ×4 (06:31→23:51)
[2021-11-17] MEDS: BUDESONIDE (INHALATION) 0.5 MG/2 ML NEB NEB SCH ×2 (07:55→22:11)
[2021-11-17] MEDS: IPRATROPIUM BROM 0.5 MG/2.5ML INH SOL NEB PRN (07:55)
[2021-11-17] MEDS: ALBUTEROL SULF 2.5 MG/0.5ML(0.5%) NEB SOLN NEB PRN (07:55)
[2021-11-17] MEDS: FERROUS SULFATE 325mg EC TAB PO SCH ×3 (08:20→18:44)
[2021-11-17] MEDS: busPIRone HCL 10 MG TAB PO SCH ×2 (08:52→23:14)
[2021-11-17] MEDS: CITALOPRAM HYDROBR 20 MG TAB PO SCH (08:52)
[2021-11-17] MEDS: ENOXAPARIN SOD 40 MG/0.4 ML SYRINGE SC SCH (08:52)
[2021-11-17] MEDS: CHOLECALCIFEROL (VITD3) 2,000 UNIT CAP/TAB PO SCH (08:52)
[2021-11-17] MEDS: PRAMIPEXOLE DIHYDROCHLORIDE MO 0.25 MG TAB PO SCH ×2 (08:52→23:14)
[2021-11-17] MEDS: ASPirin 81 mg TAB PO SCH (08:52)
[2021-11-17] MEDS: SODIUM CHLOR 0.9% PF (SALINE LOCK) 10ML VIAL/SYR IV SCH ×2 (08:53→23:13)
[2021-11-17] MEDS: DOXYCYCLINE 100MG/250ML 250 ML IV SCH ×2 (08:53→23:13)
[2021-11-17 09:00] VITALS: BP 115/62
[2021-11-17 12:30] VITALS: BP 111/67
[2021-11-17 17:00] VITALS: BP 112/62
[2021-11-17 19:27] VITALS: BP 112/62
[2021-11-17 22:00] VITALS: BP 124/73
[2021-11-17] MEDS: ATORVASTATIN 20 MG TAB PO SCH (23:14)
[2021-11-18] MEDS: PIPERACILLIN-TAZO 4.5GM 100 ML IV SCH ×2 (01:13→09:11)
[2021-11-18 05:00] VITALS: BP 101/60
[2021-11-18] MEDS: HYDROcodone-ACET 5/325MG TAB PO PRN ×2 (06:32→22:04)
[2021-11-18] MEDS: InsuLIN REG 1unit/0.01ml Soln (100units/ml) SC SCH ×4 (06:33→22:43)
[2021-11-18] MEDS: ACCU-CHEK COMFORT CURVE STRIP VI SCH ×4 (06:33→21:30)
[2021-11-18] MEDS: INSULIN LANTUS (GLARGINE) 1 /0.01ml (100units/ml) SC SCH ×2 (06:39→22:43)
[2021-11-18] MEDS: BUDESONIDE (INHALATION) 0.5 MG/2 ML NEB NEB SCH ×2 (07:32→19:32)
[2021-11-18] MEDS: IPRATROPIUM BROM 0.5 MG/2.5ML INH SOL NEB PRN (07:32)
[2021-11-18] MEDS: ALBUTEROL SULF 2.5 MG/0.5ML(0.5%) NEB SOLN NEB PRN ×2 (07:32→19:32)
[2021-11-18 08:00] VITALS: BP 104/52
[2021-11-18] MEDS: ASPirin 81 mg TAB PO SCH (09:09)
[2021-11-18] MEDS: CHOLECALCIFEROL (VITD3) 2,000 UNIT CAP/TAB PO SCH (09:09)
[2021-11-18] MEDS: CITALOPRAM HYDROBR 20 MG TAB PO SCH (09:09)
[2021-11-18] MEDS: ENOXAPARIN SOD 40 MG/0.4 ML SYRINGE SC SCH (09:10)
[2021-11-18] MEDS: busPIRone HCL 10 MG TAB PO SCH ×2 (09:10→21:30)
[2021-11-18] MEDS: DOXYCYCLINE 100MG/250ML 250 ML IV SCH ×2 (09:10→21:29)
[2021-11-18] MEDS: FERROUS SULFATE 325mg EC TAB PO SCH ×3 (09:10→17:17)
[2021-11-18] MEDS: PRAMIPEXOLE DIHYDROCHLORIDE MO 0.25 MG TAB PO SCH ×2 (09:10→21:30)
[2021-11-18] MEDS: SODIUM CHLOR 0.9% PF (SALINE LOCK) 10ML VIAL/SYR IV SCH ×2 (09:10→21:29)
[2021-11-18] MEDS: MORPHINE SULFATE INJECTION 2 MG/ML SYRG IV PRN ×2 (10:35→17:18)
[2021-11-18 12:00] VITALS: BP 114/71
[2021-11-18 16:00] VITALS: BP 135/69
[2021-11-18 20:00] VITALS: BP 115/66
[2021-11-18] MEDS: LINEZOLID 600MG TABLET PO SCH (21:30)
[2021-11-18] MEDS: ATORVASTATIN 20 MG TAB PO SCH (21:30)
[2021-11-18 22:00] VITALS: BP 115/66
[2021-11-19] MEDS: MORPHINE SULFATE INJECTION 2 MG/ML SYRG IV PRN ×3 (01:51→19:09)
[2021-11-19 05:00] VITALS: BP 100/57
[2021-11-19] MEDS: InsuLIN REG 1unit/0.01ml Soln (100units/ml) SC SCH ×4 (07:00→21:39)
[2021-11-19] MEDS: ACCU-CHEK COMFORT CURVE STRIP VI SCH ×4 (07:03→21:36)
[2021-11-19] MEDS: INSULIN LANTUS (GLARGINE) 1 /0.01ml (100units/ml) SC SCH ×2 (07:15→21:38)
[2021-11-19 08:00] VITALS: BP 119/70
[2021-11-19] MEDS: FERROUS SULFATE 325mg EC TAB PO SCH ×3 (08:30→17:42)
[2021-11-19] MEDS: SODIUM CHLOR 0.9% PF (SALINE LOCK) 10ML VIAL/SYR IV SCH ×2 (10:00→21:12)
[2021-11-19] MEDS: BUDESONIDE (INHALATION) 0.5 MG/2 ML NEB NEB SCH ×2 (10:01→21:53)
[2021-11-19] MEDS: DOXYCYCLINE 100MG/250ML 250 ML IV SCH ×2 (10:44→21:08)
[2021-11-19] MEDS: CITALOPRAM HYDROBR 20 MG TAB PO SCH (10:49)
[2021-11-19] MEDS: busPIRone HCL 10 MG TAB PO SCH ×2 (10:49→21:09)
[2021-11-19] MEDS: PRAMIPEXOLE DIHYDROCHLORIDE MO 0.25 MG TAB PO SCH ×2 (10:49→21:12)
[2021-11-19] MEDS: CHOLECALCIFEROL (VITD3) 2,000 UNIT CAP/TAB PO SCH (10:50)
[2021-11-19] MEDS: LINEZOLID 600MG TABLET PO SCH ×2 (10:50→21:12)
[2021-11-19] MEDS: ENOXAPARIN SOD 40 MG/0.4 ML SYRINGE SC SCH (10:50)
[2021-11-19] MEDS: ASPirin 81 mg TAB PO SCH (10:50)
[2021-11-19 12:00] VITALS: BP 120/72
[2021-11-19] MEDS: HYDROcodone-ACET 5/325MG TAB PO PRN (14:55)
[2021-11-19 16:00] VITALS: BP 113/67
[2021-11-19] MEDS: ATORVASTATIN 20 MG TAB PO SCH (21:09)
[2021-11-19] MEDS: IPRATROPIUM BROM 0.5 MG/2.5ML INH SOL NEB PRN (21:53)
[2021-11-19] MEDS: ALBUTEROL SULF 2.5 MG/0.5ML(0.5%) NEB SOLN NEB PRN (21:53)
[2021-11-19 21:57] VITALS: BP 122/80
[2021-11-20] MEDS: MORPHINE SULFATE INJECTION 2 MG/ML SYRG IV PRN (03:52)
[2021-11-20 04:51] VITALS: BP 102/61
[2021-11-20] MEDS: ACCU-CHEK COMFORT CURVE STRIP VI SCH ×4 (06:14→21:43)
[2021-11-20] MEDS: InsuLIN REG 1unit/0.01ml Soln (100units/ml) SC SCH ×4 (06:15→21:42)
[2021-11-20] MEDS: INSULIN LANTUS (GLARGINE) 1 /0.01ml (100units/ml) SC SCH ×2 (06:22→21:49)
[2021-11-20] MEDS: BUDESONIDE (INHALATION) 0.5 MG/2 ML NEB NEB SCH ×2 (06:46→22:15)
[2021-11-20] MEDS: FERROUS SULFATE 325mg EC TAB PO SCH ×3 (08:40→18:28)
[2021-11-20 09:09] VITALS: BP 113/67
[2021-11-20] MEDS: SODIUM CHLOR 0.9% PF (SALINE LOCK) 10ML VIAL/SYR IV SCH ×2 (10:00→21:30)
[2021-11-20] MEDS: busPIRone HCL 10 MG TAB PO SCH ×2 (10:15→21:29)
[2021-11-20] MEDS: PRAMIPEXOLE DIHYDROCHLORIDE MO 0.25 MG TAB PO SCH ×2 (10:15→21:29)
[2021-11-20] MEDS: CHOLECALCIFEROL (VITD3) 2,000 UNIT CAP/TAB PO SCH (10:15)
[2021-11-20] MEDS: CITALOPRAM HYDROBR 20 MG TAB PO SCH (10:15)
[2021-11-20] MEDS: DOXYCYCLINE 100MG/250ML 250 ML IV SCH ×2 (10:17→21:29)
[2021-11-20] MEDS: HYDROcodone-ACET 5/325MG TAB PO PRN (10:27)
[2021-11-20] MEDS: ASPirin 81 mg TAB PO SCH (10:28)
[2021-11-20] MEDS: LINEZOLID 600MG TABLET PO SCH ×2 (10:28→21:42)
[2021-11-20] MEDS: ENOXAPARIN SOD 40 MG/0.4 ML SYRINGE SC SCH (10:28)
[2021-11-20 13:00] VITALS: BP 143/67
[2021-11-20] MEDS: MORPHINE SULFATE 4 MG/ML SYR/VIAL IV PRN ×2 (15:51→22:04)
[2021-11-20 17:06] VITALS: BP 118/68
[2021-11-20] MEDS: ATORVASTATIN 20 MG TAB PO SCH (21:29)
[2021-11-20] MEDS ORDERED: MORPHINE SULFATE 4 MG/ML SYR/VIAL ONE (21:41)
[2021-11-20 22:00] VITALS: BP 142/92
[2021-11-20] MEDS: ALBUTEROL SULF 2.5 MG/0.5ML(0.5%) NEB SOLN NEB PRN (22:15)
[2021-11-20] MEDS: IPRATROPIUM BROM 0.5 MG/2.5ML INH SOL NEB PRN (22:15)
[2021-11-21 05:00] VITALS: BP 115/70
[2021-11-21] MEDS: HYDROcodone-ACET 5/325MG TAB PO PRN (05:23)
[2021-11-21 05:51] LABS: Basophils # (auto) 0 10 ^3/uL (0-0.2); Monocytes # (auto) 0.5 10 ^3/uL (0-1.3); Red Cell Distribution Width 18.3 % (11.8-14.3)
[2021-11-21 05:54] LABS: Basophils % (auto) 0.8 % (0.0-2.0); Eosinophils # (auto) 0.2 10 ^3/uL (0-0.8); Eosinophils % (auto) 2.8 % (0.0-7.0); Hematocrit 28.5 % (36.0-46.0); Hemoglobin 9.1 g/dL (12.2-16.2); Lymphocytes # (auto) 1.8 10 ^3/uL (0.4-5.4); Lymphocytes % (auto) 32.1 % (10.0-50.0); Mean Corpuscular Hemoglobin 24.4 pg (28.0-32.0); Mean Corpuscular Hgb Conc. 32.1 g/dL (32.0-36.0); Mean Corpuscular Volume 75.9 fL (80.0-100.0); Monocytes % (auto) 8.3 % (0.0-12.0); Neutrophils # (auto) 3.2 10 ^3/uL (1.6-8.6); Red Blood Cells 3.75 10^6/uL (4.0-5.20); White Blood Cell 5.7 10^3/uL (4.4-10.8)
[2021-11-21 06:03] LABS: Albumin 2.4 g/dL (3.4-5.0); Calcium 9.3 mg/dL (8.5-10.1); Potassium 4.1 mmol/L (3.5-5.1)
[2021-11-21 06:06] LABS: BUN/Creatinine Ratio 14.6; Bilirubin, Total 0.1 mg/dL (0.2-1.0); CRP High Sensitivity 0.58 mg/dL (< 0.3)
[2021-11-21] MEDS: ACCU-CHEK COMFORT CURVE STRIP VI SCH ×4 (06:35→22:00)
[2021-11-21] MEDS: InsuLIN REG 1unit/0.01ml Soln (100units/ml) SC SCH ×4 (06:35→22:48)
[2021-11-21] MEDS: INSULIN LANTUS (GLARGINE) 1 /0.01ml (100units/ml) SC SCH ×2 (06:36→22:49)
[2021-11-21] MEDS: BUDESONIDE (INHALATION) 0.5 MG/2 ML NEB NEB SCH ×2 (06:43→19:33)
[2021-11-21] MEDS: ALBUTEROL SULF 2.5 MG/0.5ML(0.5%) NEB SOLN NEB PRN (06:43)
[2021-11-21 08:37] VITALS: BP 108/63
[2021-11-21] MEDS: FERROUS SULFATE 325mg EC TAB PO SCH ×3 (08:38→18:41)
[2021-11-21] MEDS: ASPirin 81 mg TAB PO SCH (10:00)
[2021-11-21] MEDS: SODIUM CHLOR 0.9% PF (SALINE LOCK) 10ML VIAL/SYR IV SCH ×2 (10:00→22:40)
[2021-11-21] MEDS: busPIRone HCL 10 MG TAB PO SCH ×2 (10:30→22:40)
[2021-11-21] MEDS: PRAMIPEXOLE DIHYDROCHLORIDE MO 0.25 MG TAB PO SCH ×2 (10:30→22:40)
[2021-11-21] MEDS: CHOLECALCIFEROL (VITD3) 2,000 UNIT CAP/TAB PO SCH (10:30)
[2021-11-21] MEDS: LINEZOLID 600MG TABLET PO SCH ×2 (10:31→22:41)
[2021-11-21] MEDS: ENOXAPARIN SOD 40 MG/0.4 ML SYRINGE SC SCH (10:31)
[2021-11-21] MEDS: DOXYCYCLINE 100MG/250ML 250 ML IV SCH (10:31)
[2021-11-21] MEDS: CITALOPRAM HYDROBR 20 MG TAB PO SCH (10:31)
[2021-11-21] MEDS: MORPHINE SULFATE 4 MG/ML SYR/VIAL IV PRN ×3 (10:42→23:10)
[2021-11-21 12:44] VITALS: BP 127/77
[2021-11-21 16:41] VITALS: BP 113/70
[2021-11-21] MEDS: Glucerna Carbsteady SHAKE Vanilla 8oz PO SCH (18:00)
[2021-11-21 21:05] VITALS: BP 120/73
[2021-11-21] MEDS: ATORVASTATIN 20 MG TAB PO SCH (22:40)
[2021-11-22 05:00] VITALS: BP 100/63
[2021-11-22] MEDS: MORPHINE SULFATE 4 MG/ML SYR/VIAL IV PRN (06:42)
[2021-11-22] MEDS: InsuLIN REG 1unit/0.01ml Soln (100units/ml) SC SCH ×3 (06:49→16:40)
[2021-11-22] MEDS: ACCU-CHEK COMFORT CURVE STRIP VI SCH ×3 (07:00→16:38)
[2021-11-22] MEDS: BUDESONIDE (INHALATION) 0.5 MG/2 ML NEB NEB SCH (07:55)
[2021-11-22] MEDS: INSULIN LANTUS (GLARGINE) 1 /0.01ml (100units/ml) SC SCH (07:55)
[2021-11-22] MEDS: Glucerna Carbsteady SHAKE Vanilla 8oz PO SCH ×2 (08:00→17:25)
[2021-11-22] MEDS: ALBUTEROL SULF 2.5 MG/0.5ML(0.5%) NEB SOLN NEB PRN (08:02)
[2021-11-22 09:00] VITALS: BP 105/59
[2021-11-22] MEDS: ASPirin 81 mg TAB PO SCH (09:59)
[2021-11-22] MEDS: FERROUS SULFATE 325mg EC TAB PO SCH ×3 (09:59→17:25)
[2021-11-22] MEDS: SODIUM CHLOR 0.9% PF (SALINE LOCK) 10ML VIAL/SYR IV SCH (09:59)
[2021-11-22] MEDS: busPIRone HCL 10 MG TAB PO SCH (10:00)
[2021-11-22] MEDS: CITALOPRAM HYDROBR 20 MG TAB PO SCH (10:00)
[2021-11-22] MEDS: PRAMIPEXOLE DIHYDROCHLORIDE MO 0.25 MG TAB PO SCH (10:00)
[2021-11-22] MEDS: ENOXAPARIN SOD 40 MG/0.4 ML SYRINGE SC SCH (10:01)
[2021-11-22] MEDS: CHOLECALCIFEROL (VITD3) 2,000 UNIT CAP/TAB PO SCH (10:01)
[2021-11-22] MEDS: LINEZOLID 600MG TABLET PO SCH (12:06)
[2021-11-22 13:00] VITALS: BP 114/72
[2021-11-22] MEDS: HYDROcodone-ACET 5/325MG TAB PO PRN (14:33)
== END 2021-11-22 18:55 | DRG 638 ==
LOC: ER 11:43 → OVERFLOW 17:01 → WEST WING 22:05
PROVIDERS: ADMIT Hospitalist; ATTEND Internal Medicine
PROC: 0Y9N0ZZ Drainage of Left Foot, Open Approach (ICD-10-PCS; principal; 2021-11-15 10:30)
PROC: 05HB33Z Insertion of Infusion Device into Right Basilic Vein, Percutaneous Approach (ICD-10-PCS; 2021-11-16)
PROC: B54MZZA Ultrasonography of Right Upper Extremity Veins, Guidance (ICD-10-PCS; 2021-11-16)
DX: E11.69 Type 2 diabetes mellitus with other specified complication (principal); N39.0 Urinary tract infection, site not specified; E44.0 Moderate protein-calorie malnutrition; L02.612 Cutaneous abscess of left foot; L03.116 Cellulitis of left lower limb; M86.8X7 Other osteomyelitis, ankle and foot; K31.84 Gastroparesis; D50.9 Iron deficiency anemia, unspecified; E11.42 Type 2 diabetes mellitus with diabetic polyneuropathy; E11.43 Type 2 diabetes mellitus with diabetic autonomic (poly)neuropathy; E78.5 Hyperlipidemia, unspecified; E83.52 Hypercalcemia; F32.9 Major depressive disorder, single episode, unspecified; F41.9 Anxiety disorder, unspecified; G90.1 Familial dysautonomia [Riley-Day]; I10 Essential (primary) hypertension; I25.10 Atherosclerotic heart disease of native coronary artery without angina pectoris; J44.9 Chronic obstructive pulmonary disease, unspecified; K21.9 Gastro-esophageal reflux disease without esophagitis; E66.01 Morbid (severe) obesity due to excess calories; B95.2 Enterococcus as the cause of diseases classified elsewhere; F17.200 Nicotine dependence, unspecified, uncomplicated; Z20.822 Contact with and (suspected) exposure to COVID-19; I25.2 Old myocardial infarction; Z71.6 Tobacco abuse counseling; Z89.519 Acquired absence of unspecified leg below knee; Z90.710 Acquired absence of both cervix and uterus; Z98.1 Arthrodesis status; Z83.3 Family history of diabetes mellitus; Z80.41 Family history of malignant neoplasm of ovary; Z80.1 Family history of malignant neoplasm of trachea, bronchus and lung; Z79.82 Long term (current) use of aspirin; Z79.4 Long term (current) use of insulin; Z91.19 Patient's noncompliance with other medical treatment and regimen; Z79.899 Other long term (current) drug therapy; Z68.35 Body mass index [BMI] 35.0-35.9, adult; Z90.49 Acquired absence of other specified parts of digestive tract
CPT/HCPCS: 36415; 36569; 71045; 73700; 80053; 80061; 80307; 81001; 82550; 82728; 82962; 83036; 83540; 83550; 83615; 83690; 83735; 83880; 83970; 84100; 84156; 84443; 84484; 84550; 85025; 85379; 85610; 85652; 85730; 86141; 86850; 86900; 86901; 87040; 87070; 87075; 87077; 87086; 87186; 87205; 93005; 94640; 96365; 96375; C9113; G0378; J0690; J1815; J2250; J2405; J2543; J2704; J3489; J3490

== ENCOUNTER 2021-11-23 19:35 | Inpatient (IN) | payer MEDICARE, BC, MEDICAID ==
[~2021-11-23] VITALS: Ht 165.1 cm; Wt 88.4 kg
[2021-11-23 21:27] LABS: Basophils # (auto) 0.1 10 ^3/uL (0-0.2); Eosinophils # (auto) 0.1 10 ^3/uL (0-0.8); Lymphocytes # (auto) 1.7 10 ^3/uL (0.4-5.4); Mean Corpuscular Volume 76.8 fL (80.0-100.0); Monocytes # (auto) 0.3 10 ^3/uL (0-1.3); Monocytes % (auto) 3.3 % (0.0-12.0); Nucleated Red Blood Cells % 0.1 %; White Blood Cell 7.7 10^3/uL (4.4-10.8)
[2021-11-23 21:29] LABS: Eosinophils % (auto) 1.4 % (0.0-7.0); Hemoglobin 10.7 g/dL (12.2-16.2); Lymphocytes % (auto) 22.2 % (10.0-50.0); Mean Corpuscular Hemoglobin 24.9 pg (28.0-32.0); Mean Corpuscular Hgb Conc. 32.5 g/dL (32.0-36.0); Neutrophils # (auto) 5.5 10 ^3/uL (1.6-8.6); Neutrophils % (auto) 72.1 % (37.0-80.0); Red Cell Distribution Width 18.9 % (11.8-14.3)
[2021-11-23 21:48] LABS: Albumin 3.3 g/dL (3.4-5.0); Calcium 9.4 mg/dL (8.5-10.1)
[2021-11-23 21:52] LABS: BUN/Creatinine Ratio 19.3; Bilirubin, Total 0.2 mg/dL (0.2-1.0); Total Protein 8.6 g/dL (6.4-8.2)
[2021-11-23] MEDS ORDERED: LORATADINE PO PRN (22:00)
[2021-11-23] MEDS ORDERED: PSEUDOEPHEDRINE PO PRN (22:00)
[2021-11-23] MEDS: PRAMIPEXOLE DIHYDROCHLORIDE MO 0.25 MG TAB PO SCH (23:10)
[2021-11-23] MEDS: busPIRone HCL 10 MG TAB PO SCH (23:10)
[2021-11-23] MEDS: LINEZOLID 600MG/300ML 300 ML IV SCH (23:20)
[2021-11-23] MEDS: INSULIN LISPRO (HUMAN) 100 UNITS/ML ML SC SCH (23:30)
[2021-11-23] MEDS ORDERED: ONDANSETRON HCL 4 MG/2 ML VIAL IV PRN (23:30)
[2021-11-23] MEDS: OMEPRAZOLE 40 MG PO SCH (23:30)
[2021-11-23] MEDS ORDERED: ACETAMINOPHEN 325 MG TAB PO PRN (23:30)
[2021-11-23] MEDS ORDERED: DOCUSATE SOD 100 MG CAP PO PRN (23:30)
[2021-11-24] MEDS: HYDROmorphone HCL 2 MG/ML VL/or syr IV PRN ×4 (01:53→22:37)
[2021-11-24 02:47] VITALS: BP 113/64
[2021-11-24 05:00] VITALS: BP 113/64
[2021-11-24] MEDS: FUROSEMIDE 20 MG TAB PO SCH (06:32)
[2021-11-24] MEDS: SODIUM CHLOR 0.9% PF (SALINE LOCK) 10ML VIAL/SYR IV SCH ×3 (06:33→21:01)
[2021-11-24] MEDS: MIDODRINE HCL 10 MG TAB PO SCH ×3 (06:33→21:03)
[2021-11-24] MEDS: INSULIN LISPRO (HUMAN) 100 UNITS/ML ML SC SCH ×3 (06:36→21:21)
[2021-11-24 07:00] LABS: Urine Bacteria NONE SEEN /hpf (None Seen); Urine Blood Negative /uL (Negative); Urine Specific Gravity 1.011 (1.001-1.035); Urine WBC 14 /hpf (0 - 5)
[2021-11-24 08:59] VITALS: BP 136/73
[2021-11-24] MEDS: LINEZOLID 600MG/300ML 300 ML IV SCH ×2 (09:28→21:01)
[2021-11-24] MEDS: PRAVASTATIN SODIUM 20 MG TAB PO SCH (09:29)
[2021-11-24] MEDS: PRAMIPEXOLE DIHYDROCHLORIDE MO 0.25 MG TAB PO SCH ×2 (09:29→21:03)
[2021-11-24] MEDS: CITALOPRAM HYDROBR 20 MG TAB PO SCH (09:30)
[2021-11-24] MEDS: ASPirin-EC 81 mg tab PO SCH (09:30)
[2021-11-24] MEDS: OMEPRAZOLE 40 MG PO SCH ×2 (09:30→21:01)
[2021-11-24] MEDS: busPIRone HCL 10 MG TAB PO SCH ×2 (09:30→21:02)
[2021-11-24] MEDS ORDERED: FLUTICASONE-VILANTEROL 100-25mCg INHALER IN SCH (10:00)
[2021-11-24 13:00] VITALS: BP 119/62
[2021-11-24] MEDS ORDERED: ERGOCALCIFEROL 50,000 UNIT(1.25MG) CAP PO SCH (14:45)
[2021-11-24] MEDS ORDERED: SODIUM FERR GLUC 62.5MG/5ML 125 MG in SODIUM CHL 0.9% 100 ML IV ONE (14:45)
[2021-11-24] MEDS ORDERED: SODIUM CHLORIDE 0.9% 1,000 ML IV ONE (14:45)
[2021-11-24 17:00] VITALS: BP 105/58
[2021-11-24 22:41] VITALS: BP 105/52
[2021-11-25 05:21] VITALS: BP 102/61
[2021-11-25 06:18] LABS: Basophils # (auto) 0.1 10 ^3/uL (0-0.2); Basophils % (auto) 1.7 % (0.0-2.0); Eosinophils # (auto) 0.3 10 ^3/uL (0-0.8); Eosinophils % (auto) 6.2 % (0.0-7.0); Hematocrit 31.2 % (36.0-46.0); Lymphocytes # (auto) 2.2 10 ^3/uL (0.4-5.4); Lymphocytes % (auto) 40.9 % (10.0-50.0); Mean Corpuscular Hemoglobin 24.8 pg (28.0-32.0); Mean Corpuscular Hgb Conc. 32.1 g/dL (32.0-36.0); Mean Corpuscular Volume 77.2 fL (80.0-100.0); Monocytes # (auto) 0.5 10 ^3/uL (0-1.3); Monocytes % (auto) 9.3 % (0.0-12.0); Neutrophils # (auto) 2.2 10 ^3/uL (1.6-8.6); Neutrophils % (auto) 41.9 % (37.0-80.0); Nucleated Red Blood Cells % 0.2 %; Red Blood Cells 4.04 10^6/uL (4.0-5.20); Red Cell Distribution Width 18.6 % (11.8-14.3); White Blood Cell 5.3 10^3/uL (4.4-10.8)
[2021-11-25] MEDS: SODIUM CHLOR 0.9% PF (SALINE LOCK) 10ML VIAL/SYR IV SCH ×3 (06:28→21:40)
[2021-11-25] MEDS: MIDODRINE HCL 10 MG TAB PO SCH ×3 (06:28→21:40)
[2021-11-25] MEDS: FUROSEMIDE 20 MG TAB PO SCH (06:29)
[2021-11-25] MEDS: HYDROmorphone HCL 2 MG/ML VL/or syr IV PRN ×3 (06:30→18:30)
[2021-11-25] MEDS: INSULIN LISPRO (HUMAN) 100 UNITS/ML ML SC SCH ×3 (06:32→21:45)
[2021-11-25 06:37] LABS: Potassium 4.8 mmol/L (3.5-5.1)
[2021-11-25 06:42] LABS: BUN/Creatinine Ratio 15.5; Calcium 9.2 mg/dL (8.5-10.1)
[2021-11-25] MEDS: LINEZOLID 600MG/300ML 300 ML IV SCH (08:28)
[2021-11-25] MEDS: CITALOPRAM HYDROBR 20 MG TAB PO SCH (08:29)
[2021-11-25] MEDS: ASPirin-EC 81 mg tab PO SCH (08:29)
[2021-11-25] MEDS: ENOXAPARIN SOD 40 MG/0.4 ML SYRINGE SC SCH (08:29)
[2021-11-25] MEDS: PRAVASTATIN SODIUM 20 MG TAB PO SCH (08:29)
[2021-11-25] MEDS: busPIRone HCL 10 MG TAB PO SCH ×2 (08:29→21:40)
[2021-11-25] MEDS: PRAMIPEXOLE DIHYDROCHLORIDE MO 0.25 MG TAB PO SCH ×2 (08:29→21:40)
[2021-11-25 09:00] VITALS: BP 102/54
[2021-11-25] MEDS: HYDROcodone-ACET 5/325MG TAB PO PRN ×2 (10:30→16:52)
[2021-11-25 13:00] VITALS: BP 124/66
[2021-11-25] MEDS ORDERED: VANCOMYCIN PER PHARMACY 0 MG IV SCH (13:15)
[2021-11-25] MEDS ORDERED: VANCOMYCIN 1GM/250ML 250 ML IV ONE (13:30)
[2021-11-25] MEDS: SODIUM FERR GLUC 62.5MG/5ML 125 MG in SODIUM CHL 0.9% 100 ML IV SCH (13:47)
[2021-11-25 16:32] VITALS: BP 112/60
[2021-11-25] MEDS: PANTOPRAZOLE 40 MG TAB PO SCH (17:09)
[2021-11-25 22:14] VITALS: BP 102/45
[2021-11-26] MEDS: HYDROmorphone HCL 2 MG/ML VL/or syr IV PRN ×5 (03:17→22:16)
[2021-11-26] MEDS: VANCOMYCIN 1GM/250ML 250 ML IV SCH ×3 (03:18→23:00)
[2021-11-26 05:12] VITALS: BP 113/65
[2021-11-26 06:03] LABS: Basophils # (auto) 0.1 10 ^3/uL (0-0.2); Basophils % (auto) 1.7 % (0.0-2.0); Eosinophils # (auto) 0.3 10 ^3/uL (0-0.8); Eosinophils % (auto) 6.3 % (0.0-7.0); Hematocrit 30.7 % (36.0-46.0); Hemoglobin 9.7 g/dL (12.2-16.2); Lymphocytes # (auto) 1.6 10 ^3/uL (0.4-5.4); Lymphocytes % (auto) 33.4 % (10.0-50.0); Mean Corpuscular Hemoglobin 24.4 pg (28.0-32.0); Mean Corpuscular Hgb Conc. 31.7 g/dL (32.0-36.0); Mean Corpuscular Volume 77.1 fL (80.0-100.0); Monocytes # (auto) 0.3 10 ^3/uL (0-1.3); Monocytes % (auto) 5.5 % (0.0-12.0); Neutrophils # (auto) 2.6 10 ^3/uL (1.6-8.6); Neutrophils % (auto) 53.1 % (37.0-80.0); Nucleated Red Blood Cells % 0.2 %; Red Blood Cells 3.99 10^6/uL (4.0-5.20); Red Cell Distribution Width 18.6 % (11.8-14.3); White Blood Cell 4.8 10^3/uL (4.4-10.8)
[2021-11-26] MEDS: SODIUM CHLOR 0.9% PF (SALINE LOCK) 10ML VIAL/SYR IV SCH ×3 (06:03→21:57)
[2021-11-26] MEDS: MIDODRINE HCL 10 MG TAB PO SCH ×3 (06:03→21:57)
[2021-11-26] MEDS: INSULIN LISPRO (HUMAN) 100 UNITS/ML ML SC SCH ×3 (06:09→21:58)
[2021-11-26] MEDS: FUROSEMIDE 20 MG TAB PO SCH (06:12)
[2021-11-26 06:22] LABS: BUN/Creatinine Ratio 12.2; Calcium 9.2 mg/dL (8.5-10.1); Potassium 4.4 mmol/L (3.5-5.1)
[2021-11-26 08:00] VITALS: BP 110/63
[2021-11-26] MEDS: busPIRone HCL 10 MG TAB PO SCH ×2 (09:10→21:57)
[2021-11-26] MEDS: PRAMIPEXOLE DIHYDROCHLORIDE MO 0.25 MG TAB PO SCH ×2 (09:11→21:57)
[2021-11-26] MEDS: ASPirin-EC 81 mg tab PO SCH (09:11)
[2021-11-26] MEDS: CITALOPRAM HYDROBR 20 MG TAB PO SCH (09:11)
[2021-11-26] MEDS: PRAVASTATIN SODIUM 20 MG TAB PO SCH (09:12)
[2021-11-26] MEDS: PANTOPRAZOLE 40 MG TAB PO SCH (09:12)
[2021-11-26] MEDS: ENOXAPARIN SOD 40 MG/0.4 ML SYRINGE SC SCH (09:12)
[2021-11-26 09:31] VITALS: BP 136/74
[2021-11-26] MEDS ORDERED: cefTRIAXone 1GM/50ML D5W 50 ML IV ONE (10:45)
[2021-11-26] MEDS: SODIUM FERR GLUC 62.5MG/5ML 125 MG in SODIUM CHL 0.9% 100 ML IV SCH (10:53)
[2021-11-26 12:59] VITALS: BP 125/55
[2021-11-26 16:52] VITALS: BP 99/60
[2021-11-26] MEDS: HYDROcodone-ACET 5/325MG TAB PO PRN (20:37)
[2021-11-26 22:00] VITALS: BP 126/75
[2021-11-27 05:00] VITALS: BP 130/65
[2021-11-27] MEDS: HYDROmorphone HCL 2 MG/ML VL/or syr IV PRN ×3 (05:11→21:29)
[2021-11-27 05:40] LABS: Basophils # (auto) 0.1 10 ^3/uL (0-0.2); Basophils % (auto) 2.2 % (0.0-2.0); Eosinophils # (auto) 0.3 10 ^3/uL (0-0.8); Eosinophils % (auto) 7.1 % (0.0-7.0); Hematocrit 30.8 % (36.0-46.0); Hemoglobin 9.7 g/dL (12.2-16.2); Lymphocytes # (auto) 1.6 10 ^3/uL (0.4-5.4); Lymphocytes % (auto) 34.9 % (10.0-50.0); Mean Corpuscular Hemoglobin 24.1 pg (28.0-32.0); Mean Corpuscular Hgb Conc. 31.6 g/dL (32.0-36.0); Mean Corpuscular Volume 76.2 fL (80.0-100.0); Monocytes # (auto) 0.5 10 ^3/uL (0-1.3); Monocytes % (auto) 11.1 % (0.0-12.0); Neutrophils % (auto) 44.7 % (37.0-80.0); Nucleated Red Blood Cells % 0.2 %; Red Blood Cells 4.04 10^6/uL (4.0-5.20); Red Cell Distribution Width 18.9 % (11.8-14.3); White Blood Cell 4.6 10^3/uL (4.4-10.8)
[2021-11-27 05:55] LABS: Alanine Aminotransferase 14 U/L (13-56); Albumin 2.6 g/dL (3.4-5.0); Anion Gap 7 (5-15); Aspartate Aminotransferase 11 U/L (15-37); BUN/Creatinine Ratio 15.9; Blood Urea Nitrogen 13 mg/dL (7-18); Calcium 8.9 mg/dL (8.5-10.1); Carbon Dioxide 26 mmol/L (21-32); Chloride 106 mmol/L (98-107); GFR African American 92 mL/min; GFR Non-African American 76 mL/min; Glucose 181 mg/dL (74-106); Potassium 4.3 mmol/L (3.5-5.1); Sodium 139 mmol/L (136-145)
[2021-11-27 05:58] LABS: Alkaline Phosphatase 95 U/L (45-117); Bilirubin, Total 0.2 mg/dL (0.2-1.0); Total Protein 6.6 g/dL (6.4-8.2)
[2021-11-27] MEDS: MIDODRINE HCL 10 MG TAB PO SCH ×3 (06:09→21:26)
[2021-11-27] MEDS: SODIUM CHLOR 0.9% PF (SALINE LOCK) 10ML VIAL/SYR IV SCH ×3 (06:09→22:00)
[2021-11-27] MEDS: INSULIN LISPRO (HUMAN) 100 UNITS/ML ML SC SCH ×3 (06:10→22:04)
[2021-11-27] MEDS: FUROSEMIDE 20 MG TAB PO SCH (06:33)
[2021-11-27 09:00] VITALS: BP 125/68
[2021-11-27] MEDS: VANCOMYCIN 1GM/250ML 250 ML IV SCH ×2 (09:00→17:07)
[2021-11-27] MEDS: PRAVASTATIN SODIUM 20 MG TAB PO SCH (09:15)
[2021-11-27] MEDS: busPIRone HCL 10 MG TAB PO SCH ×2 (09:15→21:26)
[2021-11-27] MEDS: ASPirin-EC 81 mg tab PO SCH (09:16)
[2021-11-27] MEDS: PRAMIPEXOLE DIHYDROCHLORIDE MO 0.25 MG TAB PO SCH ×2 (09:16→21:26)
[2021-11-27] MEDS: HYDROcodone-ACET 5/325MG TAB PO PRN ×2 (09:16→14:29)
[2021-11-27] MEDS: PANTOPRAZOLE 40 MG TAB PO SCH (09:16)
[2021-11-27] MEDS: cefTRIAXone 1GM/50ML D5W 50 ML IV SCH (09:17)
[2021-11-27] MEDS: ENOXAPARIN SOD 40 MG/0.4 ML SYRINGE SC SCH (09:17)
[2021-11-27] MEDS: CITALOPRAM HYDROBR 20 MG TAB PO SCH (09:22)
[2021-11-27 13:00] VITALS: BP 145/70
[2021-11-27] MEDS: SODIUM FERR GLUC 62.5MG/5ML 125 MG in SODIUM CHL 0.9% 100 ML IV SCH (14:12)
[2021-11-27 17:26] VITALS: BP 103/61
[2021-11-27 22:00] VITALS: BP 130/66
[2021-11-28] MEDS: HYDROcodone-ACET 5/325MG TAB PO PRN ×3 (02:33→22:49)
[2021-11-28 05:00] VITALS: BP 144/71
[2021-11-28] MEDS: INSULIN LISPRO (HUMAN) 100 UNITS/ML ML SC SCH ×3 (05:25→22:45)
[2021-11-28] MEDS: SODIUM CHLOR 0.9% PF (SALINE LOCK) 10ML VIAL/SYR IV SCH ×3 (05:26→22:00)
[2021-11-28] MEDS: MIDODRINE HCL 10 MG TAB PO SCH ×3 (05:26→22:44)
[2021-11-28 05:34] LABS: Basophils # (auto) 0.1 10 ^3/uL (0-0.2); Basophils % (auto) 1.3 % (0.0-2.0); Eosinophils # (auto) 0.3 10 ^3/uL (0-0.8); Eosinophils % (auto) 5.3 % (0.0-7.0); Hemoglobin 10.2 g/dL (12.2-16.2); Lymphocytes # (auto) 1.8 10 ^3/uL (0.4-5.4); Lymphocytes % (auto) 29.2 % (10.0-50.0); Mean Corpuscular Hemoglobin 24.8 pg (28.0-32.0); Mean Corpuscular Hgb Conc. 31.9 g/dL (32.0-36.0); Mean Corpuscular Volume 77.5 fL (80.0-100.0); Monocytes # (auto) 0.6 10 ^3/uL (0-1.3); Monocytes % (auto) 10.2 % (0.0-12.0); Neutrophils # (auto) 3.3 10 ^3/uL (1.6-8.6); Nucleated Red Blood Cells % 0.4 %; Red Blood Cells 4.13 10^6/uL (4.0-5.20)
[2021-11-28 05:51] LABS: BUN/Creatinine Ratio 13.6; Calcium 9.4 mg/dL (8.5-10.1); Potassium 4.2 mmol/L (3.5-5.1)
[2021-11-28] MEDS: HYDROmorphone HCL 2 MG/ML VL/or syr IV PRN ×2 (08:57→17:49)
[2021-11-28 09:00] VITALS: BP 149/83
[2021-11-28] MEDS: PRAMIPEXOLE DIHYDROCHLORIDE MO 0.25 MG TAB PO SCH ×2 (10:31→22:45)
[2021-11-28] MEDS: ASPirin-EC 81 mg tab PO SCH (10:31)
[2021-11-28] MEDS: CITALOPRAM HYDROBR 20 MG TAB PO SCH (10:31)
[2021-11-28] MEDS: ENOXAPARIN SOD 40 MG/0.4 ML SYRINGE SC SCH (10:31)
[2021-11-28] MEDS: FUROSEMIDE 20 MG TAB PO SCH (10:32)
[2021-11-28] MEDS: busPIRone HCL 10 MG TAB PO SCH ×2 (10:32→22:43)
[2021-11-28] MEDS: cefTRIAXone 1GM/50ML D5W 50 ML IV SCH (10:33)
[2021-11-28] MEDS: PANTOPRAZOLE 40 MG TAB PO SCH (10:33)
[2021-11-28] MEDS: PRAVASTATIN SODIUM 20 MG TAB PO SCH (10:33)
[2021-11-28] MEDS: SODIUM FERR GLUC 62.5MG/5ML 125 MG in SODIUM CHL 0.9% 100 ML IV SCH (12:57)
[2021-11-28 17:00] VITALS: BP 105/64
[2021-11-28] MEDS: VANCOMYCIN 1GM/250ML 250 ML IV SCH (17:37)
[2021-11-28 22:00] VITALS: BP 121/73
[2021-11-29] MEDS: HYDROmorphone HCL 2 MG/ML VL/or syr IV PRN ×2 (04:43→11:09)
[2021-11-29] MEDS: SODIUM CHLOR 0.9% PF (SALINE LOCK) 10ML VIAL/SYR IV SCH ×3 (05:25→23:22)
[2021-11-29 05:30] VITALS: BP 133/72
[2021-11-29] MEDS: FUROSEMIDE 20 MG TAB PO SCH (06:05)
[2021-11-29] MEDS: MIDODRINE HCL 10 MG TAB PO SCH ×3 (06:05→23:22)
[2021-11-29 06:07] LABS: Basophils # (auto) 0.1 10 ^3/uL (0-0.2); Eosinophils # (auto) 0.3 10 ^3/uL (0-0.8); Lymphocytes % (auto) 35.6 % (10.0-50.0); Monocytes # (auto) 0.6 10 ^3/uL (0-1.3); Neutrophils # (auto) 2.6 10 ^3/uL (1.6-8.6); Nucleated Red Blood Cells % 0.3 %; Red Cell Distribution Width 18.9 % (11.8-14.3)
[2021-11-29 06:09] LABS: Eosinophils % (auto) 5.2 % (0.0-7.0); Hematocrit 30.5 % (36.0-46.0); Hemoglobin 9.9 g/dL (12.2-16.2); Mean Corpuscular Hemoglobin 24.6 pg (28.0-32.0); Mean Corpuscular Hgb Conc. 32.4 g/dL (32.0-36.0); Mean Corpuscular Volume 75.8 fL (80.0-100.0); Monocytes % (auto) 11.7 % (0.0-12.0); Neutrophils % (auto) 46.5 % (37.0-80.0); Red Blood Cells 4.03 10^6/uL (4.0-5.20); White Blood Cell 5.5 10^3/uL (4.4-10.8)
[2021-11-29] MEDS: INSULIN LISPRO (HUMAN) 100 UNITS/ML ML SC SCH ×3 (06:09→22:00)
[2021-11-29 06:18] LABS: Calcium 9.7 mg/dL (8.5-10.1); Potassium 4.1 mmol/L (3.5-5.1)
[2021-11-29 06:23] LABS: BUN/Creatinine Ratio 16.7
[2021-11-29 08:00] VITALS: BP 113/66
[2021-11-29] MEDS: CITALOPRAM HYDROBR 20 MG TAB PO SCH (09:40)
[2021-11-29] MEDS: PRAMIPEXOLE DIHYDROCHLORIDE MO 0.25 MG TAB PO SCH ×2 (09:40→23:22)
[2021-11-29] MEDS: busPIRone HCL 10 MG TAB PO SCH ×2 (09:40→23:22)
[2021-11-29] MEDS: cefTRIAXone 1GM/50ML D5W 50 ML IV SCH (09:40)
[2021-11-29] MEDS: ASPirin-EC 81 mg tab PO SCH (09:40)
[2021-11-29] MEDS: ENOXAPARIN SOD 40 MG/0.4 ML SYRINGE SC SCH (09:41)
[2021-11-29] MEDS: PRAVASTATIN SODIUM 20 MG TAB PO SCH (09:41)
[2021-11-29] MEDS: PANTOPRAZOLE 40 MG TAB PO SCH (09:41)
[2021-11-29] MEDS: HYDROcodone-ACET 5/325MG TAB PO PRN (09:42)
[2021-11-29] MEDS: HYDROCORTONE 1% TOPICAL CREAM 30 GM TUBE TOP SCH ×2 (11:31→23:23)
[2021-11-29] MEDS: SODIUM FERR GLUC 62.5MG/5ML 125 MG in SODIUM CHL 0.9% 100 ML IV SCH (11:32)
[2021-11-29 13:00] VITALS: BP 107/63
[2021-11-29] MEDS ORDERED: rifAMPin 300 MG CAP PO ONE (13:20)
[2021-11-29 16:35] VITALS: BP 115/67
[2021-11-29] MEDS: VANCOMYCIN 1GM/250ML 250 ML IV SCH (17:23)
[2021-11-29 22:25] VITALS: BP 115/60
[2021-11-30 04:59] VITALS: BP 110/65
[2021-11-30 05:13] LABS: Basophils # (auto) 0.1 10 ^3/uL (0-0.2); Basophils % (auto) 1.5 % (0.0-2.0); Eosinophils # (auto) 0.3 10 ^3/uL (0-0.8); Eosinophils % (auto) 4.4 % (0.0-7.0); Hematocrit 32.7 % (36.0-46.0); Hemoglobin 10.3 g/dL (12.2-16.2); Lymphocytes # (auto) 1.8 10 ^3/uL (0.4-5.4); Lymphocytes % (auto) 30.3 % (10.0-50.0); Mean Corpuscular Hemoglobin 24.2 pg (28.0-32.0); Mean Corpuscular Hgb Conc. 31.4 g/dL (32.0-36.0); Mean Corpuscular Volume 77.1 fL (80.0-100.0); Monocytes # (auto) 0.6 10 ^3/uL (0-1.3); Monocytes % (auto) 10.7 % (0.0-12.0); Neutrophils # (auto) 3.1 10 ^3/uL (1.6-8.6); Neutrophils % (auto) 53.1 % (37.0-80.0); Nucleated Red Blood Cells % 0.5 %; Red Blood Cells 4.25 10^6/uL (4.0-5.20); Red Cell Distribution Width 19.3 % (11.8-14.3); White Blood Cell 5.9 10^3/uL (4.4-10.8)
[2021-11-30 05:33] LABS: BUN/Creatinine Ratio 14.4; Calcium 9.8 mg/dL (8.5-10.1); Potassium 4.2 mmol/L (3.5-5.1)
[2021-11-30] MEDS: MIDODRINE HCL 10 MG TAB PO SCH ×2 (06:25→13:09)
[2021-11-30] MEDS: SODIUM CHLOR 0.9% PF (SALINE LOCK) 10ML VIAL/SYR IV SCH ×2 (06:25→13:06)
[2021-11-30] MEDS: INSULIN LISPRO (HUMAN) 100 UNITS/ML ML SC SCH ×2 (06:26→13:33)
[2021-11-30] MEDS: FUROSEMIDE 20 MG TAB PO SCH (06:26)
[2021-11-30 09:00] VITALS: BP 128/76
[2021-11-30] MEDS: ASPirin-EC 81 mg tab PO SCH (09:44)
[2021-11-30] MEDS: CITALOPRAM HYDROBR 20 MG TAB PO SCH (09:44)
[2021-11-30] MEDS: HYDROmorphone HCL 2 MG/ML VL/or syr IV PRN ×3 (09:45→18:50)
[2021-11-30] MEDS: PANTOPRAZOLE 40 MG TAB PO SCH (09:46)
[2021-11-30] MEDS: busPIRone HCL 10 MG TAB PO SCH (09:46)
[2021-11-30] MEDS: ENOXAPARIN SOD 40 MG/0.4 ML SYRINGE SC SCH (09:46)
[2021-11-30] MEDS: PRAMIPEXOLE DIHYDROCHLORIDE MO 0.25 MG TAB PO SCH (09:46)
[2021-11-30] MEDS: PRAVASTATIN SODIUM 20 MG TAB PO SCH (09:46)
[2021-11-30] MEDS: HYDROCORTONE 1% TOPICAL CREAM 30 GM TUBE TOP SCH (09:47)
[2021-11-30] MEDS ORDERED: rifAMPin 300 MG CAP PO SCH (10:00)
[2021-11-30 13:00] VITALS: BP 122/70
[2021-11-30] MEDS: SODIUM FERR GLUC 62.5MG/5ML 125 MG in SODIUM CHL 0.9% 100 ML IV SCH (13:02)
[2021-11-30 17:00] VITALS: BP 99/60
[2021-11-30] MEDS ORDERED: VANCOMYCIN 1GM/250ML 250 ML IV SCH (17:00)
[2021-11-30 18:19] VITALS: BP 101/70
[2021-11-30 18:50] VITALS: BP 101/80
== END 2021-11-30 20:00 | disposition home health service (06) | DRG 638 ==
LOC: ER 19:35 → OVERFLOW 23:18 → CENTRAL 11-24 02:47 → TELE-CENTR 11-25 04:10 → CENTRAL 11-27 05:18
PROVIDERS: ADMIT Internal Medicine; ATTEND Internal Medicine Pulmonary Disease
DX: E11.69 Type 2 diabetes mellitus with other specified complication (principal); M86.672 Other chronic osteomyelitis, left ankle and foot; N39.0 Urinary tract infection, site not specified; E11.621 Type 2 diabetes mellitus with foot ulcer; N17.0 Acute kidney failure with tubular necrosis; D50.9 Iron deficiency anemia, unspecified; I10 Essential (primary) hypertension; J44.9 Chronic obstructive pulmonary disease, unspecified; Z20.822 Contact with and (suspected) exposure to COVID-19; L08.9 Local infection of the skin and subcutaneous tissue, unspecified; L97.509 Non-pressure chronic ulcer of other part of unspecified foot with unspecified severity; Z83.3 Family history of diabetes mellitus; Z86.14 Personal history of Methicillin resistant Staphylococcus aureus infection; Z87.891 Personal history of nicotine dependence; Z88.8 Allergy status to other drugs, medicaments and biological substances; Z89.519 Acquired absence of unspecified leg below knee; Z90.710 Acquired absence of both cervix and uterus; I25.2 Old myocardial infarction; Z90.49 Acquired absence of other specified parts of digestive tract; Z79.84 Long term (current) use of oral hypoglycemic drugs
CPT/HCPCS: 36415; 80048; 80053; 80202; 81001; 82962; 85025; 87040; 87081; 87086; G0378; J0696; J1815; J2405